=== PATIENT | male | born 1940 | race Caucasian/White ===

== ENCOUNTER 2016-02-27 07:35 | Day surgery (SDC) | payer MEDICARE, OTHER ==
[2016-02-26 11:01] LABS: BASOPHILS 0.3 % (0.0-2.0); EOSINOPHILS 2.4 % (0-7); HEMATOCRIT 34.1 % (42.0-54.0); HEMOGLOBIN 10.8 g/dL (13.5-17.5); IMMATURE GRANULOCYTES 0.1 % (0-5); LYMPHOCYTES 37.6 % (15-50); MCH 27.2 pg (26.0-34.0); MCHC 31.7 g/dL (31.0-37.0); MCV 85.9 fL (80.0-100.0); MEAN PLATELET VOLUME 9.4 fL (7.4-10.4); MONOCYTES 8.7 % (2-11); NEUTROPHILS 50.9 % (40-80); RBC 3.97 10x6/uL (4.20-6.10); RDW 14.9 % (11.5-14.5); WBC 6.8 10x3/uL (4.8-10.8)
[2016-02-26 11:13] LABS: APTT 27.3 SECONDS (22.8-39.4); INR 1.2 (0.85-1.17); PROTIME 15.1 SECONDS (11.6-15.0)
[2016-02-26 11:16] LABS: ANION GAP 13.9 mmol/L (8-16); CALCIUM 8.4 mg/dL (8.5-10.1); CREATININE - SERUM 1.5 mg/dL (0.6-1.3); POTASSIUM - SERUM 4.9 mmol/L (3.5-5.1)
[2016-02-26 11:31] LABS: PLATELET COUNT 216 10x3/uL (130-400)
[~2016-02-27] VITALS: Ht 182.9 cm; Wt 102.5 kg
[~2016-02-27 07:35] MED LIST: BAYER CHEWABLE81 MG PO; BILBERRY100 MG PO; COREG25 MG PO; COZAAR50 MG PO; ECHINACEA PO; ELIQUIS2.5 MG PO; FISH OIL 1,0001 CA1 PO; GLIPIZIDE10 MG PO; GLUCOPHAGE1000 MG PO; IMDUR30 MG PO; LIPITOR80 MG PO; MS CONTIN15 MG PO; MULTIPLE VITAMI1 TA1 PO; NAPROSYN500 MG PO; NEURONTIN 300300 MG PO; OXYCODONE HCL5 MG PO; PROTONIX40 MG PO; SAW PALMETTO450 MG PO; SELENIUM PO; VITAMIN B COMPL1 TAB PO; VITAMIN D3 PO; VITAMIN D31000 UNIT PO; ZINC PO; ZINC50 MG PO; garlic PO
[2016-02-27 08:47] VITALS: BP 176/71; Ht 182.9 cm; Wt 102.5 kg
--- NOTE | 2016-03-11 08:25 | OP ---
PATIENT NAME: KAMRAN XAVIER MEDICAL RECORD: [id number] :38 LOCATION:[facility] ADMISSION DATE: SURGEON: TIAGO NOBLE MD DATE OF OPERATION: 02/27/2016 PREOPERATIVE DIAGNOSIS: Bilateral hip degenerative joint disease. POSTOPERATIVE DIAGNOSIS: Bilateral hip degenerative joint disease. PROCEDURE PERFORMED: Bilateral hip injection under fluoroscopy. SURGEON: Jos Noble MD ANESTHESIA: TIVA. CONDITION: He tolerated procedure well, was transferred to the recovery room in stable condition. INDICATIONS: This is a 75-year-old gentleman with degenerative changes of his hip. He has not been ready to undergo a hip replacement. He presents for hip injections. We discussed risks, benefits, and alternatives. He understood and wished to proceed. OPERATIVE REPORT: The patient was taken to the operating room and placed in supine position. IV sedation was obtained. He then had bilateral hips prepped. C-arm was brought in. Each hip was injected with an IVP dye. Once this was in place, a 4 cc of Marcaine, 1 cc Kenalog was injected in each hip. He tolerated this well, was awakened and transferred to recovery room in stable condition. TRANSINT:[id number] Voice Confirmation ID: [id number] DOCUMENT ID: [id number] TIAGO NOBLE MD at 0825 CC: [id number] DICTATION DATE: 02/27/16 1024 CAN MARKER: 02/27/16 1036 [facility] 02/27/16 [place] [id number] [place] [id number]
== END 2016-02-27 11:40 | disposition home or self-care (01) ==
LOC: D.OPS 07:35 → D.PAN 09:55 → D.OPS 10:00
PROVIDERS: Anesthesiology
DX: M16.0 Bilateral primary osteoarthritis of hip (principal)

== ENCOUNTER → 2016-06-09 06:58 | Outpatient (CLI) | payer MEDICARE, OTHER ==
[2016-02-27 08:47] VITALS: BMI 30.7
== END | disposition home or self-care (01) ==
LOC: D.RT 06:58
DX: J45.909 Unspecified asthma, uncomplicated (principal)

== ENCOUNTER 2016-07-05 09:51 | Inpatient (IN) | payer MEDICARE, OTHER ==
[~2016-07-05] VITALS: Ht 182.9 cm; Wt 100.9 kg
[2016-07-05] VITALS (9 sets, daily range): BP systolic 151–198; BP diastolic 65–113; Ht 182.9 cm; Wt 100.9 kg
[2016-07-05 13:08] LABS: BASOPHILS 0.7 % (0-2); EOSINOPHILS 3.3 % (0-7); HEMATOCRIT 34.8 % (42.0-54.0); HEMOGLOBIN 10.9 g/dL (13.5-17.5); LYMPHOCYTES 40.7 % (15-50); MCH 26.9 pg (26.0-34.0); MCHC 31.3 g/dL (31.0-37.0); MCV 85.9 fL (80.0-100.0); MEAN PLATELET VOLUME 9.5 fL (7.4-10.4); MONOCYTES 11.4 % (2-11); NEUTROPHILS 43.9 % (40-80); PLATELET COUNT 253 10x3/uL (130-400); RBC 4.05 10x6/uL (4.20-6.10); RDW 15.3 % (11.5-14.5); WBC 5.8 10x3/uL (4.8-10.8)
[2016-07-05 13:15] LABS: APTT 27.8 SECONDS (22.8-39.4); INR 1.16 (0.85-1.17); PROTIME 14.7 SECONDS (11.6-15.0)
[2016-07-05 13:17] LABS: ANION GAP 15.5 mmol/L (8-16); CALCIUM 9.2 mg/dL (8.5-10.1); CARBON DIOXIDE 24.8 mmol/L (21.0-32.0); CREATININE - SERUM 1.4 mg/dL (0.6-1.3); POTASSIUM - SERUM 5.3 mmol/L (3.5-5.1)
--- NOTE | 2016-07-05 17:15 | NUR ---
RECEIVED TO ROOM 2210 VIA BED FROM PACU. A/O X3. NO C/O AT THIS TIME. DRESSING TO RIGHT HIP DRY AND INTACT. ICE TO SAME. FAMILY AT BEDSIDE. SKIN INTACT WITHOUT REDNESS. DENIES NEEDS.
--- NOTE | 2016-07-05 18:00 | NUR ---
ATE MOST OF SUPPER. DENIES NEEDS. REPOSITIONED IN BED FOR COMFORT. NO CHANGES NOTED.
--- NOTE | 2016-07-05 20:51 | NUR ---
PATIENT SITTING UP IN BED. NO SIGNS OF DISTRESS NOTED. SCHEDULED MEDS GIVEN. SHIFT ASSESSMENT COMPLETED. ASSISTED TO CHANGE POSITIONS. NO NEEDS VOICED AT THIS TIME. BED LOW. CALL LIGHT IN REACH
[2016-07-06] VITALS: BP 166/89
--- NOTE | 2016-07-06 03:04 | NUR ---
PATIENT RESTING WITH EYES CLOSED AND NO VISIBLE SIGNS OF DISTRESS. BED IN LOWEST POSITION AND CALL LIGHT WITHIN REACH.
[2016-07-06 04:00] VITALS: BP 158/61
[2016-07-06 06:59] LABS: HEMATOCRIT 29.8 % (42.0-54.0); HEMOGLOBIN 9.4 g/dL (13.5-17.5); MCH 26.9 pg (26.0-34.0); MCHC 31.5 g/dL (31.0-37.0); MCV 85.4 fL (80.0-100.0); MEAN PLATELET VOLUME 9.3 fL (7.4-10.4); RBC 3.49 10x6/uL (4.20-6.10); RDW 15.3 % (11.5-14.5)
[2016-07-06 07:00] LABS: WBC 8.4 10x3/uL (4.8-10.8)
--- NOTE | 2016-07-06 07:32 | NUR ---
AWAKE AND ALERT.ORIENTED X3. LUNGS ARE CLEAR BILATERALLY, NO COUGH NOTED. REPORTS USING IS INSTRUCTED. SKIN IS INTACT WITHOUT REDNESS EXCEPT INCISION TO RIGHT HIP WHICH IS CLEAN AND DRY. IV TO RIGHT FOREARM IS PATENT WITHOUT REDNESS AT INSERTION SITE. DENIES NEEDS. REPOSITIONED IN BED PER SELF.
[2016-07-06 08:18] VITALS: BP 150/58
--- NOTE | 2016-07-06 10:30 | NUR ---
URINE SPECIMEN SENT TO LAB
[2016-07-06 10:32] LABS: APPEARANCE CLEAR (CLEAR); BILIRUBIN NEGATIVE (NEGATIVE); COLOR YELLOW (YELLOW); GLUCOSE 100 mg/dL (NEGATIVE); KETONE SMALL mg/dL (NEGATIVE); LEUKOCYTE ESTERASE NEGATIVE (NEGATIVE); NITRITE NEGATIVE (NEGATIVE); PROTEIN NEGATIVE (NEGATIVE); SPECIFIC GRAVITY 1.015 (1.005-1.020); UROBILINOGEN NORMAL (NORMAL)
--- NOTE | 2016-07-06 11:00 | NUR ---
UP IN CHAIR AT BEDSIDE. IN ROOM. DENIES NEEDS.
[2016-07-06 11:52] VITALS: BP 128/54
--- NOTE | 2016-07-06 13:59 | NUR ---
ATE MOST OF LUNCH SITTING UP IN CHAIR AT BEDSIDE. ASSISTED TO BSC PER STAFF. VOIDED CLEAR YELLOW URINE WITHOUT DIFFICULTY. DENIES NEEDS. POSITIONED IN BED FOR COMFORT PER PT AFTER AMBULATION.
--- NOTE | 2016-07-06 15:00 | NUR ---
REQUESTED AND GIVEN 1/2 OF HYDORCODONE PO FOR C/O RIGHT HIP/LEG PAIN LEVEL 5. WILL MONITOR.
--- NOTE | 2016-07-06 15:56 | NUR ---
Patient Name: KAMRAN XAVIER Admission Status: Elective Accout number: [id number] Admission Date: 07-05-2016 : 1938 Admission Diagnosis: Attending: ALYSON Current LOS: 1 Anticipated DC Date: 07-08-2016 Planned Disposition: Outpatient PT\OT Primary Insurance: MEDICARE A & B Discharge Planning Comments: CM MET WITH PATIENT REGARDING DISCHARGE NEEDS AND PLANS. PATIENT STATED HE LIVES WITH HIS (SEGUNDO) AND SHE WILL DRIVE HIM HOME. PATIENT STATED HIS HOME IS SAFE AND THEY HAVE NO STEPS TO ENTER HOME BUT HAS 1 FLIGHT OF STAIRS AT HOME WHICH HE DOES NOT USE. PATIENT IS INDEPENDENT WITH HIS CARE AND HAS A WALKER, CANE, BS COMMODE, GLUCOMETER (CHECKS ONLY WHEN HE FEELS LIKE IT), AND A SAFTY TUB. PATIENTS PCP IS DR. KUMAR AND USES [facility]. PATIENT NEEDS OP PHYSICAL THERAPY AND HE CHOSE [facility] BECAUSE HE GOES THERE 3 X A WEEK ALREADY WORKING OUT. CM MADE APPOINTMENT FOR PATIENT AND IT IS TuesdayJune AT 5:00 PM. CM WILL CONTINUE TO FOLLOW PATIENT WITH D/C NEEDS AND PLANS. PCP DR. KUMAR [facility]- [phone] SE[place]UNDO () [phone] Lithoplate Maker: Kasandra Guerrero Is the patient Alert and Oriented? Yes 0 * How many steps to enter\exit or inside your home? 0 0 * PCP DR. KUMAR 0 * Pharmacy [facility] 0 * Preadmission Environment Home with Family 0 * ADLs Independent 0 * Equipment Bedside Commode Cane Glucometer Walker 0 * Other Equipment SAFETY TUB INSTALLED 0 * List name and contact numbers for known caregivers / representatives who currently or will assist patient after discharge: SEGUNDO [phone] * Community resources currently utilized None 0 * Additional services required to return to the preadmission environment? Yes 0 * Can the patient safely return to the preadmission environment? Yes 0 * Has this patient been hospitalized within the prior 30 days at any hospital? No 0 Grand Total: 0
[2016-07-06 16:28] VITALS: BP 185/68
--- NOTE | 2016-07-06 18:46 | NUR ---
ATE ALL OF SUPPER HE WANTED. STATED THEY PUT TO MUCH FOOD ON THE PLATE. DENIES NEEDS. NO C/O VOICED. NO CHANGES NOTED.
[2016-07-06 20:00] VITALS: BP 160/65
[2016-07-07] VITALS: BP 149/65
--- NOTE | 2016-07-07 01:35 | NUR ---
REC'D PATIENT LYING IN BED. IS ALERT AND ORIENTED X4. NO DISTRESS NOTED. DENIED PAIN AT THIS TIME. DENIED FURTHER NEEDS. INSTRUCTED TO CALL IF NEEDED ANYTHING. VERBALIZED UNDERSTANDING. BED LOW, LOCKED, CALL LIGHT IN REACH, ALARM ON.
[2016-07-07 04:00] VITALS: BP 156/62
[2016-07-07 06:54] LABS: HEMATOCRIT 28.8 % (42.0-54.0); HEMOGLOBIN 9.1 g/dL (13.5-17.5); MCH 26.9 pg (26.0-34.0); MCHC 31.6 g/dL (31.0-37.0); MCV 85.2 fL (80.0-100.0); MEAN PLATELET VOLUME 9.6 fL (7.4-10.4); RBC 3.38 10x6/uL (4.20-6.10); RDW 15.5 % (11.5-14.5); WBC 9.2 10x3/uL (4.8-10.8)
--- NOTE | 2016-07-07 07:15 | NUR ---
REPORT RECEIVED FROM DIRECTOR OUTPATIENT SERVICES NURSE. CALL LIGHT IN REACH.
[2016-07-07 07:56] VITALS: BP 167/66
--- NOTE | 2016-07-07 08:40 | NUR ---
PERCOCET PO WITH AM MEDS ADMINISTERED. REFUSED SCDs. IS IN USE. CALL LIGHT IN REACH. WILL CONTINUE WITH PLAN OF CARE.
--- NOTE | 2016-07-07 10:25 | NUR ---
DENIES NEEDS AT THIS TIME. CALL LIGHT IN REACH.
[2016-07-07 12:34] VITALS: BP 147/57
--- NOTE | 2016-07-07 12:59 | NUR ---
EATING LUNCH AT THIS TIME. CALLLIGHT IN REACH
--- NOTE | 2016-07-07 14:20 | NUR ---
NO NEEDS VOICED AT THIS TIME. CALL LIGHT IN REACH.
[2016-07-07 15:50] VITALS: BP 151/56
--- NOTE | 2016-07-07 16:25 | NUR ---
C/O PAIN. NORCO PO.
--- NOTE | 2016-07-07 18:17 | NUR ---
NO CHANGES IN INITIAL ASSESSMENT. CALL LIGHT IN REACH. REFUSES SCDs. WILL CONTINUE WITH PLAN OF CARE.
--- NOTE | 2016-07-07 19:45 | NUR ---
REC'D PATIENT LYING IN BED. ALERT AND ORIENTED X4. NO DISTRESS NOTED. DENIED PAIN AT THIS TIME. INSTRUCTED TO CALL IF NEEDED ANYTHING. VERBALIZED UNDERSTANDING. BED LOW, LOCKED, CALL LIGHT IN REACH.
[2016-07-07 20:00] VITALS: BP 141/56
[2016-07-08] VITALS: BP 165/56
--- NOTE | 2016-07-08 01:45 | NUR ---
PATIENT IS RESTING COMFORTABLE IN BED. NO DISTRESS NOTED. WILL CONT TO MONITOR. BED LOW, LOCKED, CALL LIGHT IN REACH.
[2016-07-08 04:00] VITALS: BP 150/60
--- NOTE | 2016-07-08 07:00 | NUR ---
REPORT RECEIVED FROM CELL GENETICIST NURSE. CALL LIGHT IN REACH.
[2016-07-08 08:09] VITALS: BP 148/70
[2016-07-08] MEDS ORDERED: ELIQUIS2.5 MG PO (08:32)
[2016-07-08] MEDS ORDERED: PERCOCET 10/3251 TA1 PO (08:33)
--- NOTE | 2016-07-08 09:28 | NUR ---
AM MEDS ADMINISTERED. CALL LIGHT IN REACH. JULITO PO. REFUSES SCDs.
--- NOTE | 2016-07-08 09:57 | NUR ---
CM note: Met with patient and , patient asking when they are going to be discharged. Pt is set up with [facility] at 5:00pm to day for evaluation. Pt and states they have everything they need for home and the walker is in the car. will drive patient home. No other needs verbalized. Mariana London RN
--- NOTE | 2016-07-08 11:19 | NUR ---
DRSG TO RIGHT HIP CHANGED. DC INSTRUCTIONS EXPLAINED TO PATIENT AND . VERBALIZED UNDERSTANDING. RX FOR ELIQUIS AND PERCOCET HANDED TO . DC'D TO VEHICLE VIA WC WITH .
--- NOTE | 2016-07-13 13:11 | OP ---
PATIENT NAME: KAMRAN XAVIER MEDICAL RECORD: [id number] :38 LOCATION:[facility] ADMISSION DATE:07/05/16 SURGEON: ARMANDO HOUSTON MD DATE OF OPERATION: 07/05/2016 PREOPERATIVE DIAGNOSIS: Degenerative arthritis of the right hip. POSTOPERATIVE DIAGNOSIS: Degenerative arthritis of the right hip. PROCEDURE: Right total hip arthroplasty. SURGEON: Armando Houston MD. ANESTHESIA: General. INTRAOPERATIVE COMPLICATIONS: None. SUMMARY OF PATHOLOGIC FINDINGS: The patient has severe degenerative arthritis, right hip consistent with preoperative radiographs. IMPLANTS USED: [place] Accolade II size 6 stem, size 56 alpha code E Tritanium hemispherical cluster hole shell, size 36 E0 polyethylene insert and Biolox delta ceramic V40 femoral head -2.5 36. ESTIMATED BLOOD LOSS: 100 cc. OPERATIVE SUMMARY IN DETAIL: After obtaining the appropriate preoperative orthopedic surgery consents as well as anesthetic consultation, evaluation and clearance, the patient was brought to the operating room and placed on the operating table in supine position. After general laryngeal mask was administered, the patient was placed in left lateral decubitus position. All pressure points were well padded. The patient was held firmly to the operating table using the vacuum pack suction system. Right lower extremity and hip were then prepped and draped in a routine sterile fashion. Curvilinear incision made over the greater trochanter, taken of IT band, which was split in line with fibers. The IT band reveal the gluteus medius minimus attachment to the greater trochanter. These were reflected anteriorly. The hip capsule was split in a T-type action fashion and saved for later reapproximation. Hip was dislocated and femoral neck cut was made using the femoral neck cutting guide for the Accolade II system. The acetabulum was completely exposed. Serial and sequential labrectomy was followed by reaming to a size 55, thus the size 56 Tritanium cup was put into place with good capture. Polyethylene shell was put into place, tamped and checked with good capture as well. The distal femur was exposed. Serial and sequential reaming and broaching were done for a size 6 TMZF coated Accolade II stem which was tamped into place. Trials were undertaken and it was thought that the -25 was the most appropriate for leg length quaker. The hip was reduced, taken through range of motion. Intraoperative radiographs were taken and showed good position and placement of all components. The wound was copiously irrigated. The hip capsule was closed using #2 Ethibond followed by reapproximation of the gluteus medius and minimus back to the greater trochanter transosseously using #5 Ethibond. Having completed this, IT band was closed with #2 Ethibond followed by #1 Vicryl, 2-0 Vicryl and skin alivia. Sterile dressings were applied. The patient was awakened, taken to recovery room in stable condition. All final needle and sponge counts were correct. OPERATIVE REPORT [id number] DUCKAMRAN JUAN TRANSINT:[id number] Voice Confirmation ID: [id number] DOCUMENT ID: [id number] ROSEMARIE RANGEL, ARMANDO MANCERA at 1311 CC: [id number] DICTATION DATE: 07/05/16 1629 TARIFF PUBLISHING AGENT: 07/06/16 0121 [facility] IN 07/08/16 [place] [id number] [place] [address]
== END 2016-07-08 11:19 | disposition home or self-care (01) | DRG 470 ==
LOC: D.SDCHOLD 09:51 → D.MS 09:51 → D.SDCHOLD 12:30 → D.MS 16:23
PROVIDERS: ADMIT Orthopaedic Surgery
PROC: 0SR902Z Replacement of Right Hip Joint with Metal on Polyethylene Synthetic Substitute, Open Approach (ICD-10-PCS; principal; 2016-07-05 12:30)
DX: M16.11 Unilateral primary osteoarthritis, right hip (principal); D62 Acute posthemorrhagic anemia; N17.9 Acute kidney failure, unspecified; E11.65 Type 2 diabetes mellitus with hyperglycemia; I10 Essential (primary) hypertension; E87.5 Hyperkalemia; R00.1 Bradycardia, unspecified

== ENCOUNTER 2016-09-03 12:05 | Inpatient (IN) | payer MEDICARE, OTHER ==
[~2016-09-03] VITALS: Ht 182.9 cm; Wt 99.2 kg
--- NOTE | ~2016-09-03 | HEMODYNAMI ---
PATIENT:KAMRAN XAVIER MEDICAL RECORD: [id number] : 36 [facility] AD[facility] DATE: 09/03/16 Generatedon:09/03/201618:44 Patient name: KAMRAN XAVIER Patient #: [id number] SS N: : 1940 Date of study: 09/03/2016 Page: Of Hemodynamic Procedure Report Patient Data Patient Demographics Procedure consent was obtained First Name: KAMRAN Gender: Male Last Name: DUC : 1940 [facility] Initial: C Age: 75 year(s) Patient #: [id number] Race: Additional ID: [id number] Contact details Address: [place] [address] [place] [place] [facility] Zip code: [address] Past Medical History History of disease Date Diagnosis Comments CAD Hypertension Diabetes Allergies: No known allergies Admission Admission Data Admission Date: 09/03/2016 Admission Time: 12:05 [facility] Weight (lbs.): 229.28 Weight (kg.): 104 Procedure Procedure Types Cath Procedure Diagnostic Procedure LHC LHC w/Coronaries w/Grafts Temporary Pacemaker PCI Procedure Coronary Stent Initial x2 Miscellaneous Procedures Moderate Sedation up to 45 minutes Peripheral Cath Diagnostic Procedure Cath Peripheral Xebxb-Dwfajuk-Gbo-Off Peripheral vascular Intervention Stent Stent Iliac w/plasty Initial Procedure Description Procedure Date Procedure Date: 09/03/2016 Procedure Start Time: 17:48 Procedure End Time: 18:40 Procedure Staff Name Function Niels Franco MD Performing Physician Bertha Frausto RN Nurse Robert Forman RT Monitor Miranda Knapp RT Scrub Procedure Data Cath Procedure Fluoroscopy Diagnostic fluoroscopy Total fluoroscopy Time: time: 12.9 min 12.9 min Diagnostic fluoroscopy Total fluoroscopy dose: dose: 2259 mGy 2259 mGy Contrast Material Contrast Material Type Amount (ml) Isovue 300 142 Entry Location Entry Primary Successful Side Size Upsize 1 Upsize Entry Closure Ball ccessful Closure Location (Fr) (Fr) 2 (Fr) Remarks Device Remarks Femoral Right 6 Fr Exoseal artery Short Femoral Right 6 Fr Sheath vein Short sutured in place Femoral Left 6 Fr 6 Fr 6 Fr Exoseal artery Short Mid-Length Short Estimated blood loss: 10 ml Diagnostic catheters Device Type Used For End Catheter Placement Cordis 5Fr 3DRC Catheter Procedure (MP) Cordis 5Fr 3DRC Catheter Procedure (MP) Cordis 5Fr JL 4.0 Procedure Catheter (MP) Cordis 5Fr 3DRC Catheter Procedure (MP) Diagnostic Infinity 5Fr Procedure AR 2 MOD catheter Procedure Complications No complications Procedure Medications Medication Administration Route Dosage Oxygen NRB 12 l/min Lidocaine 2% added to field 20 Heparin Flush Bag added to field 2 bags (1000units/500ml NS) 0.9% NaCl I.V. 100 ml/hr Fentanyl I.V. 50 mcg Fentanyl I.V. 50 mcg Heparin Bolus I.V. 4000 units Integrilin (Bolus I.V. 9.5 ml 2mg/ml) Fentanyl I.V. 50 mcg Fentanyl I.V. 50 mcg Oxygen NC 4 l/min Plavix P.O. 600 mg Hemodynamics Rest Heart Rate: 50 (bpm) Snapshots Pre Cath Intra NCS Post Cath Vital Signs Time Heart Resp SPO2 etCO2 [id number] NIBP (mmHg) Rhythm Pain Sedati on Rate (ipm) (%) (mmHg) (mmHg) Status Level (bpm) 17:34:16 41 20 100 0 0 129/56(86) 3 3 (11) , 10(A) degree Tolerable Heart Block 17:44:24 43 23 100 0 0 126/50(85) 3 3 (11) , 10(A) degree Tolerable Heart Block 17:48:50 43 23 100 0 0 129/54(84) 3 3 (11) , 10(A) degree Tolerable Heart Block 17:53:13 59 17 100 0 0 121/46(89) 3 0 (11) , 10(A) degree No pain Heart Block 17:57:35 60 16 100 0 0 118/51(90) 3 0 (11) , 10(A) degree No pain Heart Block 18:01:51 60 17 100 0 0 122/52(92) 3 0 (11) , 10(A) degree No pain Heart Block 18:06:11 60 17 100 0 0 119/47(81) 3 0 (11) , 10(A) degree No pain Heart Block 18:10:33 60 16 100 0 0 127/48(101) 3 0 (11) , 10(A) degree No pain Heart Block 18:14:57 59 16 100 0 0 121/52(85) 3 0 (11) , 10(A) degree No pain Heart Block 18:19:21 59 14 100 0 0 131/48(97) 3 0 (11) , 10(A) degree No pain Heart Block 18:23:38 59 15 100 0 0 128/55(89) 3 0 (11) , 9(A) degree No pain Heart Block 18:28:02 62 16 94 0 0 123/52(96) 3 0 (11) , 10(A) degree No pain Heart Block 18:32:22 59 15 96 0 0 125/58(88) 3 0 (11) , 10(A) degree No pain Heart Block 18:36:44 59 18 93 0 0 135/55(107) 3 0 (11) , 10(A) degree No pain Heart Block Medications Time Medication Route Dose Verified Delivered Reason Notes Effectiveness by by 17:20:19 Oxygen NRB 12 Niels Buffie Per physician l/min Joan Frausto RN 17:44:30 Lidocaine 2% added 20ml Niels Niels for local to vial Joan Franco MD anesthetic field 17:44:35 Heparin Flush added 2 Niels Niels used for Bag to bags Joan Franco MD procedure (1000units/500ml field NS) 17:44:44 0.9% NaCl I.V. 100 Niels Buffie Per physician ml/hr Joan Frausto RN 17:49:28 Fentanyl I.V. 50 Niels Buffie for chest pain mcg Joan Frausto RN 17:57:15 Fentanyl I.V. 50 Niels Buffie for chest pain mcg Joan Frausto RN 18:05:14 Heparin Bolus I.V. 4000 Niels Buffie for verifi ed units Joan Frausto RN anticoagulation with dr franco 18:08:26 Integrilin I.V. 9.5 Niels Buffie for Wasted (Bolus 2mg/ml) ml Joan Frausto RN antiplatelet 0.5 ml therapy of vial 18:14:44 Fentanyl I.V. 50 Niels Buffie for chest pain mcg Joan Frausto RN 18:29:07 Fentanyl I.V. 50 Niels Buffie for chest pain mcg Joan Frausto RN 18:29:21 Oxygen NC 4 Niels Stnoe Per physician l/min Joan Frausto RN 18:32:01 Plavix P.O. 600 Niels Stone for mg Joan Frausto RN antiplatelet therapy Procedure Log Time Note 17:15:28 Robert Forman RT(R) sent for patient. Start room use. 17:20:19 Oxygen 12 l/min NRB was administered by Bertha Frausto RN; Per physician; 17:33:35 Time tracking: Call back 17:33:45 Plan of Care:Hemodynamics will remain stable., Cardiac rhythm will remain stable., Comfort level will be maintained., Respiratory function will remain adequate., Patient/ family verbilizes understanding of procedure., Procedure tolerated without complication., Recovers from procedure without complications.. 17:33:58 Patient received from PCU to CCL 1 Alert and oriented. Tansferred to table in Supine position. 17:33:59 Vital chart was started 17:33:59 Warm blankets applied, and sonia hugger turned on for patient comfort. 17:34:00 Correct patient and procedure confirmed by team. 17:34:01 Signed procedure consent form obtained from patient. 17:34:01 ECG and BP/O2 sat monitors applied to patient. 17:44:17 Baseline sample Acquired. 17:44:22 Rhythm: sinus bradycardia 17:44:24 Patient arrives emergently. 17:44:30 Lidocaine 2% 20ml vial added to field was administered by Niels Franco MD; for local anesthetic; 17:44:35 Heparin Flush Bag (1000units/500ml NS) 2 bags added to field was administered by Niels Franco MD; used for procedure; 17:44:44 0.9% NaCl 100 ml/hr I.V. was administered by Bertha Frausto RN; Per physician; 17:45:20 Full Disclosure recording started 17:45:24 Pre-procedure instructions explained to patient. 17:45:24 Pre-op teaching completed and patient verbalized understanding. 17:45:27 Family in patients room. 17:45:28 Patient NPO since Midnight. 17:45:31 Is the patient allergic to Iodine/contrast media? No. 17:45:38 Is patient on blood thinner?No 17:45:40 Patient diabetic? Yes. 17:45:41 If diabetic: On Metformin? Yes 17:45:43 If on Metformin: Last Dose? 09/02/2016 17:45:47 Previous problem with sedation/anesthesia? No ? 17:45:48 Snore? Yes 17:45:49 Sleep apnea? No 17:45:50 Deviated septum? No 17:45:53 Opens mouth fully? Yes 17:45:54 Sticks out tongue? Yes 17:46:06 Airway obstruction? No ? 17:46:07 Dentures? No ? 17:46:09 Pre procedure: right dorsailis pedis pulse 1+ Palpable, but thready & weak; easily obliterated 17:46:30 IV patent on arrival in left forearm with 0.9% NaCl at [facility]. 17:46:32 Lab results completed and on chart. 17:46:36 Right groin area was prepped with chlora-prep and draped in sterile fashion 17:46:36 Alarms reviewed by R. N. 17:46:37 Sharps counted by scrub and verified by R.N. 17:46:38 --------ALL STOP TIME OUT------ 17:46:39 Final Timeout: patient, procedure, and site verified with staff and physician. All members of the team are in agreement. 17:46:42 Right groin site verified by team. 17:46:48 Physical assessment completed. ASA score P 4 - A patient with severe systemic disease that is a constant threat to life as per Niels Franco MD. 17:46:51 Sedation plan: IV Moderate Sedation Versed, Fentanyl 17:48:52 Procedure started. 17:48:56 Local anesthetic to right femoral artery with Lidocaine 2% by Niels Franco MD.INITIAL ACCESS ONLY 17:49:06 A 6 Fr Short sheath was inserted into the Right Femoral artery 17:49:15 A 6 Fr Short sheath was inserted into the Right Femoral vein 17:49:21 Use device set Femoral Dx 17:49:23 Tegaderm 4 x 4 opened to sterile field. 17:49:24 Acist Hand Control opened to sterile field. 17:49:25 Acist Manifold opened to sterile field. 17:49:26 Acist Syringe opened to sterile field. 17:49:26 Bag Decanter opened to sterile field. 17:49:26 Medline Cath Pack opened to sterile field. 17:49:27 St Angelo 260cm J .035 wire opened to sterile field. 17:49:28 Fentanyl 50 mcg I.V. was administered by Bertha Frausto RN; for chest pain; 17:49:28 Diagnostic Infinity 5Fr Multipack catheter opened to sterile field. 17:49:42 Terumo 6Fr [place] Sheath opened to sterile field. 17:49:42 Terumo 6Fr [place] Sheath opened to sterile field. 17:50:04 5Fr J Tip Temporary Pacing Catheter opened to sterile field. 17:50:34 Temporary pacer inserted 17:51:46 Temporary pacer turned on with the following settings: Rate 60, MA 5, Mode: Demand. 17:52:44 A Cordis 5Fr 3DRC Catheter (MP) was advanced over the wire and used for Procedure. 17:54:31 Unable to advanced catheter. 17:54:49 Choice PT XS wire advanced. 17:55:04 Left groin prepped and draped. 17:56:17 Wire and catheter removed. Unable to cross lesion. 17:56:23 Terumo 6Fr [place] Sheath opened to sterile field. 17:56:43 Local anesthetic to left femerol artery with Lidocaine 2% by Niels Franco MD.ADDITIONAL ACCESS 17:56:55 A 6 Fr Short sheath was inserted into the Left Femoral artery 17:57:15 Fentanyl 50 mcg I.V. was administered by Bertha Frausto RN; for chest pain; 17:57:47 [place] Sci Choice PT Extra Support J 300cm .014 gu opened to sterile field. 17:57:48 Merit BasixCompak Inflation Kit opened to sterile field. 17:57:48 Terumo ADVANTAGE 260CM glide wire opened to sterile field. 17:57:48 Terumo TORQUE DEVICE PLASTIC .038 opened to sterile field. 17:58:40 A Cordis 5Fr 3DRC Catheter (MP) was advanced over the wire and used for Procedure. 17:59:10 Glidewire advanced. 17:59:14 Catheter exchanged over wire. 17:59:59 Cordis 6Fr Brite Tip 35cm Sheath opened to sterile field. 18:00:09 Sheath upsized to a 6 Fr Mid-Length. 18:00:31 A Cordis 5Fr JL 4.0 Catheter (MP) was advanced over the wire and used for Procedure. 18:01:16 Procedure type changed to Cath procedure, Diagnostic procedure, LHC, LHC w/Coronaries w/Grafts, Temporary Pacemaker, PCI procedure, Coronary Stent Initial x2, Miscellaneous Procedures, Moderate Sedation up to 45 minutes, Peripheral Cath Diagnostic Procedure, Cath Peripheral, Txnmi-Tdyjzcq-Cmj-Off, Peripheral vascular Intervention, Stent, Stent Iliac w/plasty Initial 18:01:42 LCA angiography performed. 18:01:57 Catheter removed. 18:03:12 A Cordis 5Fr 3DRC Catheter (MP) was advanced over the wire and used for Procedure. 18:03:19 SYKES to LAD angiography performed. 18:03:26 Patient Weight : 229.28 kg 18:03:38 RCA angiography performed. 18:04:07 SVG closed. 18:04:22 SVG closed. 18:04:36 Catheter removed. 18:04:57 Cordis 6FR XBLAD 4.0 guide catheter opened to sterile field. 18:04:58 Outdoor Creations Launcher 6Fr 3DRC guide catheter opened to sterile field. 18:05:04 A Diagnostic Infinity 5Fr AR 2 MOD catheter was advanced over the wire and used for Procedure. 18:05:14 Heparin Bolus 4000 units I.V. was administered by Bertha Frausto RN; for anticoagulation; verified with dr franco 18:05:54 SVG to Diag angiography performed. 18:05:55 Catheter removed. 18:06:58 6 Fr 3DRC guide catheter was inserted over the wire 18:07:03 AdventureDropisper wire advanced. 18:07:47 Dumont AdventureDropisper J 300cm 0.014 guide wire opened to sterile field. 18:08:26 Integrilin (Bolus 2mg/ml) 9.5 ml I.V. was administered by Bertha Frausto RN; for antiplatelet therapy; Wasted 0.5 ml of vial 18:09:14 Wire advanced across lesion. 18:09:35 Inflation Number: 1 A [place] OTW 2.25 x 15 stent was prepped and advanced across the Prox RCA. The stent was deployed at 13 WALLY for 0:10 (min:sec). 18:09:51 Stent catheter was removed intact over wire. 18:09:52 Wire removed. 18:09:53 Guide catheter removed. 18:09:59 6 Fr XBLAD 4 guide catheter was inserted over the wire 18:10:50 Whisper wire advanced. 18:13:13 Wire advanced across lesion. 18:13:59 Inflation Number: 1 A [place] OTW 3.5 x 26 stent was prepped and advanced across the Prox CX. The stent was deployed at 15 WALLY for 0:10 (min:sec). 18:14:17 Stent catheter was removed intact over wire. 18:14:18 Wire removed. 18:14:18 Guide catheter removed. 18:14:44 Fentanyl 50 mcg I.V. was administered by Bertha Frausto RN; for chest pain; 18:16:42 Glidewire advance across left iliac lesion. 18:19:35 Inflation Number: 1 A Cordis Renetta 7 x 29 x 135 stent was prepped and advanced across the Ostial Common Iliac, Left. The stent was deployed at 13 WALLY for 0:10 (min:sec). 18:20:28 Stent catheter was removed intact over wire. 18:20:52 Inflation number: 2 A Cordis Powerflex Pro 8.0 x 40 x 135cm balloon was prepped and advanced across the Ostial Common Iliac, Left, then inflated to 11 WALLY for 0:10 (min:sec). 18:21:04 2.0 Silk 685H opened to sterile field. 18:21:32 Balloon removed over the wire. 18:21:35 Wire removed. 18:22:28 Cordis 6Fr Exoseal opened to sterile field. 18:22:34 Cordis 6Fr Exoseal opened to sterile field. 18:23:00 Sheath upsized to a 6 Fr Short. 18:23:00 Sheath removed intact; hemostasis achieved with Exoseal to the Left Femoral artery. 18:27:58 Sheath removed intact; hemostasis achieved with Exoseal to the Right Femoral artery. 18:28:01 Procedure ended.(Physican Out) 18:29:07 Fentanyl 50 mcg I.V. was administered by Bertha Frausto RN; for chest pain; 18:29:21 Oxygen 4 l/min NC was administered by Bertha Frausto RN; Per physician; 18:31:11 Fluoroscopy time 12.90 minutes. 18:31:15 Fluoroscopy dose: 2259 mGy 18:31:15 Flurop Dose total: 2259 18:31:19 Contrast amount:Isovue 300 142ml. 18:31:21 Sharps counted by scrub and verified by R.N. 18:32:01 Plavix 600 mg P.O. was administered by Bertha Frausto RN; for antiplatelet therapy; 18:33:48 Sheath removed intact; hemostasis achieved with Sheath sutured in place to the Right Femoral vein. 18:34:13 6fr venous sheath was sutured in with 2-0 Silk.. 18:34:41 Insertion/operative site no bleeding no hematoma. 18:34:43 Post Procedure Pulses reassessed and unchanged 18:34:48 Post-procedure physical assessment completed. ASA score P 4 - A patient with severe systemic disease that is a constant threat to life as per Niels Franco MD. 18:34:57 Post procedure rhythm: paced 18:35:00 Estimated blood loss: 10 ml 18:35:02 Post procedure instruction explained to patient.Patient verbalizes understanding. 18:35:02 Patient needs reinforcement of post procedure teaching. 18:35:19 Procedure Complication : No complications 18:36:24 Procedure and supply charges have been captured, reviewed, submitted and are correct. 18:36:42 Tegaderm 4 x 4 opened to sterile field. 18:36:42 Tegaderm 4 x 4 opened to sterile field. 18:39:51 Vital chart was stopped 18:39:52 See physician's report for complete and final results. 18:39:55 Report given to CVICU. 18:39:59 Patient transfered to CVICU with Bed. 18:40:01 Procedure ended. 18:40:01 Full Disclosure recording stopped 18:40:06 End room use (Document Last) Intervention Summary Intervention Notes Time ActionType Lesion and Equipment Action# Pressure Duration Attributes Used 18:09:35 Place stent Prox RCA [place] OTW 1 13 00:10 2.25 x 15 stent 18:13:59 Place stent Prox CX [place] OTW 1 15 00:10 3.5 x 26 stent 18:19:35 Place stent Ostial Cordis 1 13 00:10 Common Renetta 7 Iliac, Left x 29 x 135 stent 18:20:52 Inflate Ostial Cordis 2 11 00:10 balloon Common Powerflex Iliac, Left Pro 8.0 x 40 x 135cm balloon Device Usage Item Name Manufacture Quantity Catalog Number Hospital Part Current Mini mal Lot# / Charge Number Stock Stock Serial# Code Tegaderm 4 3M 3 [id number] [id number] 576068 5 x 4 Acist Hand Acist 1 76600 601615 094885 701134 5 Control Medical Systems Inc Acist Acist 1 61089 565047 900799 881415 5 Manifold Medical Systems Inc Acist Acist 1 48579 698188 147175 326177 20 Syringe Medical Systems Inc Bag Microtek 1 2002S 083821 43604 973854 5 NerVve Technologies Inc. Medline Cardinal 1 [id number] 077663 44063 536912 [address] [facility] Angelo 1 633739 516583 267495 550976 30 260cm J .035 wire Diagnostic Cardinal 1 [id number] 940677 85437 203150 30 Infinity Health 5Fr Multipack catheter Terumo 6Fr Terumo 3 [id number] 835921 804139 859034 40 [place] Sheath 5Fr J Tip Gamboa 1 [id number] 723072 82871 698684 2 Temporary Lifesciences Pacing Catheter Cordis 5Fr Cardinal 1 258909 5 3DRC Health Catheter (MP) [place] Sci [place] 1 [id number] 868164 5 Choice PT Scientific Extra Support J 300cm .014 Merit Merit 1 QV2274 321232 656409 306605 15 BasixKunshan RiboQuark Pharmaceutical Technologypak Medical Inflation Kit Terumo Terumo 1 [id number] 578959 256016 5 ADVANTAGE 260CM glide wire Terumo [place] 1 TD01 071495 966654 117512 5 TORQUE Scientific DEVICE PLASTIC .038 Cordis 6Fr Cardinal 1 [id number] 849666 329305 308617 1 Brite Tip Health 35cm Sheath Cordis 5Fr Cardinal 1 905064 5 JL 4.0 Health Catheter (MP) Cordis 6FR Cardinal 1 [id number] 203255 403703 990887 3 XBLAD 4.0 Health guide catheter Medtronic Medtronic 1 [id number] 109544 069857 136287 1 Launcher 6Fr 3DRC guide catheter Diagnostic Cardinal 1 [id number] 379852 532364 005218 20 Infinity Health 5Fr AR 2 MOD catheter Dumont Dumont 1 [id number] 911189 893220 423136 5 Whisper J Vascular 300cm 0.014 guide wire Matthew OTW Medtronic 1 [id number] 795454 58509 269885 5 [id number] 2.25 x 15 stent Matthew OTW Medtronic 1 [id number] 646795 1932238 303491 5 [id number] 3.5 x 26 stent Cordis Cardinal 1 [id number] 784451 556433 5 [id number] Renetta 7 x Health 29 x 135 stent Cordis Cardinal 1 [id number] 333928 484027 931379 5 Powerflex Health Pro 8.0 x 40 x 135cm balloon 2.0 Silk Ethicon 1 685H 601028 54239 918546 5 685H Cordis 6Fr Cardinal 2 EX600 674883 932869 708382 10 Attentio Signature Audit [place] Stage Time Signature Unsigned Intra-Procedure 09/03/2016 Robert Forman 6:44:21 PM RT(R) Signatures Monitor : Robert Forman RT Signature : Date : Time : [address] [address]
--- NOTE | 2016-09-03 03:00 | NUR ---
NO CHANGES NOTED AT THIS TIME GROIN SITES SOFT WITH NO S/S OF HEMATOMA. PEDAL PULSES PRESENT VIA DOPPLER. HR 60 PACED ON MONITOR.
[~2016-09-03 12:05] MED LIST changes: +PERCOCET 10/3251 TA1 PO
[2016-09-03] MEDS ORDERED: FISH OIL 1,0001 CA1 PO (12:45)
[2016-09-03] MEDS ORDERED: NAPROSYN500 MG PO (12:47)
[2016-09-03] MEDS ORDERED: BAYER CHEWABLE81 MG PO (12:48)
[2016-09-03] MEDS ORDERED: OMEPRAZOLE40 MG PO (12:48)
[2016-09-03] MEDS ORDERED: NIACIN100 MG PO (12:49)
[2016-09-03] MEDS ORDERED: K-TAB10 MEQ PO (12:49)
[2016-09-03 12:52] VITALS: BP 153/51; BMI 31.0
--- NOTE | 2016-09-03 12:59 | NUR ---
PT TO ROOM ADMISSION COMPLETE. PT ALERT AND ORIENTED VS ARE WNL. AT BEDSIDE. WILL REPORT TO HUMBLE URIOSTEGUI WHO WILL BE TAKING OVER CARE OF PT. ATTEMPTED TO SITE PT PIV X2 STICKS UNSUCCESSFUL. LISBET URIOSTEGUI TO SITE PT
[2016-09-03 13:41] LABS: BASOPHILS 0.3 % (0-2); EOSINOPHILS 0.4 % (0-7); HEMATOCRIT 30.7 % (42.0-54.0); HEMOGLOBIN 9.7 g/dL (13.5-17.5); IMMATURE GRANULOCYTES 0.1 % (0-5); LYMPHOCYTES 39.2 % (15-50); MCH 26.4 pg (26.0-34.0); MCHC 31.6 g/dL (31.0-37.0); MCV 83.7 fL (80.0-100.0); MEAN PLATELET VOLUME 9.7 fL (7.4-10.4); MONOCYTES 13.6 % (2-11); NEUTROPHILS 46.4 % (40-80); RBC 3.67 10x6/uL (4.20-6.10); RDW 16.7 % (11.5-14.5); WBC 10.6 10x3/uL (4.8-10.8)
[2016-09-03 14:03] LABS: PLATELET COUNT 237 10x3/uL (130-400)
[2016-09-03 14:10] LABS: APTT 28.8 SECONDS (22.8-39.4); INR 1.28 (0.85-1.17); PROTIME 15.9 SECONDS (11.6-15.0)
[2016-09-03 14:13] LABS: ALBUMIN 3.6 g/dL (3.4-5.0); ANION GAP 21.8 mmol/L (8-16); BILIRUBIN - TOTAL 1.05 mg/dL (0.2-1.3); CALCIUM 8.6 mg/dL (8.5-10.1); CARBON DIOXIDE 19.2 mmol/L (21.0-32.0); CREATININE - SERUM 2.4 mg/dL (0.6-1.3); PROTEIN - SERUM 6.9 g/dL (6.4-8.2); THYROID STIMULATING HORMONE 3.53 uIU/mL (0.36-3.74)
[2016-09-03 14:18] LABS: CKMB 1.6 U/L (0.0-3.6); CREATINE KINASE 96 UL (21-232)
--- NOTE | 2016-09-03 17:28 | NUR ---
1700 - RAMU, MECHANICAL DESIGN ENGINEER FACILITIES, SAID THAT SOMEONE NEEDED TO GO CHECK ON PT. WENT TO CHECK ON PT AND HE WAS DIAPHORETTIC, SOB AND CHEST PAIN. RAPID RESPONSE CALLED. SEE RAPID RESPONSE SHEET. PT TO MANAGER QUANTITATIVE.
[2016-09-03 19:00] VITALS: BP 142/53
--- NOTE | 2016-09-03 19:00 | NUR ---
AOX4, FOLLOWS COMMANDS. VSS. RT AND LT GROIN WITH DSG CDI. GROIN SITES SOFT WITH NO EVIDENCE OF HEMATOMA. RT GROIN TPM SITE, DDD 60. LEGS STRAIGHT, PT LYING FLAT. NO C/O PAIN AT THIS TIME. PEDAL PULSES PRESENT VIA DOPPLER. HR 60, PACED ON MONITOR. DENIES NEEDS AT THIS TIME. CPOC.
--- NOTE | 2016-09-03 19:00 | NUR ---
RECIEVED PT TO ROOM FROM SMELTER CHARGER. ATTACHED TO ICU MONITORS. RIGHT GROIN AND LEFT GROIN ACCESSED. LEFT GROIN WITH CLEAR OPSITE DRESSING THATS CLEAN AND INTACT. RIGHT GROIN HAS TPM. DDD 60. AMA .3 AND VMA 5. GROIN SITES SOFT WITH NO EVIDENCE OF HEMATOMA. BILAT PEDAL PULSES FOUND USING DOPPLER. PT INSTRUCTED TO NOT BEND LEGS OR SIT UP. VERBALIZED UNDERSTANDING.
[2016-09-03 20:00] VITALS: BP 132/55
[2016-09-03 20:15] LABS: CKMB 1.3 U/L (0.0-3.6); CREATINE KINASE 90 UL (21-232)
[2016-09-03 20:18] LABS: TROPONIN-I 0.096 ng/mL (0.000-0.060)
[2016-09-03 21:00] VITALS: BP 149/75
--- NOTE | 2016-09-03 21:00 | NUR ---
FAMILY AT BEDSIDE. PT UPDATE GIVEN AND QUESTIONS ANSWERED. DENIES NEEDS.
[2016-09-03 22:00] VITALS: BP 160/62
[2016-09-03 23:00] VITALS: BP 155/62
[2016-09-04] VITALS (24 sets, daily range): BP systolic 131–163; BP diastolic 48–78; Ht 182.9 cm; Wt 99.2 kg
[2016-09-04 02:22] LABS: CKMB 1.7 U/L (0.0-3.6); CREATINE KINASE 89 UL (21-232)
[2016-09-04 02:31] LABS: TROPONIN-I 0.272 ng/mL (0.000-0.060)
[2016-09-04 05:02] LABS: BASOPHILS 0.3 % (0-2); EOSINOPHILS 0.7 % (0-7); HEMATOCRIT 27.2 % (42.0-54.0); HEMOGLOBIN 8.5 g/dL (13.5-17.5); IMMATURE GRANULOCYTES 0.1 % (0-5); LYMPHOCYTES 34.8 % (15-50); MCH 25.8 pg (26.0-34.0); MCHC 31.3 g/dL (31.0-37.0); MCV 82.7 fL (80.0-100.0); MEAN PLATELET VOLUME 9.4 fL (7.4-10.4); MONOCYTES 15.1 % (2-11); PLATELET COUNT 191 10x3/uL (130-400); RBC 3.29 10x6/uL (4.20-6.10); RDW 16.8 % (11.5-14.5)
[2016-09-04 05:16] LABS: WBC 7.1 10x3/uL (4.8-10.8)
[2016-09-04 05:30] LABS: ANION GAP 16.2 mmol/L (8-16); BILIRUBIN - TOTAL 0.88 mg/dL (0.2-1.3); CALCIUM 8.2 mg/dL (8.5-10.1); CARBON DIOXIDE 22.3 mmol/L (21.0-32.0); POTASSIUM - SERUM 4.5 mmol/L (3.5-5.1); PROTEIN - SERUM 6.4 g/dL (6.4-8.2)
[2016-09-04 07:59] LABS: CKMB 4.1 U/L (0.0-3.6); CREATINE KINASE 117 UL (21-232)
[2016-09-04 08:05] LABS: TROPONIN-I 0.755 ng/mL (0.000-0.060)
[2016-09-04 18:54] LABS: BASOPHILS 0.4 % (0-2); EOSINOPHILS 0.8 % (0-7); IMMATURE GRANULOCYTES 0.3 % (0-5); LYMPHOCYTES 27.3 % (15-50); MCV 83.8 fL (80.0-100.0); MEAN PLATELET VOLUME 10.1 fL (7.4-10.4); NEUTROPHILS 59.2 % (40-80); PLATELET COUNT 205 10x3/uL (130-400); RBC 3.46 10x6/uL (4.20-6.10); RDW 17.1 % (11.5-14.5); WBC 7.9 10x3/uL (4.8-10.8)
--- NOTE | 2016-09-04 19:00 | NUR ---
PT AOX4, DENIES PAIN AT THIS TIME. RESPIRATIONS NON LABORED AT THIS TIME. LUNG SOUNDS DIMINISHED WITH CRACKLES HEARD TO THE LEFT UPPER LOBE. SPO2 96. S1S2 AUSCULTATED, PERIPHERAL PULSES PRESENT. PEDAL PULSES HEARD VIA DOPPLER. RT GROIN WITH TPM WIRE SITE, SOFT NO S/S OF HEMATOMA. TPM SECURED, DDD 60. LT GROIN WITH DSG CDI, SOFT, NO S/S OF HEMATOMA. LEGS STRAIGHT. ABD DISTENED. BOWEL SOUNDS ACTIVE X4. FLUTTER/COUGH/DB PERFORMED WITH GOOD EFFORT. PARTIAL LINEN CHANGE COMPLETE AT THIS TIME. CALL LIGHT WITHIN PT REACH. DENIES FURTHER NEEDS AT THIS TIME. CPCOC.
[2016-09-04 19:01] LABS: ANION GAP 15.7 mmol/L (8-16); CALCIUM 8.4 mg/dL (8.5-10.1); CARBON DIOXIDE 22.7 mmol/L (21.0-32.0); POTASSIUM - SERUM 4.4 mmol/L (3.5-5.1)
--- NOTE | 2016-09-04 19:22 | NUR ---
0715-AWAKE AND ALERT-R GROIN PACER IN PLACE 100% PACED DDD-O2 4L PATENTED HOGSHEAD ASSEMBLER-SUPIN REQUESTED-LYNETTE GROIN SOFT 1030-DR COLUNGA AT [facility]-NOTED 3 DEGREE BLOCK -RETURNED TO 100%PACED-DDD 0.5/5-RATE OF 60 1130-DR WALKER AT [facility]-SPOKE WITH PT AND 1430-PT APPEARS ASLEEP-RESP REG AND EVEN- 1745-PT C/O DIFFICULTY [id number] UPPER AND LOWER-RT CALLED STAT FOR ABG AND MDI-DR KUMAR NOTIFIED STAT- 1814-LASIX 40MG IVP GIVEN 1844-PORT CXR AND LAB FOR CBC AND SERUM LACTATE DRAWN
--- NOTE | 2016-09-04 23:00 | NUR ---
REASSESSMENT COMPLETE, SEE FLOWSHEET FOR ALL FINDINGS. NO C/O PAIN AT THIS TIME. PACEMAKER SECURED. BILATERAL GROINS SOFT WITH NO EVIDENCE OF HEMATOMA. PEDAL PULSES PRESENT VIA DOPPLER. DENIES NEEDS AT THIS TIME.
[2016-09-05] VITALS (24 sets, daily range): BP systolic 118–170; BP diastolic 42–92
--- NOTE | 2016-09-05 01:00 | NUR ---
PT SLEEPING QUIETLY WITH NON LABORED RESPIRATIONS. VSS, NO S/S OF DISTRESS OR PAIN NOTED AT THIS TIME.
--- NOTE | 2016-09-05 03:00 | NUR ---
REASSESSMENT COMPLETE, SEE FLOWSHEET FOR ALL FINDINGS. PT RESTING QUIETLY WITH NO S/S OF DISTRESS AT THIS TIME. BILATERAL GROINS REMAIN SOFT WITH NO EVIDENCE OF HEMATOMA. TPM SECURED, DDD 60. PERIPHERAL PULSES PRESENT. ORAL CARE ADM AT THIS TIME. PT DENIES FURTHER NEEDS. CPOC.
[2016-09-05 05:36] LABS: BASOPHILS 0.7 % (0-2); EOSINOPHILS 1.4 % (0-7); HEMATOCRIT 29.9 % (42.0-54.0); HEMOGLOBIN 9.4 g/dL (13.5-17.5); IMMATURE GRANULOCYTES 0.1 % (0-5); LYMPHOCYTES 33.4 % (15-50); MCHC 31.4 g/dL (31.0-37.0); MCV 82.6 fL (80.0-100.0); MEAN PLATELET VOLUME 9.8 fL (7.4-10.4); MONOCYTES 15.3 % (2-11); NEUTROPHILS 49.1 % (40-80); PLATELET COUNT 206 10x3/uL (130-400); RBC 3.62 10x6/uL (4.20-6.10)
[2016-09-05 05:55] LABS: ALBUMIN 2.9 g/dL (3.4-5.0); ANION GAP 14.3 mmol/L (8-16); BILIRUBIN - TOTAL 0.98 mg/dL (0.2-1.3); CALCIUM 8.5 mg/dL (8.5-10.1); CREATININE - SERUM 1.7 mg/dL (0.6-1.3); POTASSIUM - SERUM 4.3 mmol/L (3.5-5.1); PROTEIN - SERUM 6.5 g/dL (6.4-8.2)
[2016-09-05 13:18] LABS: APPEARANCE CLEAR (CLEAR); BILIRUBIN NEGATIVE (NEGATIVE); COLOR YELLOW (YELLOW); GLUCOSE 250 mg/dL (NEGATIVE); KETONE NEGATIVE (NEGATIVE); LEUKOCYTE ESTERASE NEGATIVE (NEGATIVE); NITRITE NEGATIVE (NEGATIVE); PH 5.5 (5.0-6.0); PROTEIN 2+ mg/dL (NEGATIVE); SPECIFIC GRAVITY 1.015 (1.005-1.020)
[2016-09-05 13:19] LABS: BACTERIA MODERATE /hpf (NONE SEEN); EPITHELIAL CELLS 0-5 /hpf (0-5); RED CELLS - URINE OCC /hpf (0-5); WHITE CELLS - URINE NSEEN /hpf (0-5)
--- NOTE | 2016-09-05 19:00 | NUR ---
REPORT RECEIVED AND ASSESSMENT COMPLETED SEE FLOWSHEET FOR FULL DETAILS. PT WAS A RAPID RESPONSE FROM THE FLOOR. WITH DIFFICULTY BREATHING. SENT TO [facility] RECEIVABLE SPECIALIST FOR RCA STENT PLACEMENT. ENTRANCE WAS THROUGH THE LEFT GROIN DRESSING IS CDI. NO SIGNS OF HEMATOMA. RIGHT GROIN HAS A TPM VVI AT A RATE OF 80 VMA OF 10. PT IS 100% PACED AT THIS TIME. PT HAD 3RD DEGREE BLOCK PRIOR TO CATH PROCEDURE. PT IS ON 4L NC AT THIS TIME WITH A SAT OF 99%. SCHEDULED FOR PERMANENT PACEMAKER PLACEMENT BY DR WALKER IN AM. CONSENTS HAVE BEEN SIGNED. WILL MONITOR FOR COMPLICATIONS THROUGHOUT SHIFT. VSS.
--- NOTE | 2016-09-05 21:00 | NUR ---
2100 MEDS GIVEN NO OTHER CHANGES IN STATUS AT THIS TIME. VSS. WILL CONTINUE TO MONITOR
--- NOTE | 2016-09-05 23:00 | NUR ---
REASSESSMENT COMPLETED SEE FLOWSHEET FOR FULL DETAILS. PT HAD ONE VOID IN URINAL. 550 OUT. NO OTHER CHANGES AT THIS TIME. WILL CONTINUE TO MONITOR
[2016-09-06] VITALS (20 sets, daily range): BP systolic 110–187; BP diastolic 60–81
--- NOTE | 2016-09-06 01:00 | NUR ---
no changes in status at this time. vss. will continue to monitor.
--- NOTE | 2016-09-06 03:00 | NUR ---
REASSESSMENT COMPLETED SEE FLOWSHEET FOR FULL DETAILS. LEFT FOREARM IV INFILTRATED. NEW IV PLACED. NO OTHER CHANGES AT THIS TIME
[2016-09-06 04:06] LABS: BASOPHILS 0.1 % (0-2); EOSINOPHILS 0 % (0-7); HEMATOCRIT 31.7 % (42.0-54.0); HEMOGLOBIN 9.9 g/dL (13.5-17.5); IMMATURE GRANULOCYTES 0.2 % (0-5); LYMPHOCYTES 12.5 % (15-50); MCHC 31.2 g/dL (31.0-37.0); MCV 83.2 fL (80.0-100.0); MEAN PLATELET VOLUME 9.9 fL (7.4-10.4); NEUTROPHILS 84.2 % (40-80); PLATELET COUNT 221 10x3/uL (130-400); RBC 3.81 10x6/uL (4.20-6.10); RDW 16.8 % (11.5-14.5)
[2016-09-06 04:08] LABS: WBC 11.2 10x3/uL (4.8-10.8)
[2016-09-06 04:14] LABS: APTT 29.5 SECONDS (22.8-39.4); INR 1.24 (0.85-1.17); PROTIME 15.5 SECONDS (11.6-15.0)
--- NOTE | 2016-09-06 05:31 | NUR ---
SURGICAL PREP BATH GIVEN AT THIS TIME. LAB REDRAWN AND SUBMITTED. NO OTHER CHANGES. WILL CONTINUE TO MONITOR.
--- NOTE | 2016-09-06 06:31 | NUR ---
LABS REDRAWN AGAIN DUE TO TUBE SYSTEM BEING DOWN. AWAITING RESULTS
[2016-09-06 06:49] LABS: ANION GAP 15.7 mmol/L (8-16); BILIRUBIN - TOTAL 0.7 mg/dL (0.2-1.3); CALCIUM 8.7 mg/dL (8.5-10.1); CARBON DIOXIDE 25.6 mmol/L (21.0-32.0); CREATININE - SERUM 1.6 mg/dL (0.6-1.3); POTASSIUM - SERUM 4.3 mmol/L (3.5-5.1)
--- NOTE | 2016-09-06 07:15 | NUR ---
REPORT RECIEVED FROM POCKET ASSEMBLER NURSE. CARE ASSUMED.
--- NOTE | 2016-09-06 08:30 | NUR ---
TAKEN TO OR FOR PACEMAKER PLACEMENT. ANETHESIA AT BEDSIDE ALONG WITH OR NURSE FOR TRANSFER.
--- NOTE | 2016-09-06 10:13 | NUR ---
NUTRITION MONITORING & EVAL CHART REVIEWED. PT CURRENTLY NPO FOR PROCEDURE. WILL PROVIDE DIET WHEN RESUMED, MONITOR PO INTAKE. RD FOLLOWING
--- NOTE | 2016-09-06 10:42 | NUR ---
RECIEVED PT BACK FROM OR. VSS AT THIS TIME. SLING NOTED TO LEFT ARM AND DRESSING C/D/I TO LEFT CHEST. CALL LIGHT IN REACH. WILL CONT TO ASSESS.
--- NOTE | 2016-09-06 10:57 | NUR ---
* Is the patient Alert and Oriented? Yes 0 * How many steps to enter\exit or inside your home? 0 0 * PCP Dr. Griffin 0 * Pharmacy [facility] 0 * Preadmission Environment Home with Family 0 * ADLs Partial Dependent 0 * Partial ADLs (Assistance needed) Ambulation 0 * Equipment Bedside Commode Cane Glucometer Rolling Walker 0 * List name and contact numbers for known caregivers / representatives who currently or will assist patient after discharge: Spouse - Arlyn [phone] 0 * Additional services required to return to the preadmission environment? Yes 0 * Can the patient safely return to the preadmission environment? Yes 0 * Has this patient been hospitalized within the prior 30 days at any hospital? No Patient Name: KAMRAN XAVIER Admission Status: Elective Accout number: [id number] Admission Date: 09-03-2016 : 1940 Admission Diagnosis: Attending: STACY Current LOS: 3 Anticipated DC Date: 09-07-2016 Planned Disposition: Home Primary Insurance: MEDICARE A & B Discharge Planning Comments: CM met with patient & spouse at bedside to assess dc plans/needs. Patient lives at home with his . He has been going to outpatient physical therapy at [facility] since his hip surgery in June. He has a walker, cane, & BSC at home. At dc, he plans to return home and resume his outpatient therapy when cleared by cardiology. Anticipate dc tomorrow. CM will follow. Research Program Internship: Chely Childress
--- NOTE | 2016-09-06 11:30 | NUR ---
PT ASSISTED UP TO CHAIR. TOLERATED WELL. CONTINUED TO REMIND PT TO KEEP LEFT ARM STILL POSSIBLE. FAMILY AT BEDSIDE. PT MORE COOPERATIVE AND FOLLOWING DIRECTION BETTER. WILL CONTINUE TO MONITOR.
--- NOTE | 2016-09-06 13:30 | NUR ---
PT SITTING IN CHAIR. NO NEEDS AT THIS TIME. VSS.
--- NOTE | 2016-09-06 15:45 | NUR ---
PT AMBULATED TO RESTROOM. STEADY GAIT NOTED.
--- NOTE | 2016-09-06 16:15 | NUR ---
REPORT CALLED TO GILA ELLER ON MED 2. WILL TRANSFER PT VIA W/C.
--- NOTE | 2016-09-06 17:35 | NUR ---
CALLED DR. WITT REGARDING PT BECOMING HYPERTENSIVE. BP 182/74. ORDERS RECEIVED FOR [facility].
--- NOTE | 2016-09-06 19:00 | NUR ---
REPORT RECIEVED AND ASSESSMENT COMPLETED. SEE FLOWSHEET FOR FULL DETAILS. PT HAD PACEMAKER PLACED THIS AM BY DR WALKER. CURRENTLY 100% PACED. B/P IS ELEVATED IN THE 190'S SYSTOLIC. PT HAS BEEN GIVEN A ONE TIME DOSE OF NORVASC PER DR WITT.
--- NOTE | 2016-09-06 21:00 | NUR ---
2100 MEDS GIVEN. CATAPRES 0.1MG GIVEN PER DR WITT. WILL CONTINUE TO MONITOR CLOSELY. VSS.
--- NOTE | 2016-09-07 01:17 | NUR ---
TRANSFER FROM CVICU TO ROOM 2124. PT ASSISTED UP AND INTO BED. ASSESSED AND PT NOW RESTING IN BED WITH CALL LIGHT IN REACH. BEDSIDE REPORT PER RIB CUTTER RECIEVED. ALL HS MEDS HAVE BEEN GIVEN. PT READY TO TURN IN FOR THE NIGHT. MONITOR AND CPOC.
--- NOTE | 2016-09-07 05:01 | NUR ---
PT RESTING WITH NO DISTRESS. ALERT/ORIENTED. NO NEEDS VOICED. MONITOR AND CPOC.
[2016-09-07 05:29] LABS: BASOPHILS 0.1 % (0-2); EOSINOPHILS 0.1 % (0-7); HEMATOCRIT 30.6 % (42.0-54.0); HEMOGLOBIN 9.5 g/dL (13.5-17.5); IMMATURE GRANULOCYTES 0.3 % (0-5); LYMPHOCYTES 19.8 % (15-50); MCV 83.6 fL (80.0-100.0); MEAN PLATELET VOLUME 9.5 fL (7.4-10.4); MONOCYTES 10.2 % (2-11); NEUTROPHILS 69.5 % (40-80); PLATELET COUNT 231 10x3/uL (130-400); RBC 3.66 10x6/uL (4.20-6.10); RDW 16.7 % (11.5-14.5); WBC 11.8 10x3/uL (4.8-10.8)
[2016-09-07 05:50] LABS: ALBUMIN 2.9 g/dL (3.4-5.0); ANION GAP 15.9 mmol/L (8-16); BILIRUBIN - TOTAL 0.5 mg/dL (0.2-1.3); CALCIUM 8.6 mg/dL (8.5-10.1); CREATININE - SERUM 1.4 mg/dL (0.6-1.3); POTASSIUM - SERUM 3.9 mmol/L (3.5-5.1); PROTEIN - SERUM 6.5 g/dL (6.4-8.2)
[2016-09-07 05:56] VITALS: BP 141/65
--- NOTE | 2016-09-07 07:58 | NUR ---
RESTING QUIETLY RESP UNLABORED NAD NOTED
[2016-09-07 08:00] VITALS: BP 202/79
--- NOTE | 2016-09-07 10:22 | NUR ---
ASSESSMENT COMPLETED. TELEMERTY SHOWS SR WITH PACED BEATS. PACER SITE TO LEFT UPPER CHEST WITH DRSG DRY AND INTACT. LEFT ARM IN SLING. DENIES ANY NEEDS. SR UP WITH CALL LIGHT IN REACH
[2016-09-07] MEDS ORDERED: METOPROLOL TART50 MG PO (11:25)
[2016-09-07] MEDS ORDERED: PROAIR HFA8.5 GM INH (11:27)
[2016-09-07 11:55] VITALS: BP 168/61
[2016-09-07] MEDS ORDERED: PLAVIX75 MG PO (12:13)
--- NOTE | 2016-09-07 13:59 | NUR ---
PT DISCHARGED. IV DCD WITH TIP INTACK. DISCARGE INSTRUCTIONS GIVEN TO PT AND . TO PRIVATE CAR PER WHEELCHAIR
--- NOTE | 2016-09-08 13:54 | CN ---
PATIENT NAME:KAMRAN XAVIER MEDICAL RECORD: [id number] : 38 LOCATION:D. D.2125 ADMIT DATE: 09/03/16 ACCOUNT: [id number] CONSULTING PHYSICIAN: BRANDIN COLUNGA MD REFERRING PHYSICIAN: YOLANDA KUMAR MD DATE OF CONSULTATION: 09/03/2016 DIAGNOSES: 1. Unstable angina. 2. Coronary artery disease. 3. Third-degree heart block. 4. Bradycardia. 5. Previous percutaneous transluminal coronary angioplasty stent. 6. Hyperlipidemia. 7. Gastroesophageal reflux disease. 8. Toj-fudweqg-jpukhqefz diabetes. HISTORY OF PRESENT ILLNESS: This is a gentleman, who presents with shortness of breath and chest pain. He has past history of coronary artery disease. He is well was found to have new ivvql-cs-oqxbxcc renal insufficiency as well. Initially, we placed him on dobutamine to treat the third-degree heart block. He was not hypotensive with this. His heart rate has not increased. His chest pain has worsened dramatically. He does have a past history of coronary artery disease, previous cardiac stenting multiple years ago. His creatinine is 2.4 with a BUN of 39. Chest x-ray is compatible with pulmonary edema, congestive heart failure; however, echocardiogram reveals an ejection fraction in the 55% range, only mild mitral regurgitation. He is anemic with a hemoglobin of 9.7. OVERALL IMPRESSION: Worsening angina, unstable fashion. We will proceed with coronary angiography with minimal contrast use, discontinuing inotropic support, we will also use temporary pacemaker. Most likely, he will need permanent pacemaker. TRANSINT:[id number] Voice Confirmation ID: [id number] DOCUMENT ID: [id number] BRANDIN COLUNGA MD at 1354 CC: [id number] DICTATION DATE: 09/03/16 174 COUNTRY PRINTER: 09/03/16 2154 DIS IN 09/07/16 [place] [id number] [place] [id number]
--- NOTE | 2016-09-08 13:54 | OP ---
PATIENT NAME: KAMRAN XAVIER MEDICAL RECORD: [id number] :38 LOCATION:D.M2 D.2125 ADMISSION DATE:09/03/16 SURGEON: BRANDIN COLUNGA MD OPERATION DATE: 09/03/16 DATE OF OPERATION: 09/03/2016 PROCEDURES: 1. PTCA stent RCA. 2. PTCA stent in left circumflex. 3. Left heart catheterization. 4. Selective coronary angiography. 5. Vein graft angiography. 6. SYKES angiography. 7. Stent placement, iliac, left. 8. BRUSH HAND iliac, left. 9. Bilateral iliac angiography. 10. Temporary pacemaker. PROCEDURE IN DETAIL: After informed consent was obtained and after detailed explanation of risks, benefits as well as alternative therapies, the patient elected to proceed with angiogram and angioplasty. The right femoral area was prepped and draped in normal sterile fashion. The right femoral artery was cannulated via modified Seldinger technique with placement of 6-Somali sheath. The right iliac was totally occluded, which turned our attention to the left iliac. This was prepped and draped in normal sterile fashion. The left femoral artery was cannulated via modified Seldinger technique with placement of 6-Somali iliac sheath. The right femoral vein was cannulated via modified Seldinger technique with placement of 6-Somali sheath. Temporary pacemaker was advanced into the RV apex. Temporary pacing was undertaken. FINDINGS: The right iliac was totally occluded as mentioned above. The left iliac had 95% stenosis. This was addressed with a 7 x 29 Cordis Renetta stent. Post-stent dilatation made with an 8.0 balloon. Result was 0% residual stenosis. SELECTIVE CORONARY ANGIOGRAPHY: 1. Left main showed no significant angiographic disease. 2. Left anterior descending is totally occluded. 3. SYKES to the LAD is widely patent. 4. Left circumflex has a closed graft. The circumflex has 90% stenosis times 2 in the proximal vessel. This is a large dominant vessel. 5. The right coronary is a moderate sized vessel; however feeds what appears to be the AV amanda branch and due to the third-degree heart block the 90% stenosis of the RCA is significant. PTCA STENT OF THE RCA: The stent used 2.25 x 14 mm [place]. Result was 0% residual stenosis throughout. PTCA STENT OF THE LEFT CIRCUMFLEX: The stent used covering both areas of stenosis was 3.5 x 26 mm Matthew. Result was 0% residual throughout. No angiographic evidence of dissection or thrombus. OVERALL IMPRESSION: Successful percutaneous transluminal coronary angioplasty stent right coronary artery and left circumflex, both going from 90% stenosis to OPERATIVE REPORT [id number] KAMRAN XAVIER 0% residual stenosis. TRANSINT:[id number] Voice Confirmation ID: [id number] DOCUMENT ID: [id number] BRANDIN COLUNGA MD at 1354 CC: [id number] DICTATION DATE: 09/03/161827 PNEUMATIC TOOL OPERATOR: 09/03/16 2344 DIS IN 09/07/16 [place] [id number] [place] [address]
--- NOTE | 2016-09-08 13:54 | EC ---
PATIENT:KAMRAN XAVIER DATE OF SERVICE: 09/03/16 SEX: M MEDICAL RECORD: [id number] DATE OF : 38 LOCATION:D.M2 D.212 AGE OF PATIENT: 75 ADMISSION DATE: 09/03/16 REFERRING PHYSICIAN: INTERPRETING PHYSICIAN: BRANDIN FRANCO MD ECHOCARDIOGRAM REPORT ECHO CHARGES 4 ECHO COMPLETE CLINICAL DIAGNOSIS: SOB/BRADYCARIDA/CARDIOMEGALY/N IDDM HX OF CAD/CABG ECHOCARDIOGRAPHIC MEASUREMENTS (adult normal given) AC root (d.<3.7cm) 3.9 cm LV Septum d (<1.2 cm> 1.5 cm Valve Excursion 1.1 cm LV Septum (systole) 1.9 cm Left Atria (s.<4.0cm> 3.9 cm LVPW d(<1.2cm) 1.4 cm RV (d.<2.3cm) 4.0 cm LVPW (sytole) 1.9 cm LV diastole(<5.6CM) 5.6 cm MV E-F(>70mm/sec) cm LV systole 3.3 cm LVOT Diameter 1.5 cm MV exc.(>10mm) 1.1 cm Est.ejection fraction (50-75%) % Pericardial Effusion N DOPPLER: LVIT cm/sec A 85.0 cm/sec E 153 cm/sec LA cm/sec RVSP 33 mmHg LVOT 161 cm/sec AOP1/2T m/s Asc. Ao 222 cm/sec RVOT 93 cm/sec RA cm/sec PA 168 cm/sec AV Gradient Peak 19.64mmHg AV Mean 11.92mmHg AV Area 1.2 cm MV Gradient Peak 10.54mmHg MV Mean 3.22 mmHg MV Area cm COMMENTS: Lockstitch Sleeve Maker: Margaret SOLIS Cleaner Wall: 1 Dr. Franco TAPE# PACS DATE OF SERVICE: 09/03/2016 Echocardiogram FINDINGS: 1. Left ventricle chamber size is within normal limits. Left ventricular systolic function is normal. Overall ejection fraction estimated at 55%. 2. Left atrium is within normal limits at 3.9 cm. Right atrium and right ventricle chamber size is moderately dilated. 3. Valvular structures: Aortic valve demonstrates mild calcific aortic ECHOCARDIOGRAM REPORT [id number] KAMRAN XAVIER stenosis. Valve area calculates to 1.2 cm-squared and there is gradient of 19 mm across the valve. The remaining valvular structures have normal structure and motion. 4. Doppler interrogation elsewise reveals mild mitral regurgitation, mild tricuspid regurgitation, no other valvular insufficiency or stenosis. Pulmonary systolic pressure is normal at 33 mmHg. 5. No evidence of pericardial effusion or left ventricular thrombus. TRANSINT:[id number] Voice Confirmation ID: [id number] DOCUMENT ID: [id number] BRANDIN FRANCO MD at 1354 CC: [id number] DICTATION DATE: 09/03/161743 BOILERMAKER'S ASSISTANT: 09/03/162240 DIS IN 09/07/16 [facility] [address] [place] [address]
--- NOTE | 2016-09-11 11:34 | OP ---
PATIENT NAME: KAMRAN XAVIER MEDICAL RECORD: [id number] :38 LOCATION:D. D.2125 ADMISSION DATE:09/03/16 SURGEON: ADEBAYO BETANCOURT MD DATE OF OPERATION: 09/06/2016 SURGEON: Adebayo Betancourt MD ANESTHESIA: General, Dr. Peña. OPERATION PERFORMED: Insertion of dual chamber pacing system. PREOPERATIVE DIAGNOSIS: Complete heart block. POSTOPERATIVE DIAGNOSIS: Complete heart block. INDICATION FOR OPERATION: Complete heart block, profound bradycardia. FINDINGS OF THE OPERATION: The pulse generator Medtronic Adapta ADDR01, serial number [id number]. Atrial lead medtronic model number 5568-53, serial number [id number]. Ventricular lead Medtronic model number 4074-58, serial number [id number]. Fluoroscopy time was 2 minutes 19 seconds. LEAD ANALYSIS: Atrial lead threshold 0.8 volts, current lead threshold 0.1 milliamps, resistance 602 ohms, P-wave 4.4, ventricular lead threshold 0.3 volts, current lead threshold 0.1 milliamps, resistance 1289 ohms. R-wave 12.3, slew rate 3.6. ESTIMATED BLOOD LOSS: Less than 5 cc. DESCRIPTION OF PROCEDURE: After informed consent, adequate preoperative medication evaluation, the patient was brought to the operating room, placed on the table in the supine position. After induction of general endotracheal anesthesia and application of appropriate monitoring devices, the left chest prepped and draped in a sterile field, utilizing Betadine scrub, alcohol, and Betadine solution. A Betadine-impregnated drape was also used, 1% lidocaine was infiltrated in the infraclavicular space. Incision made and dissection carried down the fascia. A pacemaker pocket was formed. Subclavian vein was cannulated with the introducers, leads placed in the heart. The above electrophysiologic study was done. Therefore, to be in good position, the leads were secured. The leads were then connected to the pulse generator and pacemaker placed in the pocket. Pacemaker fired, captured and sensed appropriately. Pocket was irrigated. Instrument count and sponge count were correct times 2. Pocket was closed in layers utilizing 3-0 Vicryl on deep subcutaneous tissue, 5-0 subcuticular Monocryl on the skin. Sterile dressings were applied. The patient tolerated the procedure well and was transferred to the CV ICU in satisfactory condition. TRANSINT:[id number] Voice Confirmation ID: [id number] DOCUMENT ID: [id number] OPERATIVE REPORT [id number] KAMRAN XAVIER EDWARD MD at 1134 CC: [id number] DICTATION DATE: 09/06/16 1021 CERTIFIER: 09/06/16 1154 DIS IN 09/07/16 [place] [id number] [place] [id number]
== END 2016-09-07 14:03 | disposition home or self-care (01) | DRG 242 ==
LOC: D.CVICU 12:05 → D.M2 12:05 → D.CVICU 17:25 → D.M2 09-07 00:50
PROVIDERS: Family Medicine; Internal Medicine Cardiovascular Disease; Internal Medicine Interventional Cardiology; ADMIT Family Medicine
PROC: 4A023N7 Measurement of Cardiac Sampling and Pressure, Left Heart, Percutaneous Approach (ICD-10-PCS; 2016-09-03)
PROC: 047C3ZZ Dilation of Right Common Iliac Artery, Percutaneous Approach (ICD-10-PCS; 2016-09-03)
PROC: B2181ZZ Fluoroscopy of Left Internal Mammary Bypass Graft using Low Osmolar Contrast (ICD-10-PCS; 2016-09-03)
PROC: B2111ZZ Fluoroscopy of Multiple Coronary Arteries using Low Osmolar Contrast (ICD-10-PCS; 2016-09-03)
PROC: B2151ZZ Fluoroscopy of Left Heart using Low Osmolar Contrast (ICD-10-PCS; 2016-09-03)
PROC: 5A1223Z Performance of Cardiac Pacing, Continuous (ICD-10-PCS; 2016-09-03)
PROC: 027135Z Dilation of Coronary Artery, Two Arteries with Two Drug-eluting Intraluminal Devices, Percutaneous Approach (ICD-10-PCS; 2016-09-03 17:15)
PROC: 02H63JZ Insertion of Pacemaker Lead into Right Atrium, Percutaneous Approach (ICD-10-PCS; 2016-09-06)
PROC: 02HK3JZ Insertion of Pacemaker Lead into Right Ventricle, Percutaneous Approach (ICD-10-PCS; 2016-09-06)
PROC: 047D3DZ Dilation of Left Common Iliac Artery with Intraluminal Device, Percutaneous Approach (ICD-10-PCS; 2016-09-06)
PROC: 0JH606Z Insertion of Pacemaker, Dual Chamber into Chest Subcutaneous Tissue and Fascia, Open Approach (ICD-10-PCS; principal; 2016-09-06 07:30)
DX: I44.2 Atrioventricular block, complete (principal); I50.21 Acute systolic (congestive) heart failure; I25.110 Atherosclerotic heart disease of native coronary artery with unstable angina pectoris; I13.0 Hypertensive heart and chronic kidney disease with heart failure and stage 1 through stage 4 chronic kidney disease, or unspecified chronic kidney disease; N17.9 Acute kidney failure, unspecified; D62 Acute posthemorrhagic anemia; J44.1 Chronic obstructive pulmonary disease with (acute) exacerbation; N18.3 Chronic kidney disease, stage 3 (moderate); E11.22 Type 2 diabetes mellitus with diabetic chronic kidney disease; E11.65 Type 2 diabetes mellitus with hyperglycemia; Z79.4 Long term (current) use of insulin; E11.40 Type 2 diabetes mellitus with diabetic neuropathy, unspecified; E78.5 Hyperlipidemia, unspecified; E87.5 Hyperkalemia; I70.202 Unspecified atherosclerosis of native arteries of extremities, left leg; K21.9 Gastro-esophageal reflux disease without esophagitis; Z95.1 Presence of aortocoronary bypass graft; Z95.5 Presence of coronary angioplasty implant and graft; Z87.891 Personal history of nicotine dependence

== ENCOUNTER → 2016-12-02 08:09 | Outpatient (CLI) | payer MEDICARE, OTHER ==
[2016-09-04 12:28] VITALS: BMI 30.9
[~2016-12-02 08:09] MED LIST changes: +HYDROCODONE-APA1 TAB PO; +K-TAB10 MEQ PO; +METOPROLOL TART50 MG PO; +NIACIN100 MG PO; +OMEPRAZOLE40 MG PO; +PLAVIX75 MG PO; +PROAIR HFA8.5 GM INH
== END | disposition home or self-care (01) ==
LOC: D.NM 08:09
DX: M25.561 Pain in right knee (principal)

== ENCOUNTER → 2016-12-09 09:41 | Outpatient (CLI) | payer MEDICARE, OTHER ==
[2016-09-04 12:28] VITALS: BMI 30.9
== END | disposition home or self-care (01) ==
LOC: D.LABREF 09:41
DX: M25.561 Pain in right knee (principal); Z11.8 Encounter for screening for other infectious and parasitic diseases

== ENCOUNTER 2016-12-22 10:00 | Inpatient (IN) | payer MEDICARE, OTHER ==
[~2016-12-22] VITALS: Ht 182.9 cm; Wt 95.7 kg
[2016-12-22 09:24] LABS: BASOPHILS 0.6 % (0-2); EOSINOPHILS 2.4 % (0-7); HEMATOCRIT 33.7 % (42.0-54.0); HEMOGLOBIN 10.2 g/dL (13.5-17.5); IMMATURE GRANULOCYTES 0.1 % (0-5); LYMPHOCYTES 34.6 % (15-50); MCH 24.5 pg (26.0-34.0); MCHC 30.3 g/dL (31.0-37.0); MEAN PLATELET VOLUME 9.2 fL (7.4-10.4); MONOCYTES 9.6 % (2-11); NEUTROPHILS 52.7 % (40-80); PLATELET COUNT 213 10x3/uL (130-400); RBC 4.16 10x6/uL (4.20-6.10); RDW 16.6 % (11.5-14.5); WBC 6.7 10x3/uL (4.8-10.8)
[2016-12-22 09:32] LABS: ANION GAP 13.5 mmol/L (8-16); CALCIUM 8.9 mg/dL (8.5-10.1); CARBON DIOXIDE 26.3 mmol/L (21.0-32.0); CREATININE - SERUM 1.3 mg/dL (0.6-1.3); POTASSIUM - SERUM 4.8 mmol/L (3.5-5.1)
[2016-12-22 09:35] LABS: APTT 27.7 SECONDS (22.8-39.4); INR 1.1 (0.85-1.17); PROTIME 14.1 SECONDS (11.6-15.0)
[~2016-12-22 10:00] MED LIST changes: -HYDROCODONE-APA1 TAB PO
[2016-12-24 14:38] LABS: APPEARANCE CLEAR (CLEAR); BILIRUBIN NEGATIVE (NEGATIVE); COLOR YELLOW (YELLOW); GLUCOSE 1000 mg/dL (NEGATIVE); KETONE NEGATIVE (NEGATIVE); NITRITE NEGATIVE (NEGATIVE); PROTEIN NEGATIVE (NEGATIVE); SPECIFIC GRAVITY 1.015 (1.005-1.020); UROBILINOGEN NORMAL (NORMAL)
[2016-12-27] MEDS ORDERED: COZAAR50 MG PO (11:46)
[2016-12-27 12:10] VITALS: BP 161/65; BMI 28.7
--- NOTE | 2016-12-27 14:50 | NUR ---
BLOOD SUGAR IS 138 AT THIS TIME.
--- NOTE | 2016-12-27 15:20 | NUR ---
RECEIVED TO ROOM 2212 FROM RECOVERY ROOM VIA BED. VSS. DRESSING TO RIGHT KNEE C/D/I. ICEPACK APPLIED TO R KNEE. AT BEDSIDE.
[2016-12-27 15:21] VITALS: BP 147/59
[2016-12-27 15:29] VITALS: BP 147/59; BMI 28.7
--- NOTE | 2016-12-27 17:00 | NUR ---
DENIES ANY NEEDS AT THIS TIME.
--- NOTE | 2016-12-27 18:31 | NUR ---
DENIES ANY COMPLAINT OF PAIN AT THIS TIME. CPM IN USE.
--- NOTE | 2016-12-27 19:20 | NUR ---
RECIEVED SHIFT REPORT. PT IS LYING IN BED. ALERT AND ORIENTED AND ABLE TO VERBALIZE NEEDS. IV IS PATENT AND FLUIDS ARE RUNNING PER ORDER. SCD'S ON. CPM ON. DRESSING TO RIGHT KNEE C/D/I. PT STATES PAIN IS 10/10. NO NEEDS ARE VERBALIZED AT THIS TIME. WILL CONTINUE TO MONITOR. SIDE RAILS ARE UP X 2. BED IS IN LOWEST POSITION. BED ALARM IS ON FOR SAFETY. CALL LIGHT IS WITHIN REACH.
[2016-12-27 20:00] VITALS: BP 169/59
--- NOTE | 2016-12-27 20:58 | NUR ---
SHIFT ASSESSMENT COMPLETED. NIGHT MEDS GIVEN WITH NO PROBLEMS. PT C/O PAIN 03/26. ADMINISTERED PRESCRIBED PRN NORCO PER ORDER. DENIES FURTHER NEEDS. WILL MONITOR. SIDE RAILS X 2. BED LOW. BED ALARM ON. CALL LIGHT IN REACH.
[2016-12-28 04:00] VITALS: BP 169/56
[2016-12-28 06:15] LABS: HEMATOCRIT 27.8 % (42.0-54.0); HEMOGLOBIN 8.6 g/dL (13.5-17.5); MCH 24.6 pg (26.0-34.0); MCHC 30.9 g/dL (31.0-37.0); MCV 79.7 fL (80.0-100.0); MEAN PLATELET VOLUME 9.1 fL (7.4-10.4); RBC 3.49 10x6/uL (4.20-6.10); WBC 8.8 10x3/uL (4.8-10.8)
--- NOTE | 2016-12-28 07:21 | NUR ---
ENTERED ROOM. IV DRIPPING BLOOD ALL OVER FLOOR. HAD BECOME DISCONNECTED-FLUSHED AND RECONNECTED. RIGHT LEG CURRENTLY IN CPM MACHINE AND MOVING. STATES NO PAIN AT PRESENT. ABLE TO WIGGLE TOES RIGHT FOOT-WARM AND PINK. ARTEM WRAP CLEAN AND DRY. CONFUSED TO PLACE AND TIME. CALL LIGHT IN REACH. BED ALARM ON FOR SAFETY.
[2016-12-28 08:20] VITALS: BP 146/69
[2016-12-28 11:37] VITALS: BP 163/65
[2016-12-28 12:46] VITALS: Ht 182.9 cm; Wt 95.7 kg
--- NOTE | 2016-12-28 13:46 | NUR ---
PT UP WITH THERAPY TO AMBULATE WITH ROLLING WALKEER AND PLACED BACK TO BED PAIN MANAGED AT THIS TIME.
--- NOTE | 2016-12-28 15:15 | NUR ---
PT RESTING IN BED WITH EYES CLOSED NO DISTRESS NOTED PAIN MANAGED
[2016-12-28 16:00] VITALS: BP 194/73
[2016-12-28 20:00] VITALS: BP 171/65
--- NOTE | 2016-12-28 20:50 | NUR ---
PATIENT RESTING IN BED AND DENIES NEEDS AT THIS TIME. ADMINISTERED MEDS PER ORDERS. BED IN LOWEST POSITION AND CALL LIGHT WITHIN REACH. ENCOURAGED THE PATIENT TO CALL IF HE HAS NEEDS.
[2016-12-29] VITALS: BP 183/71
[2016-12-29 04:00] VITALS: BP 190/72
[2016-12-29 06:00] LABS: HEMATOCRIT 27.7 % (42.0-54.0); HEMOGLOBIN 8.7 g/dL (13.5-17.5); MCH 24.6 pg (26.0-34.0); MCHC 31.4 g/dL (31.0-37.0); MCV 78.5 fL (80.0-100.0); RBC 3.53 10x6/uL (4.20-6.10)
--- NOTE | 2016-12-29 07:50 | NUR ---
ASSESSMENT COMPLETE. IV TO L HAND PATENT. DRESSING TO R KNEE C/D/I. SCD IN USE TO L LEG. BED ALARM IN USE. CPM IN USE TO R KNEE. DENIES ANY NEEDS AT THIS TIME.
[2016-12-29 08:09] VITALS: BP 166/64
--- NOTE | 2016-12-29 10:00 | NUR ---
SITTING UP IN CHAIR. AT BEDSIDE. DENIES ANY NEEDS AT THIS TIME.
--- NOTE | 2016-12-29 12:45 | NUR ---
VOMITED AFTER STARTING TO EAT LUNCH. REFUSING TO TAKE ANY ZOFRAN. STATES "IT'S GONE AWAY. WHAT I NEED IS A BM." REPORTS NOT HAVING BM FOR 4 DAYS. ASSISTED UP TO BATHROOM WITH WALKER. AT BEDSIDE.
[2016-12-29 12:51] VITALS: BP 174/73
--- NOTE | 2016-12-29 13:30 | NUR ---
Patient Name: KAMRAN XAVIER Admission Status: Elective Accout number: [id number] Admission Date: 12-27-2016 : 1938 Admission Diagnosis:PAIN DUE TO INTERNAL ORTHOPEDIC PROSTH DEV/ARMANDO, INWILLA Attending: ARMANDO HOUSTON Current LOS: 2 Anticipated DC Date: Planned Disposition: Home Primary Insurance: MEDICARE A & B Discharge Planning Comments: CM met with patient with to assess discharge planning needs. Patient lives independently with his where he plans to return. His Arlyn will be the one to drive him home at discharge. Patient would like to use [facility] for op pt. Patient has a walker, bed side commode and shower chair at home. There is one step to enter in his home. CM will continue to follow and assist with discharge planning needs. PCP: Stacy Bell on [address] () [phone] Cardiopulmonary Specialist: Jennifer London * Is the patient Alert and Oriented? Yes 0 * How many steps to enter\exit or inside your home? 1 0 * PCP STACY 0 * Pharmacy [facility] [address] * Preadmission Environment Home with Family 0 * ADLs Independent 0 * Equipment Bedside Commode Shower Chair Walker 0 * List name and contact numbers for known caregivers / representatives who currently or will assist patient after discharge: ARLYN () [phone] 0 * Additional services required to return to the preadmission environment? Yes 0 * Can the patient safely return to the preadmission environment? Yes 0 * Has this patient been hospitalized within the prior 30 days at any hospital? No 0 Grand Total: 0
--- NOTE | 2016-12-29 13:49 | NUR ---
Cm set patient up with OP PT for Tuesday at 4:00pm for initial assessment with Jerrod at [facility]
[2016-12-29 15:36] VITALS: BP 113/71
--- NOTE | 2016-12-29 16:00 | NUR ---
NO CHANGES NOTED AT PRESENT. DOESN'T WANT TO EAT DINNER. STATES HE FEELS TO FULL TO EAT BUT REFUSING TO TAKE LAXATIVES.
[2016-12-29 20:00] VITALS: BP 177/68
--- NOTE | 2016-12-29 21:57 | NUR ---
REC'D LYING IN BED. ALERT AND ORIENTED X4. REPORTED PAIN 4/10. CPM MACHINE IS ON RIGHT LEG, IS TO COME OFF AT 2049. NO DISTRESS NOTED. INSTRUCTED TO CALL IF NEEDED ANYTHING, VERBALIZED UNDERSTANDING. BED LOW, LOCKED, CALL LIGHT IN REACH, ALARM ON. WILL CONT TO MONITOR.
--- NOTE | 2016-12-30 02:00 | NUR ---
PT IN BED WITH NO DISTRESS. RESPIRATIONS EVEN AND UNLABORED. SIDE RAILS X 2. BED LOW. CALL LIGHT IN REACH.
[2016-12-30 04:00] VITALS: BP 168/70
--- NOTE | 2016-12-30 07:45 | NUR ---
PT IS LYING IN BED ON BACK, STATED FEELS FULL BUT UNABLE TO USE RESTROOM UP HERE. BED IN LOW POSITION, CALL LIGHT IN REACHMNO OTHER NEEDS RIGHT NOW, CONTINUE WITH PLAN OF CARE
[2016-12-30 08:11] VITALS: BP 184/69
[2016-12-30] MEDS ORDERED: ELIQUIS2.5 MG PO (08:18)
[2016-12-30] MEDS ORDERED: HYDROCODONE-APA1 TAB PO (08:20)
--- NOTE | 2016-12-30 09:52 | NUR ---
Patient set up with a CPM and will be delivered to the house by [facility]. Patient discharging home with to drive home. Denies any other CM needs at this time. CM will continue to follow and assist with discharge planning as needed
--- NOTE | 2017-01-31 14:52 | OP ---
PATIENT NAME: KAMRAN XAVIER MEDICAL RECORD: [id number] :38 LOCATION:D.MS [place]2212 ADMISSION DATE:12/27/16 SURGEON: ARMANDO HOUSTON MD DATE OF OPERATION: 12/27/2016 PREOPERATIVE DIAGNOSIS: Painful total knee arthroplasty. POSTOPERATIVE DIAGNOSIS: Painful total knee arthroplasty. PROCEDURE: Revision right total knee arthroplasty. SURGEON: Armando Houston MD ANESTHESIA: General. INTRAOPERATIVE COMPLICATIONS: None. SUMMARY OF PATHOLOGIC FINDINGS: The patient's tibial baseplate was either nonadherent at the time of surgery or it had become loose from the cement mantle of the tibia as it came out very easily. OPERATIVE SUMMARY IN DETAIL: After obtaining the appropriate preoperative orthopedic surgery consent as well as anesthetic consultation, evaluation and clearance, the patient was brought to the operating room and placed on the operating table in supine position. After general laryngeal mask airway was administered, tourniquet was placed about the proximal aspect of the right lower extremity. Right lower extremity was then prepped and draped in routine sterile fashion. The leg was elevated and exsanguinated, tourniquet inflated to 350 mmHg. Midline incision was taken down for a paramedian arthrotomy. The patella was everted and the entire previously placed total knee was exposed. The femur was taken down with very minimal bone loss, it was adherent; however, when approaching the tibial baseplate, a very small tap rendered it completely free of the knee and all the cement was left behind. At this point, the femur was approached. Serial and sequential reaming and broaching were done followed by distal femoral cuts. The chamfer cuts were made along with the box cut made for the [place] total stabilization system. A trial was then put on to the distal femur and put into place with good fit and the proximal tibia was approached. Serial and sequential reaming and broaching likewise for the tibia cleanup cut was made for the tibia. Trials were undertaken with a 100-mm stem using various polyethylene inserts. When it was felt that the most appropriate combination had been achieved, the trial was removed and final components were assembled on the back table. Final components were then cemented into place. After all cement was allowed to harden, the knee was taken through range of motion and found to be stable in all planes. Paramedian arthrotomy was then closed with #2 Ethibond followed by #1 Vicryl, 2-0 Vicryl and skin alivia. Sterile dressings were applied. The patient was awakened and taken to the recovery room in stable condition. All final needle and sponge counts were correct. TRANSINT:[id number] Voice Confirmation ID: [id number] DOCUMENT ID: [id number] OPERATIVE REPORT [id number] KAMRAN XAVIER MD, ARMANDO MANCERA at 1452 CC: [id number] DICTATION DATE: 01/31/17 1321 DISABILITY LIAISON OFFICER: 01/31/17 1336 DIS IN 12/30/16 [place] [id number] [place] [address]
== END 2016-12-30 11:11 | disposition home or self-care (01) | DRG 470 ==
LOC: D.SDCHOLD 10:00 → D.MS 12-27 06:15 → D.SDCHOLD 12-27 06:15 → D.MS 12-27 15:16 → D.SDCHOLD 12-27 15:20 → D.MS 12-30 11:11
PROVIDERS: ADMIT Orthopaedic Surgery
PROC: 0SRC0J9 Replacement of Right Knee Joint with Synthetic Substitute, Cemented, Open Approach (ICD-10-PCS; principal; 2016-12-27 11:45)
DX: T84.84XA Pain due to internal orthopedic prosthetic devices, implants and grafts, initial encounter (principal); D62 Acute posthemorrhagic anemia; E11.22 Type 2 diabetes mellitus with diabetic chronic kidney disease; I12.9 Hypertensive chronic kidney disease with stage 1 through stage 4 chronic kidney disease, or unspecified chronic kidney disease; N18.3 Chronic kidney disease, stage 3 (moderate); Z87.891 Personal history of nicotine dependence; E11.40 Type 2 diabetes mellitus with diabetic neuropathy, unspecified; Z95.1 Presence of aortocoronary bypass graft; I25.10 Atherosclerotic heart disease of native coronary artery without angina pectoris

== ENCOUNTER → 2017-03-28 08:50 | Outpatient (CLI) | payer MEDICARE, OTHER ==
[2016-12-28 12:46] VITALS: BMI 28.6
[~2017-03-28 08:50] MED LIST changes: +HYDROCODONE-APA1 TAB PO
== END | disposition home or self-care (01) ==
LOC: D.CT 08:50
DX: R06.00 Dyspnea, unspecified (principal); R06.02 Shortness of breath

== ENCOUNTER → 2017-07-04 06:58 | Outpatient (CLI) | payer MEDICARE, OTHER ==
[2016-12-28 12:46] VITALS: BMI 28.6
== END | disposition home or self-care (01) ==
LOC: D.RAD 06-29 09:30 → D.CT 06-29 10:30 → D.RAD 06:58
DX: M54.16 Radiculopathy, lumbar region (principal)

== ENCOUNTER 2017-08-29 13:30 | Inpatient (IN) | payer MEDICARE, OTHER ==
[~2017-08-29] VITALS: Ht 182.9 cm; Wt 93.2 kg
--- NOTE | ~2017-08-29 | EC ---
PATIENT:KAMRAN XAVIER DATE OF SERVICE: 08/29/17 SEX: M MEDICAL RECORD: [id number] DATE OF : 38 LOCATION:D.M2 D.212 AGE OF PATIENT: 76 ADMISSION DATE: 08/29/17 REFERRING PHYSICIAN: INTERPRETING PHYSICIAN: BRANDIN FRANCO MD ECHOCARDIOGRAM REPORT ECHO CHARGES 4 ECHO COMPLETE Date: 08/30 CLINICAL DIAGNOSIS: CHF HX CAD/CABG/PACER ECHOCARDIOGRAPHIC MEASUREMENTS (adult normal given) AC root (d.<3.7cm) 3.7 cm LV Septum d (<1.2 cm> 1.4 cm Valve Excursion 1.9 cm LV Septum (systole) 1.8 cm Left Atria (s.<4.0cm> 3.6 cm LVPW d(<1.2cm) 1.7 cm RV (d.<2.3cm) 4.5 cm LVPW (sytole) 2.1 cm LV diastole(<5.6CM) 4.8 cm MV E-F(>70mm/sec) cm LV systole 3.2 cm LVOT Diameter 1.6 cm MV exc.(>10mm) 1.8 cm Est.ejection fraction (50-75%) % DOPPLER: LVIT cm/sec A 119 cm/sec E 102 cm/sec LA cm/sec RVSP 20 mmHg LVOT 102 cm/sec AOP1/2T m/s Asc. Ao 156 cm/sec RVOT 75 cm/sec RA cm/sec PA 107 cm/sec AV Gradient Peak mmHg AV Mean mmHg AV Area 1.3 cm MV Gradient Peak 5.52 mmHg MV Mean 2.26 mmHg MV Area cm COMMENTS: Car Mechanic: Margaret SOLIS Senior Commercial Loan Officer: 1 Dr. Franco TAPE# PACS Pericardial Effusion N DATE OF SERVICE: 08/30/2017 PROCEDURE: Echocardiogram. FINDINGS: 1. Left ventricle chamber size is within normal limits. Left ventricular systolic function is normal. Overall ejection fraction estimated at 60%. 2. Left atrium is within normal limits at 3.6 cm. Right atrium and right ventricle chamber sizes are mildly dilated. 3. Valvular structures have normal structure and motion. ECHOCARDIOGRAM REPORT [id number] KAMRAN XAVIER 4. Doppler interrogation reveals mild to moderate mitral regurgitation, trace tricuspid regurgitation, no other valvular insufficiency or stenosis. Pulmonary systolic pressure is estimated at 20 mmHg. 5. No evidence of pericardial effusion or left ventricular thrombus. TRANSINT:[id number] Voice Confirmation ID: [id number] DOCUMENT ID: [id number] BRANDIN FRANCO MD at 1230 CC: [id number] DICTATION DATE: 08/30/171551 MEMBERSHIP ADVISOR: 08/30/17 1558 ADM IN [facility] [address] [place] [id number]
[2017-08-29] MEDS ORDERED: BAYER CHEWABLE81 MG PO (13:42)
[2017-08-29 14:15] LABS: BASOPHILS 0.2 % (0-2); EOSINOPHILS 1.6 % (0-7); HEMOGLOBIN 8.7 g/dL (13.5-17.5); IMMATURE GRANULOCYTES 0.1 % (0-5); LYMPHOCYTES 21.4 % (15-50); MCH 25.2 pg (26.0-34.0); MCHC 31.1 g/dL (31.0-37.0); MCV 81.2 fL (80.0-100.0); MEAN PLATELET VOLUME 8.5 fL (7.4-10.4); MONOCYTES 10.2 % (2-11); NEUTROPHILS 66.5 % (40-80); PLATELET COUNT 191 10x3/uL (130-400); RBC 3.45 10x6/uL (4.20-6.10); RDW 18.8 % (11.5-14.5); WBC 9.3 10x3/uL (4.8-10.8)
[2017-08-29 14:54] LABS: ALBUMIN 3.4 g/dL (3.4-5.0); ALKALINE PHOSPHATASE 47 U/L (46-116); ALT (SGPT) 31 U/L (10-68); BILIRUBIN - TOTAL 0.56 mg/dL (0.2-1.3); CALC OSMOLALITY 275 mosm/kg (275-300); CALCIUM 8.7 mg/dL (8.5-10.1); CARBON DIOXIDE 26.6 mmol/L (21.0-32.0); CHLORIDE - SERUM 103 mmol/L (98-107); CREATININE - SERUM 1.1 mg/dL (0.6-1.3); POTASSIUM - SERUM 4.2 mmol/L (3.5-5.1); PROTEIN - SERUM 6.6 g/dL (6.4-8.2); SODIUM 138 mmol/L (136-145); UREA NITROGEN 16 mg/dL (7-18); eGFR NON AFRICAN AMERICAN 69 mL/min (90-120)
[2017-08-29 14:56] LABS: GLUCOSE 79 mg/dL (74-106)
[2017-08-29 14:58] LABS: CKMB 1.4 U/L (0.0-3.6); CREATINE KINASE 93 UL (21-232); PRO BNP 1083 pg/mL (0-450)
[2017-08-29 14:59] LABS: TROPONIN-I < 0.017 ng/mL (0.000-0.060)
[2017-08-29 19:14] VITALS: BP 189/74
[2017-08-30 01:05] VITALS: BP 160/63
[2017-08-30 02:01] VITALS: Ht 182.9 cm; Wt 93.2 kg
[2017-08-30 05:10] VITALS: BP 174/61
[2017-08-30 05:44] LABS: BASOPHILS 0.4 % (0-2); EOSINOPHILS 2.3 % (0-7); HEMATOCRIT 29.5 % (42.0-54.0); HEMOGLOBIN 9.1 g/dL (13.5-17.5); IMMATURE GRANULOCYTES 0.1 % (0-5); LYMPHOCYTES 32.9 % (15-50); MCH 24.9 pg (26.0-34.0); MCHC 30.8 g/dL (31.0-37.0); MCV 80.8 fL (80.0-100.0); MEAN PLATELET VOLUME 8.8 fL (7.4-10.4); MONOCYTES 8.4 % (2-11); NEUTROPHILS 55.9 % (40-80); PLATELET COUNT 208 10x3/uL (130-400); RBC 3.65 10x6/uL (4.20-6.10); RDW 18.7 % (11.5-14.5); WBC 7.5 10x3/uL (4.8-10.8)
[2017-08-30 06:07] LABS: ANION GAP 12.5 mmol/L (8-16); CALCIUM 9.1 mg/dL (8.5-10.1); CARBON DIOXIDE 27.6 mmol/L (21.0-32.0); CREATININE - SERUM 1.1 mg/dL (0.6-1.3)
[2017-08-30 06:13] LABS: POTASSIUM - SERUM 5.1 mmol/L (3.5-5.1)
[2017-08-30 08:36] VITALS: BP 197/73
[2017-08-30 12:43] VITALS: BP 163/50
[2017-08-30 13:06] LABS: % SATURATION 7 % (15-55); IRON 27 ug/dl (35-150); TOTAL IRON BIND CAPACITY 381 ug/dl (260-445); UNSAT IRON BIND CAPACITY 354 ug/dl (150-375)
[2017-08-30 15:20] VITALS: BP 174/65
[2017-08-30 19:52] VITALS: BP 176/66
[2017-08-31 00:32] VITALS: BP 159/76
[2017-08-31 05:07] VITALS: BP 164/65
[2017-08-31 06:31] LABS: BASOPHILS 0.6 % (0-2); EOSINOPHILS 3.4 % (0-7); HEMOGLOBIN 9.5 g/dL (13.5-17.5); IMMATURE GRANULOCYTES 0.1 % (0-5); LYMPHOCYTES 31.3 % (15-50); MCH 25.3 pg (26.0-34.0); MCHC 31.7 g/dL (31.0-37.0); MEAN PLATELET VOLUME 8.4 fL (7.4-10.4); MONOCYTES 10.2 % (2-11); NEUTROPHILS 54.4 % (40-80); PLATELET COUNT 206 10x3/uL (130-400); RBC 3.75 10x6/uL (4.20-6.10); RDW 18.7 % (11.5-14.5); WBC 7.7 10x3/uL (4.8-10.8)
[2017-08-31 07:01] LABS: CALC OSMOLALITY 279 mosm/kg (275-300); CARBON DIOXIDE 28.6 mmol/L (21.0-32.0); CHLORIDE - SERUM 105 mmol/L (98-107); GLUCOSE 101 mg/dL (74-106); POTASSIUM - SERUM 4.8 mmol/L (3.5-5.1); SODIUM 140 mmol/L (136-145); UREA NITROGEN 15 mg/dL (7-18); eGFR NON AFRICAN AMERICAN 77 mL/min (90-120)
[2017-08-31 08:10] VITALS: BP 185/65
[2017-08-31] MEDS ORDERED: ELIQUIS5 MG PO ×3 (08:39→08:49)
[2017-08-31 11:02] VITALS: BP 130/64
[2017-10-25] MEDS ORDERED: GARLIC PO (08:41)
[2017-10-25] MEDS ORDERED: VITAMIN D31000 UNIT PO (08:41)
[2017-10-25] MEDS ORDERED: ECHINACEA PO (08:41)
[2017-10-25] MEDS ORDERED: BILBERRY100 MG PO (08:42)
[2017-10-25] MEDS ORDERED: ZINC30 MG PO (08:42)
[2017-10-25] MEDS ORDERED: SELENIUM PO (08:42)
== END 2017-08-31 14:52 | disposition home or self-care (01) | DRG 175 ==
LOC: D.ER 13:30 → D.EDHOLD 17:57 → D.M2 17:57
PROVIDERS: Family Medicine; Internal Medicine Nephrology
DX: I26.99 Other pulmonary embolism without acute cor pulmonale (principal); I50.23 Acute on chronic systolic (congestive) heart failure; I10 Essential (primary) hypertension; E11.9 Type 2 diabetes mellitus without complications; I25.10 Atherosclerotic heart disease of native coronary artery without angina pectoris; Z95.1 Presence of aortocoronary bypass graft; D50.9 Iron deficiency anemia, unspecified; E78.5 Hyperlipidemia, unspecified

== ENCOUNTER 2017-10-27 06:30 | Day surgery (SDC) | payer MEDICARE, OTHER ==
[2017-10-25 09:16] LABS: HEMATOCRIT 30.2 % (42.0-54.0); HEMOGLOBIN 9.7 g/dL (13.5-17.5); MCH 25.9 pg (26.0-34.0); MCHC 32.1 g/dL (31.0-37.0); MCV 80.7 fL (80.0-100.0); MEAN PLATELET VOLUME 8.3 fL (7.4-10.4); RBC 3.74 10x6/uL (4.20-6.10); RDW 16.4 % (11.5-14.5); WBC 6.5 10x3/uL (4.8-10.8)
[2017-10-25 09:30] LABS: ANION GAP 14.8 mmol/L (8-16); CALCIUM 8.6 mg/dL (8.5-10.1); CARBON DIOXIDE 23.8 mmol/L (21.0-32.0); CREATININE - SERUM 1.3 mg/dL (0.6-1.3); POTASSIUM - SERUM 4.6 mmol/L (3.5-5.1)
[~2017-10-27] VITALS: Ht 182.9 cm; Wt 94.3 kg
--- NOTE | ~2017-10-27 | OP ---
PATIENT NAME: KAMRAN XAVIER MEDICAL RECORD: [id number] :36 LOCATION:D.OPS ADMISSION DATE: SURGEON: PATRICIA MARTIN MD DATE OF OPERATION: 10/27/2017 PREOPERATIVE DIAGNOSES: Lumbar spinal stenosis and foraminal stenosis L4-L5, right. POSTOPERATIVE DIAGNOSES: Lumbar spinal stenosis and foraminal stenosis L4-L5, right. PROCEDURES: Lumbar laminotomy, medial facetectomy, and foraminotomy L4-L5 on the right with METRx retractor. SURGEON: Patricia Martin MD DESCRIPTION OF TECHNIQUE: After induction of general endotracheal anesthesia, the patient was rolled prone on a Omar frame. Lumbar spine was prepped and draped in usual sterile fashion. Fluoroscopic x-ray and spinal needle localized the L4-L5 interspace on the right side. Level was confirmed with fluoroscopic x-ray. A stab incision was made with a #11 blade and series of dilators were used to advance a METRx retractor to the L4-L5 interspace on the right side. The level was confirmed with fluoroscopic x-ray. A Midas Kal drill and microscope were used to perform laminotomy, medial facetectomy, and foraminotomy at L4-L5 on the right. Hypertrophied ligamentum flavum was removed with Cloward rongeurs. Following this, the L4 and L5 nerve roots were decompressed well. Meticulous hemostasis was maintained throughout the wound. The wound was irrigated with copious amounts of Ancef irrigant solution. The retractor was removed. The fascia was closed with 2-0 Vicryl suture. The subdermal layer was closed with 3-0 Vicryl suture. The skin was closed with alivia. A sterile dressing was applied to the wound. The patient was awakened in good condition and taken to recovery. All counts were reported as correct. Estimated blood loss was minimal. TRANSINT:[id number] Voice Confirmation ID: [id number] DOCUMENT ID: [id number] PATRICIA MARTIN MD at 1338 CC: [id number] DICTATION DATE: 10/27/17 1409 HUMAN RESOURCES ADVISOR: 10/27/17 1507 [facility] 10/27/17 [place] [address]
[~2017-10-27 06:30] MED LIST changes: +ELIQUIS5 MG PO; +GARLIC PO; +ZINC30 MG PO
[2017-10-27 07:56] VITALS: BP 152/65; BMI 28.2
[2017-10-27 08:15] VITALS: BP 152/65; Ht 182.9 cm; Wt 94.3 kg
[2017-10-27] MEDS ORDERED: NORCO 10-325 TA1 TAB PO (14:03)
== END 2017-10-27 15:00 | disposition home or self-care (01) ==
LOC: D.OPS 06:30 → D.PAN 08:30 → D.OPS 08:30
PROVIDERS: Anesthesiology
DX: M48.061 Spinal stenosis, lumbar region without neurogenic claudication (principal); I10 Essential (primary) hypertension; I25.10 Atherosclerotic heart disease of native coronary artery without angina pectoris; Z95.5 Presence of coronary angioplasty implant and graft; Z95.1 Presence of aortocoronary bypass graft; E11.40 Type 2 diabetes mellitus with diabetic neuropathy, unspecified

== ENCOUNTER 2017-12-06 10:15 | Outpatient (CLI) | payer MEDICARE, OTHER ==
[~2017-12-06] VITALS: Ht 182.9 cm; Wt 94.1 kg
--- NOTE | ~2017-12-06 | HEMODYNAMI ---
PATIENT:KAMRAN XAVIER MEDICAL RECORD: [id number] : 36 LOCATION:D.CAT ADMISSION DATE: 12/06/17 Generatedon:12/06/201713:50 Patient name: KAMRAN XAVIER Patient #: [id number] SS N: : 1940 Date of study: 12/06/2017 Page: Of Hemodynamic Procedure Report Patient Data Patient Demographics Procedure consent was obtained First Name: KAMRAN Gender: Male Last Name: DUC : 1940 [facility] Initial: C Age: 77 year(s) Patient #: [id number] Race: Additional ID: [id number] Contact details Address: [place] [address] State: [facility] Zip code: [address] Past Medical History History of disease Date Diagnosis Comments CAD Hypertension Diabetes Allergies: No known allergies Admission Admission Data Admission Date: 12/06/2017 Admission Time: 10:15 Lab Results Lab Result Date: 12/06/2017 Lab Result Time: 0:00 Biochemistry Name Units Result Min Max BUN mg/dl 9 --(*---)-- 7 18 Creatinine mg/dl 1.1 --(--*-)-- 0.6 1.3 CBC Name Units Result Min Max Hemoglobin g/dl 9.5 *-(----)-- 13.5 17.5 Procedure Procedure Types Cath Procedure Diagnostic Procedure LHC LHC w/Coronaries w/Grafts Peripheral Cath Diagnostic Procedure Investor Relations Specialist Peripheral Procedures Fawhh-Pdbdcev-Qoo-Off Procedure Description Procedure Date Procedure Date: 12/06/2017 Procedure Start Time: 13:33 Procedure End Time: 13:48 Procedure Staff Name Function Tee Arias MD Performing Physician Vanna Hancock RT Monitor Miranda Knapp RT Scrub Claudette Barroso RN Nurse Procedure Data Cath Procedure Fluoroscopy Diagnostic fluoroscopy Total fluoroscopy Time: 3.9 time: 3.9 min min Diagnostic fluoroscopy Total fluoroscopy dose: 908 dose: 908 mGy mGy Contrast Material Contrast Material Type Amount (ml) Isovue 300 85 Entry Location Entry Primary Successful Side Size Upsize Upsize Entry Closure Succes sful Closure Location (Fr) 1 (Fr) 2 (Fr) Remarks Device Remarks Femoral Left 5 Fr Exoseal artery Estimated blood loss: 5 ml Diagnostic catheters Device Type Used For End Catheter Placement Medtronic Dexterity 5Fr Procedure JL 4.0 catheter (NO COST SUPPLY) Medtronic Dexterity 5Fr Procedure 3DRC catheter (NO COST SUPPLY) Medtronic Dexterity 5Fr Procedure Pigtail catheter(NO COST SUPPLY) Procedure Medications Medication Administration Route Dosage 0.9% NaCl I.V. 100 ml/hr Oxygen etCO2 Nasal cannula 2 l/min Lidocaine 2% added to field 20 Heparin Flush Bag added to field 2 bags (1000units/500ml NS) Versed I.V. 2 mg Fentanyl I.V. 50 mcg Hemodynamics Rest HGB: 9.5 (g/dl) Heart Rate: 52 (bpm) Snapshots Pre Cath Intra NCS Post Cath Vital Signs Time Heart Resp SPO2 etCO2 NIBP (mmHg) Rhythm Pain Sedation Rate (ipm) (%) (mmHg) Status Level (bpm) 13:25:12 62 18 97 27.6 161/76(118) NSR 0 (11) 10(A) , No pain 13:29:47 65 15 100 30 157/72(119) NSR 0 (11) 10(A) , No pain 13:34:17 63 19 100 35 155/70(129) NSR 0 (11) 9(A) , No pain 13:38:52 60 15 100 32.3 153/70(115) NSR 0 (11) 9(A) , No pain 13:43:22 64 19 100 33 153/66(117) NSR 0 (11) 10(A) , No pain 13:47:53 63 13 100 34.3 155/66(105) NSR 0 (11) 10(A) , No pain Medications Time Medication Route Dose Verified Delivered Reason Notes Eff ectiveness by by 13:29:49 0.9% NaCl I.V. 100 Tee Claudette used for ml/hr St Farhat Barroso procedure MD URIOSTEGUI 13:29:57 Oxygen etCO2 2 Tee Wilkins used for Nasal l/min HugoFarhat Barroso procedure cannula MD URIOSTEGUI 13:30:02 Lidocaine 2% added 20ml Tee Oliveira for local to vial [facility] anesthetic field MD RANGEL 13:30:08 Heparin Flush added 2 Tee Wilkins used for Bag to bags [facility] procedure (1000units/500ml field RANGEL RN NS) 13:31:21 Versed I.V. 2 mg Tee Wilkins for HugoFarhat Barroso sedation RN 13:31:27 Fentanyl I.V. 50 Tee Wilkins for [facility] [place] St Farhat Barroso sedation MD URIOSTEGUIbaker second Log Time Note 13:02:13 Signed procedure consent form obtained from patient. 13:02:15 Time tracking: Regular hours (M-F 7:00 - 5:00) 13:02:20 Plan of Care:Hemodynamics will remain stable., Cardiac rhythm will remain stable., Comfort level will be maintained., Respiratory function will remain adequate., Patient/ family verbilizes understanding of procedure., Procedure tolerated without complication., Recovers from procedure without complications.. 13:02:22 Diagnostic Cath status Elective 13:02:29 H&P Date Dictated: 11/28/2017 Within 30 days and on chart., H&P Addendum completed by physician on day of procedure. (MUST COMPLETE FOR ALL OUTPATIENTS). 13:02:37 Patient allergic to No known allergies 13:03:57 Claudette Barroso RN sent for patient. Start room use. 13:07:38 Lab Result : BUN 9 mg/dl 13:07:38 Lab Result : Hemoglobin 9.5 g/dl 13:07:38 Lab Result : Creatinine 1.1 mg/dl 13:14:44 Patient received from Pre/Post Procedure Room to CCL 1 Alert and oriented. Tansferred to table in Supine position. 13:14:46 Warm blankets applied, and sonia hugger turned on for patient comfort. 13:14:46 Correct patient and procedure confirmed by team. 13:14:48 ECG and BP/O2 sat monitors applied to patient. 13:23:37 Vital chart was started 13:25:19 Baseline sample Acquired. 13:25:25 Rhythm: sinus rhythm 13:25:26 Full Disclosure recording started 13:25:27 Pre-op teaching completed and patient verbalized understanding. 13:25:27 Pre-procedure instructions explained to patient. 13:25:29 Family in patients room. 13:25:31 Patient NPO since Midnight. 13:25:35 Is the patient allergic to Iodine/contrast media? No. 13:25:36 Is patient on blood thinner?Yes 13:25:39 ACC The patient was administered the following blood thiners within the last 24 hours: Eliquis 13:25:40 Patient diabetic? Yes. 13:25:41 If diabetic: On Metformin? Yes 13:25:43 If on Metformin: Last Dose? 12/05/2017 13:25:46 Previous problem with sedation/anesthesia? No ? 13:25:47 Snore? Yes 13:25:50 Sleep apnea? No 13:25:50 Deviated septum? No 13:25:51 Opens mouth fully? Yes 13:25:52 Sticks out tongue? Yes 13:25:54 Airway obstruction? No ? 13:25:55 Dentures? No ? 13:25:59 Pre procedure: left dorsailis pedis pulse 1+ Palpable, but thready & weak; easily obliterated 13:26:04 Pre procedure: right dorsailis pedis pulse 1+ Palpable, but thready & weak; easily obliterated 13:26:19 Patient pain scale 0/10 ?. 13:26:23 IV patent on arrival in left hand with 0.9% NaCl at [facility]. 13:26:25 Lab results completed and on chart. 13:26:27 Left groin area was prepped with chlora-prep and draped in sterile fashion 13:26:30 Alarms reviewed by R. N. 13:26:30 Sharps counted by scrub and verified by R.N. 13:26:35 ACIST Syringe (77818) opened to sterile field. 13:26:35 Bag Decanter (2002) opened to sterile field. 13:26:43 ACIST Hand Control (77010) opened to sterile field. 13:26:45 ACIST Manifold (18891) opened to sterile field. 13:28:54 DIAGNOSTIC WIRE .035 260cm J wire (300965) opened to sterile field. 13:29:20 --------ALL STOP TIME OUT------ 13:29:21 Final Timeout: patient, procedure, and site verified with staff and physician. All members of the team are in agreement. 13:29:22 Left groin site verified by team. 13:29:24 Physical assessment completed. ASA score P 2 - A patient with mild systemic disease as per Tee Arias MD. 13:29:27 Sedation plan: IV Moderate Sedation Medication:Versed, Fentanyl 13:29:49 0.9% NaCl 100 ml/hr I.V. was administered by Claudette Barroso RN; used for procedure; 13:29:57 Oxygen 2 l/min etCO2 Nasal cannula was administered by Claudette Barroso RN; used for procedure; 13:30:02 Lidocaine 2% 20ml vial added to field was administered by Tee Arias MD; for local anesthetic; 13:30:08 Heparin Flush Bag (1000units/500ml NS) 2 bags added to field was administered by Claudette Barroso RN; used for procedure; 13:31:21 Versed 2 mg I.V. was administered by Claudette Barroso RN; for sedation; 13:31:27 Fentanyl 50 mcg I.V. was administered by Claudette Barroso RN; for sedation; 13:32:58 Zero performed for pressure channel P1 13:33:02 Procedure started. 13:33:05 Local anesthetic to left femerol artery with Lidocaine 2% by Tee Arias MD.INITIAL ACCESS ONLY 13:33:48 SHEATH 5FR [place] (JGR539) opened to sterile field. 13:34:43 A 5 Fr sheath was inserted into the Left Femoral artery 13:35:09 A Medtronic Dexterity 5Fr JL 4.0 catheter (NO COST SUPPLY) was advanced over the wire and used for Procedure. 13:36:35 LCA angiography performed. 13:36:50 Catheter exchanged over wire. 13:38:04 A Medtronic Dexterity 5Fr 3DRC catheter (NO COST SUPPLY) was advanced over the wire and used for Procedure. 13:38:23 RCA angiography performed. 13:38:52 SVG to OM angiography performed. 13:39:56 SYKES to LAD angiography performed. 13:40:07 Catheter removed. 13:40:43 A Medtronic Dexterity 5Fr Pigtail catheter(NO COST SUPPLY) was advanced over the wire and used for Procedure. 13:42:28 UNABLE TO CROSS VALVE. 13:42:36 PIGTAIL PULLED DOWN FOR AFRO 13:42:45 Abdominal angiogram w/ runoff was performed. 13:43:29 Left leg runoff performed. 13:43:54 Right leg runoff performed. 13:44:51 Catheter removed. 13:44:59 EXOSEAL 5Fr (EX500) opened to sterile field. 13:45:20 Sheath removed intact; hemostasis achieved with Exoseal to the Left Femoral artery. 13:45:46 Procedure ended.(Physican Out) 13:46:30 Fluoroscopy time 03.90 minutes. 13:46:33 Flurop Dose total: 908 13:46:33 Fluoroscopy dose: 908 mGy 13:46:37 Contrast amount:Isovue 300 85ml. 13:46:38 Sharps counted by scrub and verified by R.N. 13:46:41 Post-op/insertion site Left Femoral artery dressed using a 4 x 4 and Tegaderm. 13:46:48 Post left femerol artery:stable, soft, clean and dry 13:46:54 Post-procedure physical assessment completed. ASA score P 2 - A patient with mild systemic disease as per Tee Arias MD. 13:47:47 Post procedure rhythm: unchanged. 13:47:50 Estimated blood loss: 5 ml 13:47:51 Post procedure instruction explained to patient.Patient verbalizes understanding. 13:47:52 Patient needs reinforcement of post procedure teaching. 13:48:14 Procedure type changed to Cath procedure, Diagnostic procedure, LHC, LHC w/Coronaries w/Grafts, Peripheral Cath Diagnostic Procedure, Investor Relations Specialist Peripheral Procedures, Vhtjs-Hurjgyo-Gez-Off 13:48:32 Procedure and supply charges have been captured, reviewed, submitted and are correct. 13:48:37 Vital chart was stopped 13:48:37 See physician's report for complete and final results. 13:48:40 Report given to Pre/Post Procedure Room. 13:48:42 Patient transfered to Pre/Post Procedure Room with Bed. 13:48:45 Procedure ended. 13:48:45 Full Disclosure recording stopped 13:48:47 End room use (Document Last) Device Usage Item Name Manufacture Quantity Catalog Hospital Part Current Minimal Lot# / Number Charge Number Stock Stock Serial# Code ACIST Acist 1 41352 166920 997757 [id number] 20 Syringe Medical (81602) Systems Inc Bag Microtek 1 496760 64487 716171 5 Decanter Medical Inc. () ACIST Hand Acist 1 93981 441637 023359 308651 5 Control Medical (93716) Systems Inc ACIST Acist 1 92248 522213 118599 155741 5 [facility] Medical (08020) Systems Inc DIAGNOSTIC [place] 1 715900 408800 314380 756016 30 WIRE .035 260cm J wire (604385) SHEATH 5FR Terumo 1 [id number] 739892 867432 107923 40 [place] (NTD803) Medtronic Medtronic 1 [id number] 012948 154856 5 Dexterity 5Fr JL 4.0 catheter (NO COST SUPPLY) Medtronic Medtronic 1 [id number] 553179 256684 5 Dexterity 5Fr 3DRC catheter (NO COST SUPPLY) Medtronic Medtronic 1 [id number] 807061 289178 5 Dexterity 5Fr Pigtail catheter(NO COST SUPPLY) EXOSEAL 5Fr Cardinal 1 EX500 827813 212631 584780 10 (EX500) Health Signature Audit [place] Stage Time Signature Unsigned Intra-Procedure 12/06/2017 Vanna Hancock 1:50:06 PM RT(R) Signatures Monitor : Vanna Hancock Signature : RT Date : Time : [address] [address]
--- NOTE | ~2017-12-06 | OP ---
PATIENT NAME: KAMRAN XAVIER MEDICAL RECORD: [id number] :38 LOCATION:D.CAT ADMISSION DATE: SURGEON: GASTON HOWE MD DATE OF OPERATION: 12/06/2017 PROCEDURE: Left heart catheterization plus selective coronary angiography plus AFRO with left femoral artery approach. CATHETERS: A 5-Syriac sheath, 5/4 left and right Erika, 5/4 pig. The procedure was well tolerated. The patient returned to the castañeda, sheath removed. ExoSeal device placed. FINDINGS: Left ventriculography in 30-degree DUNLAP view not performed. CORONARY ANATOMY: LEFT MAIN: Left main is free of disease. LAD: fills for a short period of time is seen filling via competitive flow. CIRCUMFLEX: Left dominant system. Circumflex is free of disease. Stent is widely patent without evidence of restenosis. No progression of [place] disease. RIGHT CORONARY ARTERY: The right coronary artery is a small vessel. Previously placed stent is widely patent. SYKES to LAD: SYKES to LAD is widely patent throughout its course without evidence of post-anastomotic stenosis. SAPHENOUS VEIN GRAFT: Saphenous vein graft to diagonal versus high OM, widely patent throughout its course without evidence of post-anastomotic stenosis. Next, the catheter was withdrawn to the level of the renal arteries and aortography with runoff was performed. Nonselective angiography of the renal arteries show no evidence of significant atherosclerotic disease. The descending aorta shows no evidence of dissection, no evidence of aneurysm. LEFT SYSTEM: Left iliac stent is widely patent without evidence of restenosis. The femoral system including deep superficial and common are widely patent with some calcifications, but no significant stenosis, good 2-vessel runoff. 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 This reconstitutes still in the iliac system with the femoral system showing good runoff both superficial, deep, and common. IMPRESSION: 1. Widely patent stents. 2. Patent saphenous vein graft to the diagonal, saphenous SYKES to LAD, totally occluded iliac with good constitution distally, not amenable to percutaneous intervention. Unless symptoms warranted, would not consider bypass surgery at this point. TRANSINT:[id number] Voice Confirmation ID: [id number] DOCUMENT ID: [id number] OPERATIVE REPORT [id number] KAMRAN XAVIER GASTON HOWE MD at 8086 CC: [id number] DICTATION DATE: 12/06/17 1353 MONORAIL CRANE OPERATOR: 10/23/18 1509 DEP CLI 12/06/17 [place] [address] [place] [address]
[~2017-12-06 10:15] MED LIST changes: +NORCO 10-325 TA1 TAB PO
[2017-12-06] MEDS ORDERED: COZAAR100 MG PO (10:35)
[2017-12-06 10:39] VITALS: BP 167/65; Ht 182.9 cm; Wt 94.1 kg
[2017-12-06 10:57] LABS: BASOPHILS 0.2 % (0-2); EOSINOPHILS 0.7 % (0-7); HEMATOCRIT 30.2 % (42.0-54.0); HEMOGLOBIN 9.5 g/dL (13.5-17.5); LYMPHOCYTES 26.4 % (15-50); MCH 25.6 pg (26.0-34.0); MCHC 31.5 g/dL (31.0-37.0); MCV 81.4 fL (80.0-100.0); MEAN PLATELET VOLUME 8.6 fL (7.4-10.4); MONOCYTES 9.4 % (2-11); NEUTROPHILS 63.3 % (40-80); PLATELET COUNT 248 10x3/uL (130-400); RBC 3.71 10x6/uL (4.20-6.10); RDW 16.8 % (11.5-14.5); WBC 9.5 10x3/uL (4.8-10.8)
[2017-12-06 11:12] LABS: ANION GAP 17.9 mmol/L (8-16); CALCIUM 9.1 mg/dL (8.5-10.1); CARBON DIOXIDE 21.6 mmol/L (21.0-32.0); CREATININE - SERUM 1.1 mg/dL (0.6-1.3); POTASSIUM - SERUM 4.5 mmol/L (3.5-5.1)
== END 2017-12-06 15:50 | disposition home or self-care (01) ==
LOC: D.CATH 10:15
PROVIDERS: Internal Medicine Interventional Cardiology
DX: I25.110 Atherosclerotic heart disease of native coronary artery with unstable angina pectoris (principal); I70.213 Atherosclerosis of native arteries of extremities with intermittent claudication, bilateral legs

== ENCOUNTER → 2018-01-18 08:51 | Outpatient (CLI) | payer MEDICARE, OTHER ==
[2017-12-06 10:39] VITALS: BMI 28.1
[~2018-01-18 08:51] MED LIST changes: +COZAAR100 MG PO
== END | disposition home or self-care (01) ==
LOC: D.CT 08:51
DX: J98.4 Other disorders of lung (principal)

== ENCOUNTER 2018-06-13 08:49 | Inpatient (IN) | payer MEDICARE, OTHER ==
[~2018-06-13] VITALS: Ht 182.9 cm; Wt 88.0 kg
--- NOTE | 2018-06-13 09:20 | NUR ---
PT GIVEN SPECIMEN CUP AND ASKED TO PROVIDE URINE SAMPLE FOR ORDERED LABS. PT VOICED UNDERSTANDING. CALL LIGHT IN REACH, FAMILY MEMBER AT THE BEDSIDE.
[2018-06-13 09:39] LABS: ALBUMIN 3.4 g/dL (3.4-5.0); ANION GAP 20.3 mmol/L (8-16); BILIRUBIN - TOTAL 0.48 mg/dL (0.2-1.3); CALCIUM 8.8 mg/dL (8.5-10.1); CARBON DIOXIDE 16.9 mmol/L (21.0-32.0); CREATININE - SERUM 1.7 mg/dL (0.6-1.3); POTASSIUM - SERUM 5.2 mmol/L (3.5-5.1); PROTEIN - SERUM 7.1 g/dL (6.4-8.2)
[2018-06-13 09:40] LABS: BASOPHILS 0.2 % (0-2); EOSINOPHILS 3.7 % (0-7); HEMATOCRIT 32.9 % (42.0-54.0); HEMOGLOBIN 10.7 g/dL (13.5-17.5); IMMATURE GRANULOCYTES 0.3 % (0-5); LYMPHOCYTES 15.9 % (15-50); MCH 26.8 pg (26.0-34.0); MCHC 32.5 g/dL (31.0-37.0); MCV 82.5 fL (80.0-100.0); MEAN PLATELET VOLUME 9.1 fL (7.4-10.4); MONOCYTES 10.7 % (2-11); NEUTROPHILS 69.2 % (40-80); PLATELET COUNT 253 10x3/uL (130-400); RBC 3.99 10x6/uL (4.20-6.10); RDW 17.9 % (11.5-14.5); WBC 12.7 10x3/uL (4.8-10.8)
[2018-06-13 12:36] VITALS: BP 137/58
--- NOTE | 2018-06-13 12:46 | NUR ---
PT SITTING UPRIGHT IN BED, RESPIRATIONS EVEN AND UNLABORED. NO SIGNS OF DISTRESS. CALL LIGHT IN REACH. PT DENIES ANY NEEDS. WILL CONTINUE TO MONITOR. PT AWARE THAT URINE SAMPLE IS STILL NEEDED.
--- NOTE | 2018-06-13 12:53 | NUR ---
WILL INITIATE ORDERED ABT ONCE ORDERED BLOOD CULTURES X2 ARE COMPLETED.
--- NOTE | 2018-06-13 13:10 | NUR ---
PT AWARE HE IS BEING ADMITTED TO [facility], CLEAR LIQUID LUNCH TRAY PROVIED AT THIS TIME PER ORDERS.
[2018-06-13 14:00] VITALS: BP 126/63
--- NOTE | 2018-06-13 14:30 | NUR ---
ORDERED MERREM INITIATED AT 1357 COMPLETE AT THIS TIME.
--- NOTE | 2018-06-13 15:10 | NUR ---
ROOM 2207 ASSIGNED AT 1445, REPORT CALLED TO RECEIVING NURSE LUI AT 1504. ROOM DIRTY WHEN ASSIGNED AT 1445, WILL TRANSPORT PT TO ASSIGNED ROOM WHEN CLEAN AND READY.
[2018-06-13 16:15] VITALS: BP 178/62; BMI 26.3
--- NOTE | 2018-06-13 18:14 | MORECARE ---
CASE MANAGEMENT DISCHARGE SUMMARY PATIENT: KAMRAN TERRY UNIT: [id number] ADM DATE: 06/13/18 AGE: 77 : 38 SEX: M ROOM/BED: D.2207 AUTHOR: RADHA HOLLAND PHYSICIAN: REFERRING PHYSICIAN: GERMAINE MELÉNDEZ MD DATE OF SERVICE: 06/13/18 Discharge Plan Patient Name: [facility]AMRAN TERRY [facility] 1940 Planned Disposition: Anticipated Discharge Date: Discharge Date: Expected LOS: Initial Reviewer: [email or web address] Initial Review Date: 06/13/2018 Generated: 06/13/18 7:14 pm DCPIA - Discharge Planning Initial Assessment Updated by [email or web address]: June Blanchard on 06/13/18 6:13 pm * Is the patient Alert and Oriented? Yes * How many steps to enter\exit or inside your home? * PCP Dr. Griffin * Pharmacy [facility] * Preadmission Environment Home with Family * ADLs Independent * Equipment Bedside Commode Cane Crutch Glucometer Grab Bars Rolling Walker Shower Chair Walker Wheelchair * Other Equipment None reported * List name and contact numbers for known caregivers / representatives who currently or will assist patient after discharge: Arlyn Terry ) [phone] * Verbal permission to speak to the caregivers and representatives has been obtained from the patient. Yes * Community resources currently utilized None * Please name any agencies selected above. NA * Additional services required to return to the preadmission environment? No * Can the patient safely return to the preadmission environment? Yes * Has this patient been hospitalized within the prior 30 days at any hospital? No Patient Name: KAMRAN TERRY Page [id number] at 1814 All edits/amendments must be made on the electronic document DICTATION DATE: 06/13/181812 INSERTING OPERATOR: GRAHAM 06/13/181812 RPT#: [id number] DC DATE: STATUS: ADM IN [facility] [address] [place] [address] END OF REPORT
--- NOTE | 2018-06-13 18:28 | MORECARE ---
CASE MANAGEMENT DISCHARGE SUMMARY PATIENT: KAMRAN TERRY UNIT: [id number] ADM DATE: 06/13/18 AGE: 77 : 38 SEX: M ROOM/BED: D.2207 AUTHOR: AMALIA,DOC PHYSICIAN: REFERRING PHYSICIAN: GERMAINE MELÉNDEZ MD DATE OF SERVICE: 06/13/18 Discharge Plan Patient Name: KAMRAN TERRY Facility: [facility]:Candia : 1940 Planned Disposition: Anticipated Discharge Date: Discharge Date: Expected LOS: Initial Reviewer: [email or web address] Initial Review Date: 06/13/2018 Generated: 06/13/18 7:28 pm Comments DCP- Discharge Planning Updated by [email or web address]: June Blanchard on 06/13/18 5:[address] CM met with patient to discuss dc plans/needs. Patient is in agreement to proceed with assessment with present. Patient is alert/oriented, gives permission to complete CM assessment. PCP: Dr. Griffin. Pharmacy: [facility]. Emergency contact: Arlyn Terry () [phone]. Independent/Partial: Independent with all ADL's HHS:NA DME: cane, walker, manual w/c, BSC, shower chair, walk-in tub/shower, Grab bar, Glucometer. Denies the need for additional services and feels safe returning to previous environment: Patient denies being hospitalized within the past 30 days. CM will follow and assist PRN. DCPIA - Discharge Planning Initial Assessment Updated by [email or web address]: June Blanchard on 06/13/18 6:13 pm * Is the patient Alert and Oriented? Yes * How many steps to enter\exit or inside your home? * PCP Dr. Griffin * Pharmacy [facility] * Preadmission Environment Home with Family * ADLs Independent * Equipment Bedside Commode Cane Crutch Glucometer Grab Bars Rolling Walker Shower Chair Walker Wheelchair * Other Equipment None reported * List name and contact numbers for known caregivers / representatives who currently or will assist patient after discharge: Arlyn Terry ) [phone] * Verbal permission to speak to the caregivers and representatives has been obtained from the patient. Yes * Community resources currently utilized None * Please name any agencies selected above. NA * Additional services required to return to the preadmission environment? No * Can the patient safely return to the preadmission environment? Yes * Has this patient been hospitalized within the prior 30 days at any hospital? No Last DP export: 06/13/18 5:14 p Patient Name: KAMRAN TERRY Page [id number] at 1828 All edits/amendments must be made on the electronic document DICTATION DATE: 06/13/181826 DIRECTOR OF AUDIOLOGY: GRAHAM 06/13/181826 RPT#: [id number] DC DATE: STATUS: ADM IN [facility] [address] [place] [address] END OF REPORT
[2018-06-13 18:39] LABS: APPEARANCE CLEAR (CLEAR); BILIRUBIN NEGATIVE (NEGATIVE); COLOR YELLOW (YELLOW); GLUCOSE NEGATIVE (NEGATIVE); KETONE NEGATIVE (NEGATIVE); NITRITE NEGATIVE (NEGATIVE); PROTEIN NEGATIVE (NEGATIVE); UROBILINOGEN NORMAL (NORMAL)
--- NOTE | 2018-06-13 19:02 | MORECARE ---
CASE MANAGEMENT DISCHARGE SUMMARY PATIENT: KAMRAN TERRY UNIT: [id number] ADM DATE: 06/13/18 AGE: 77 : 38 SEX: M ROOM/BED: D.2207 AUTHOR: AMALIA,DOC PHYSICIAN: REFERRING PHYSICIAN: GERMAINE MELÉNDEZ MD DATE OF SERVICE: 06/13/18 Discharge Plan Patient Name: KAMRAN TERRY Facility: [facility]:[place] : 1940 Planned Disposition: Anticipated Discharge Date: Discharge Date: Expected LOS: Initial Reviewer: [email or web address] Initial Review Date: 06/13/2018 Generated: 06/13/18 8:02 pm DCP- Discharge Planning Updated by [email or web address]: June Blanchard on 06/13/18 6:[address] CM met with patient to discuss dc plans/needs. Patient is in agreement to proceed with assessment with present. Patient is alert/oriented, gives permission to complete CM assessment. PCP: Dr. Griffin. Pharmacy: [facility]. Emergency contact: Arlyn Terry () [phone]. Independent/Partial: Independent with all ADL's HHS:NA DME: cane, walker, manual w/c, BSC, shower chair, walk-in tub/shower, Grab bar, Glucometer. Denies the need for additional services and feels safe returning to previous environment. Patient's , Arlyn states she will drive patient home upon discharge. Patient denies being hospitalized within the past 30 days. CM will follow and assist PRN. DCPIA - Discharge Planning Initial Assessment Updated by [email or web address]: June Blanchard on 06/13/18 6:13 pm * Is the patient Alert and Oriented? Yes * How many steps to enter\exit or inside your home? * PCP Dr. Griffin * Pharmacy [facility] * Preadmission Environment Home with Family * ADLs Independent * Equipment Bedside Commode Cane Crutch Glucometer Grab Bars Rolling Walker Shower Chair Walker Wheelchair * Other Equipment None reported * List name and contact numbers for known caregivers / representatives who currently or will assist patient after discharge: Arlyn Terry ) [phone] * Verbal permission to speak to the caregivers and representatives has been obtained from the patient. Yes * Community resources currently utilized None * Please name any agencies selected above. NA * Additional services required to return to the preadmission environment? No * Can the patient safely return to the preadmission environment? Yes * Has this patient been hospitalized within the prior 30 days at any hospital? No Last DP export: 06/13/18 5:28 p Patient Name: KAMRAN TERRY Page [id number] at 1902 All edits/amendments must be made on the electronic document DICTATION DATE: 06/13/181900 [employer] SAL[employer] REPRESENTATIVE: GRAHAM 06/13/181900 RPT#: [id number] DC DATE: STATUS: ADM IN [facility] [address] [place] [address] END OF REPORT
[2018-06-13 20:00] VITALS: BP 156/62
[2018-06-14] VITALS: BP 149/63
[2018-06-14 04:00] VITALS: BP 166/64
[2018-06-14 06:05] LABS: ALBUMIN 2.6 g/dL (3.4-5.0); ANION GAP 16.4 mmol/L (8-16); BILIRUBIN - TOTAL 0.3 mg/dL (0.2-1.3); CALCIUM 8.1 mg/dL (8.5-10.1); CARBON DIOXIDE 17.8 mmol/L (21.0-32.0); MAGNESIUM - SERUM 1.5 mg/dL (1.8-2.4); PHOSPHOROUS 2.9 mg/dL (2.5-4.9); PROTEIN - SERUM 5.7 g/dL (6.4-8.2)
[2018-06-14 06:10] LABS: BASOPHILS 0.2 % (0-2); EOSINOPHILS 5.7 % (0-7); HEMATOCRIT 26.8 % (42.0-54.0); HEMOGLOBIN 8.6 g/dL (13.5-17.5); LYMPHOCYTES 25.4 % (15-50); MCH 26.4 pg (26.0-34.0); MCHC 32.1 g/dL (31.0-37.0); MCV 82.2 fL (80.0-100.0); MEAN PLATELET VOLUME 9.4 fL (7.4-10.4); MONOCYTES 12.3 % (2-11); NEUTROPHILS 56.4 % (40-80); PLATELET COUNT 218 10x3/uL (130-400); RBC 3.26 10x6/uL (4.20-6.10); RDW 18.1 % (11.5-14.5)
[2018-06-14 06:22] LABS: CREATININE - SERUM 1.2 mg/dL (0.6-1.3); POTASSIUM - SERUM 4.2 mmol/L (3.5-5.1)
[2018-06-14 06:38] LABS: WBC 8.4 10x3/uL (4.8-10.8)
[2018-06-14 09:00] VITALS: BP 141/57
--- NOTE | 2018-06-14 09:56 | NUR ---
MORNING ASSESSMENT COMPLETE. SEE ASSESSMENT FLOWSHEET FOR FURTHER DETAILS. PT LYING IN BED AAO X4 TO PERSON, PLACE, TIME, AND SITUATION. DENIES NEEDS AT THSI TIME. CL IN REACH. SIDE RAILS UP X3 FOR PT SAEFTY. BED IN LOWEST POSITION.
[2018-06-14 13:14] VITALS: BP 150/55
[2018-06-14 14:18] VITALS: Ht 182.9 cm; Wt 88.0 kg
[2018-06-14 16:46] VITALS: BP 162/65
[2018-06-14 20:00] VITALS: BP 165/65
--- NOTE | 2018-06-15 00:16 | NUR ---
REC'D.CHGE OF SHIFT SITTING ON SIDE OF BED PULLED IV OUT .DENIES NAUSEA OR ABDOMINAL PAIN AT PRESENT TIME. WILL CONTINUE TO MONITOR FOR ANY CHGES. AND FOLLOW CURRENT PLAN OF CARE.
[2018-06-15 04:00] VITALS: BP 166/64
[2018-06-15 05:35] LABS: BASOPHILS 0.1 % (0-2); HEMATOCRIT 26.7 % (42.0-54.0); HEMOGLOBIN 8.5 g/dL (13.5-17.5); IMMATURE GRANULOCYTES 0.1 % (0-5); LYMPHOCYTES 30.3 % (15-50); MCH 26.1 pg (26.0-34.0); MCHC 31.8 g/dL (31.0-37.0); MCV 81.9 fL (80.0-100.0); MONOCYTES 11.5 % (2-11); PLATELET COUNT 210 10x3/uL (130-400); RBC 3.26 10x6/uL (4.20-6.10); RDW 18.1 % (11.5-14.5); WBC 7.7 10x3/uL (4.8-10.8)
[2018-06-15 05:54] LABS: ALBUMIN 2.6 g/dL (3.4-5.0); ANION GAP 16.6 mmol/L (8-16); BILIRUBIN - TOTAL 0.3 mg/dL (0.2-1.3); CARBON DIOXIDE 18.1 mmol/L (21.0-32.0); CREATININE - SERUM 1.2 mg/dL (0.6-1.3); POTASSIUM - SERUM 3.7 mmol/L (3.5-5.1); PROTEIN - SERUM 5.8 g/dL (6.4-8.2)
--- NOTE | 2018-06-15 06:20 | NUR ---
I have reviewed this patient and I concur with the Shift Assessment completed by the Licensed Practical Nurse today this shift.
--- NOTE | 2018-06-15 08:59 | NUR ---
ALERT AND ORIENTED X 3. LUNGS CLEAR BILATERALLY IN ALL CASTILLO. HEART SOUNDS S1 AND S2 HEARD IN ALL CASTILLO. TELEMETRY IN PLACE. BOWEL SOUNDS ACTIVE X 4. STATES HAVING REGULAR BM. SKIN INTACT WITHOUT REDNESS. IV TO RFA PATENT WITHOUT REDNESS. DENIES PAIN. DENIES FURTHER NEEDS. WILL CONTINUE TO MONITOR.
[2018-06-15 09:20] VITALS: BP 160/66
--- NOTE | 2018-06-15 10:30 | NUR ---
RESTING IN BED. DENIES PAIN. DENIES NEEDS. WILL CONTINUE TO MONITOR.
[2018-06-15 11:00] VITALS: BP 149/65
--- NOTE | 2018-06-15 12:37 | NUR ---
RESTING IN BED. DENIES PAIN. DENIES NEEDS.
[2018-06-15 16:00] VITALS: BP 177/62
--- NOTE | 2018-06-15 16:15 | NUR ---
OT NOTE: PT COMPLETED ADL MOB AND SIT TO STAND WITH CGA. PT COMPLETED TOILETING TASKS AND HYGIENE WITH SBA. 1030/3157 THANK YOU, NAVID LOPEZ
--- NOTE | 2018-06-15 17:37 | NUR ---
SITTING IN BED EATING DINNER. DENIES PAIN. DENIES NEEDS.
[2018-06-15 20:00] VITALS: BP 187/67
--- NOTE | 2018-06-15 20:00 | NUR ---
ALERT RESTING IN BED, NO APPARENT DISTRESS, SEE SHIFT ASSESSMENT, CALL LIGHT IN REACH
[2018-06-15 20:06] LABS: OVA + PARASITE EXAM Final report (())
[2018-06-16] VITALS: BP 171/58
[2018-06-16 04:00] VITALS: BP 173/64
[2018-06-16 04:29] LABS: BASOPHILS 0.1 % (0-2); EOSINOPHILS 0.9 % (0-7); HEMATOCRIT 28.4 % (42.0-54.0); HEMOGLOBIN 9.1 g/dL (13.5-17.5); IMMATURE GRANULOCYTES 0.3 % (0-5); LYMPHOCYTES 29.9 % (15-50); MCH 26.4 pg (26.0-34.0); MCV 82.3 fL (80.0-100.0); MEAN PLATELET VOLUME 9.1 fL (7.4-10.4); MONOCYTES 12.2 % (2-11); NEUTROPHILS 56.6 % (40-80); PLATELET COUNT 195 10x3/uL (130-400); RBC 3.45 10x6/uL (4.20-6.10); RDW 18.3 % (11.5-14.5); WBC 8.6 10x3/uL (4.8-10.8)
[2018-06-16 04:45] LABS: % SATURATION 4 % (15-55); IRON 11 ug/dl (35-150); TOTAL IRON BIND CAPACITY 253 ug/dl (260-445); UNSAT IRON BIND CAPACITY 242 ug/dl (150-375)
[2018-06-16 05:15] LABS: ALBUMIN 2.5 g/dL (3.4-5.0); BILIRUBIN - TOTAL 0.4 mg/dL (0.2-1.3); CALCIUM 8.2 mg/dL (8.5-10.1); CARBON DIOXIDE 18.6 mmol/L (21.0-32.0); CREATININE - SERUM 1.4 mg/dL (0.6-1.3); POTASSIUM - SERUM 3.6 mmol/L (3.5-5.1); PROTEIN - SERUM 5.7 g/dL (6.4-8.2)
--- NOTE | 2018-06-16 07:53 | NUR ---
AWAKE AND ALERT. ORIENTED X3. NO C/O AT THIS TIME. UP TO BR PER SELF. REPORTED A FORMED DARK STOOL. LUNGS ARE CLEAR BILATERALLY, NO COUGH NOTED. SKIN IS INTACT WITHOUT REDNESS. IV TO LEFT FOREARM IS PATENT WITHOUT REDNESS AT INSERTION SITE. DENIES NEEDS. BOWEL SOUNDS PRESENT BUT HYPOACTIVE.
[2018-06-16 08:00] VITALS: BP 170/68
--- NOTE | 2018-06-16 10:51 | NUR ---
UP TO SHOWER WITH SET UP ASSISTANCE. DENIES NEEDS. LINENS CHANGED PER STAFF.
[2018-06-16 12:30] VITALS: BP 170/58
--- NOTE | 2018-06-16 12:30 | NUR ---
CL LUNCH SERVED IN ROOM. REFUSED TO DRINK ANY OF IT. DENIES NEEDS. WANTS REAL FOOD.
--- NOTE | 2018-06-16 15:37 | NUR ---
RESTING QUIETLY IN BED WITH EYES CLOSED. DENIES NEEDS.
[2018-06-16 16:13] VITALS: BP 126/82; BP 155/54
--- NOTE | 2018-06-16 18:22 | NUR ---
ATE ABOUT HALF OF REGULAR DIET. NO C/O PAIN OR NAUSEA WITH FOOD. DENIES NEEDS. NO CHANGES NOTED.
--- NOTE | 2018-06-16 19:30 | NUR ---
PATIENT RUNNING A TEMP OF 101.2. REFUSES TO TURN DOWN HEAT OR PULL BACK THE COVERS. GAVE HIM TYLENOL. WCTM
[2018-06-16 19:50] VITALS: BP 169/56
[2018-06-16 20:51] LABS: APPEARANCE CLEAR (CLEAR); BILIRUBIN NEGATIVE (NEGATIVE); COLOR YELLOW (YELLOW); GLUCOSE NEGATIVE (NEGATIVE); KETONE NEGATIVE (NEGATIVE); NITRITE NEGATIVE (NEGATIVE); PROTEIN TRACE mg/dL (NEGATIVE); SPECIFIC GRAVITY 1.015 (1.005-1.020); UROBILINOGEN NORMAL (NORMAL)
[2018-06-17] VITALS: BP 180/74
--- NOTE | 2018-06-17 02:22 | NUR ---
PATIENT SLEEPING. WCTM. CALL LIGHT AND PHONE IN REACH. TM
[2018-06-17 04:00] VITALS: BP 173/63
[2018-06-17 05:04] LABS: BASOPHILS 0.2 % (0-2); EOSINOPHILS 2.7 % (0-7); HEMATOCRIT 28.6 % (42.0-54.0); HEMOGLOBIN 9.3 g/dL (13.5-17.5); IMMATURE GRANULOCYTES 0.5 % (0-5); LYMPHOCYTES 24.4 % (15-50); MCH 26.3 pg (26.0-34.0); MCHC 32.5 g/dL (31.0-37.0); MONOCYTES 14.1 % (2-11); NEUTROPHILS 58.1 % (40-80); PLATELET COUNT 170 10x3/uL (130-400); RBC 3.53 10x6/uL (4.20-6.10); RDW 18.1 % (11.5-14.5)
[2018-06-17 05:07] LABS: WBC 6.3 10x3/uL (4.8-10.8)
[2018-06-17 05:19] LABS: ALBUMIN 2.4 g/dL (3.4-5.0); ANION GAP 17.1 mmol/L (8-16); BILIRUBIN - TOTAL 0.33 mg/dL (0.2-1.3); CARBON DIOXIDE 16.3 mmol/L (21.0-32.0); CREATININE - SERUM 1.3 mg/dL (0.6-1.3); POTASSIUM - SERUM 3.4 mmol/L (3.5-5.1); PROTEIN - SERUM 5.6 g/dL (6.4-8.2)
--- NOTE | 2018-06-17 07:15 | NUR ---
PATIENT RECIEVED RESTING IN BED. ADMITTED FOR COLITIS, N/V/D. CONTINUES TO HAVE DIARRHEA, BUT N/V RESOLVED WITH PATIENT TOLERATING REGULAR DIET
[2018-06-17 08:24] VITALS: BP 185/76
[2018-06-17 12:31] VITALS: BP 176/66
--- NOTE | 2018-06-17 14:33 | NUR ---
NOTIFIED DR JARVIS OF POSITIVE OCCULT STOOL RESULTS
[2018-06-17 17:49] VITALS: BP 165/72
[2018-06-17 20:00] VITALS: BP 160/69
[2018-06-18] VITALS: BP 158/71
[2018-06-18 05:28] LABS: BASOPHILS 0.2 % (0-2); EOSINOPHILS 4.1 % (0-7); HEMATOCRIT 25.7 % (42.0-54.0); HEMOGLOBIN 8.3 g/dL (13.5-17.5); IMMATURE GRANULOCYTES 0.6 % (0-5); LYMPHOCYTES 33.8 % (15-50); MCH 26.3 pg (26.0-34.0); MCHC 32.3 g/dL (31.0-37.0); MCV 81.3 fL (80.0-100.0); MEAN PLATELET VOLUME 9.2 fL (7.4-10.4); MONOCYTES 10.7 % (2-11); NEUTROPHILS 50.6 % (40-80); PLATELET COUNT 162 10x3/uL (130-400); RBC 3.16 10x6/uL (4.20-6.10); RDW 18.1 % (11.5-14.5); WBC 6.3 10x3/uL (4.8-10.8)
[2018-06-18 06:06] LABS: ALBUMIN 2.1 g/dL (3.4-5.0); ALKALINE PHOSPHATASE 41 U/L (46-116); ALT (SGPT) 25 U/L (10-68); BILIRUBIN - TOTAL 0.35 mg/dL (0.2-1.3); CALCIUM 7.8 mg/dL (8.5-10.1); CHLORIDE - SERUM 113 mmol/L (98-107); POTASSIUM - SERUM 3.4 mmol/L (3.5-5.1); PROTEIN - SERUM 4.7 g/dL (6.4-8.2); SODIUM 142 mmol/L (136-145); UREA NITROGEN 9 mg/dL (7-18); eGFR NON AFRICAN AMERICAN 76 mL/min (90-120)
[2018-06-18 06:08] LABS: CALC OSMOLALITY 281 mosm/kg (275-300); GLUCOSE 90 mg/dL (74-106)
[2018-06-18 06:09] LABS: CARBON DIOXIDE 21.4 mmol/L (21.0-32.0)
--- NOTE | 2018-06-18 07:05 | NUR ---
PATIENT RECIEVED RESTING IN BED. PATIENT ADMITTED FOR COLITIS, N/V/D. CONTINUES TO HAVE DIARRHEA, BUT N/V RESOLVED. NO NEEDS VOICED AT THIS TIME.
[2018-06-18 09:22] VITALS: BP 188/66
--- NOTE | 2018-06-18 16:15 | NUR ---
UNABLE TO FLUSH IV, RESITED TO LEFT UPPER ARM.
[2018-06-18 17:18] VITALS: BP 192/70
[2018-06-18 20:00] VITALS: BP 181/70
[2018-06-19] VITALS: BP 176/61
[2018-06-19 03:00] VITALS: BP 161/66
[2018-06-19 05:03] LABS: BASOPHILS 0.3 % (0-2); EOSINOPHILS 4.3 % (0-7); HEMOGLOBIN 8.3 g/dL (13.5-17.5); IMMATURE GRANULOCYTES 0.6 % (0-5); LYMPHOCYTES 32.1 % (15-50); MCH 25.9 pg (26.0-34.0); MCHC 31.9 g/dL (31.0-37.0); MCV 81.3 fL (80.0-100.0); MEAN PLATELET VOLUME 9.5 fL (7.4-10.4); MONOCYTES 8.6 % (2-11); NEUTROPHILS 54.1 % (40-80); PLATELET COUNT 181 10x3/uL (130-400); RDW 17.9 % (11.5-14.5); WBC 6.8 10x3/uL (4.8-10.8)
[2018-06-19 05:47] LABS: ALBUMIN 2.1 g/dL (3.4-5.0); ANION GAP 12.2 mmol/L (8-16); BILIRUBIN - TOTAL 0.41 mg/dL (0.2-1.3); CALCIUM 8.1 mg/dL (8.5-10.1); CARBON DIOXIDE 22.4 mmol/L (21.0-32.0); CREATININE - SERUM 1.1 mg/dL (0.6-1.3); POTASSIUM - SERUM 3.6 mmol/L (3.5-5.1); PROTEIN - SERUM 4.9 g/dL (6.4-8.2)
--- NOTE | 2018-06-19 07:37 | NUR ---
ALERT AND ORIENTED X 3. LUNGS CLEAR BILATERALLY IN ALL CASTILLO. HEART SOUNDS S1 AND S2 HEARD IN ALL CASTILLO. TELEMETRY IN PLACE. BOWEL SOUNDS ACTIVE X 4. SKIN INTACT WITHOUT REDNESS. IV TO PAMELA PATENT WITHOUT REDNESS. DENIES PAIN. DENIES NEEDS. BED LOW. CALL [place] AND PERSONAL ITEMS IN REACH. WILL CONTINUE TO MONITOR.
[2018-06-19 08:46] VITALS: BP 182/65
--- NOTE | 2018-06-19 10:05 | NUR ---
RESTING IN BED. DENIES PAIN. DENIES NEEDS.
--- NOTE | 2018-06-19 11:29 | NUR ---
RESTING IN BED. DENIES NEEDS
--- NOTE | 2018-06-19 13:09 | NUR ---
NUTRITION F/U CHART REVIEWED, PT VISIT. DIET ADVANCED TO REG WITH ~ 25% INTAKE RECENT MEALS. WILL CONTINUE TO HONOR FOOD PREFERENCES, MONITOR PO INTAKE. RD FOLLOWING
[2018-06-19 13:46] VITALS: BP 185/69
--- NOTE | 2018-06-19 14:18 | NUR ---
RESTING IN BED. DENIES NEEDS
--- NOTE | 2018-06-19 16:57 | NUR ---
RESTING IN BED. DENIES PAIN. DENIES NEEDS.
[2018-06-19 18:12] VITALS: BP 177/60
--- NOTE | 2018-06-19 18:38 | NUR ---
RESTING. DENIES NEEDS
[2018-06-19 20:00] VITALS: BP 179/66
--- NOTE | 2018-06-19 21:25 | NUR ---
A&O, DENIES PAIN. AMBULATED TO RESTROOM INDEPENDENTLY. DENIES NEEDS, STATES HE'S READY TO GO HOME. WILL CONTINUE TO MONITOR.
[2018-06-20] VITALS: BP 181/68
--- NOTE | 2018-06-20 04:41 | NUR ---
I have reviewed this patient and I concur with the Shift Assessment completed by the Licensed Practical Nurse today this shift.
[2018-06-20 05:04] LABS: BASOPHILS 0.4 % (0-2); EOSINOPHILS 4.8 % (0-7); HEMOGLOBIN 8.9 g/dL (13.5-17.5); IMMATURE GRANULOCYTES 0.6 % (0-5); LYMPHOCYTES 34.3 % (15-50); MCH 25.8 pg (26.0-34.0); MCHC 31.8 g/dL (31.0-37.0); MCV 81.2 fL (80.0-100.0); MEAN PLATELET VOLUME 9.4 fL (7.4-10.4); MONOCYTES 8.4 % (2-11); NEUTROPHILS 51.5 % (40-80); PLATELET COUNT 200 10x3/uL (130-400); RBC 3.45 10x6/uL (4.20-6.10); RDW 17.9 % (11.5-14.5); WBC 8.1 10x3/uL (4.8-10.8)
[2018-06-20 05:34] LABS: ANION GAP 14.2 mmol/L (8-16); CARBON DIOXIDE 21.2 mmol/L (21.0-32.0); CREATININE - SERUM 1.3 mg/dL (0.6-1.3); POTASSIUM - SERUM 3.4 mmol/L (3.5-5.1)
[2018-06-20 09:15] VITALS: BP 193/66
[2018-06-20 13:50] VITALS: BP 191/70
--- NOTE | 2018-06-20 16:03 | NUR ---
STERNMAN NOTE-NO COMPLAINTS OF ABDOMINAL PAIN OR DIARRHEA. STATES I JUST WENT NORMAL SINCE RADHA BEEN HER. FALL PRECAUTIONS IN PLACE. IV NOTED TO LEFT UPPER ARM WITHOUT REDDNESS OR EDEMA. CALL LIGHT IN REACH
[2018-06-20 19:01] VITALS: BP 185/63
--- NOTE | 2018-06-20 20:00 | NUR ---
A&O X 4. STATES HE'S EXCITED, THE DOCTOR TOLD HIM HE COULD BE DISCHARGED TOMORROW. DENIES PAIN. IV TO LEFT UPPER ARM INFUSING, NO REDNESS OR SWELLING AROUND INSERTION SITE. REINFORCED WITH TAPE PER PT REQUEST. DENIES FURTHER NEEDS AT THIS TIME, WILL CONTINUE TO MONITOR.
[2018-06-20 20:41] VITALS: BP 195/64
[2018-06-21 00:57] VITALS: BP 132/72
--- NOTE | 2018-06-21 05:48 | NUR ---
I have reviewed this patient and I concur with the Shift Assessment completed by the Licensed Practical Nurse today this shift.
[2018-06-21 05:54] VITALS: BP 162/69
[2018-06-21 06:06] LABS: BASOPHILS 0.3 % (0-2); EOSINOPHILS 6.7 % (0-7); HEMATOCRIT 26.5 % (42.0-54.0); HEMOGLOBIN 8.6 g/dL (13.5-17.5); IMMATURE GRANULOCYTES 0.7 % (0-5); LYMPHOCYTES 27.1 % (15-50); MCH 26.5 pg (26.0-34.0); MCHC 32.5 g/dL (31.0-37.0); MCV 81.5 fL (80.0-100.0); MEAN PLATELET VOLUME 9.4 fL (7.4-10.4); NEUTROPHILS 57.2 % (40-80); PLATELET COUNT 197 10x3/uL (130-400); RBC 3.25 10x6/uL (4.20-6.10); RDW 17.9 % (11.5-14.5); WBC 7.6 10x3/uL (4.8-10.8)
[2018-06-21 06:20] LABS: ANION GAP 14.2 mmol/L (8-16); CALCIUM 8.2 mg/dL (8.5-10.1); CARBON DIOXIDE 22.4 mmol/L (21.0-32.0); CREATININE - SERUM 1.1 mg/dL (0.6-1.3); POTASSIUM - SERUM 3.6 mmol/L (3.5-5.1)
[2018-06-21 08:55] VITALS: BP 186/69
--- NOTE | 2018-06-21 10:56 | NUR ---
AT BEDSIDE. STATES HE IS READY TO SIGN THE PAPERS FOR DISCHARGE. NEED A UA. WCTM
[2018-06-21 12:19] LABS: APPEARANCE CLEAR (CLEAR); BILIRUBIN NEGATIVE (NEGATIVE); COLOR YELLOW (YELLOW); GLUCOSE NEGATIVE (NEGATIVE); KETONE NEGATIVE (NEGATIVE); NITRITE NEGATIVE (NEGATIVE); PROTEIN NEGATIVE (NEGATIVE); UROBILINOGEN NORMAL (NORMAL)
[2018-06-21 13:36] VITALS: BP 157/75
[2018-06-21] MEDS ORDERED: LEVAQUIN750 MG PO ×2 (14:17→14:19)
[2018-06-21] MEDS ORDERED: FLAGYL500 MG PO ×2 (14:18→14:19)
--- NOTE | 2018-06-21 15:27 | MORECARE ---
CASE MANAGEMENT DISCHARGE SUMMARY PATIENT: KAMRAN TERRY UNIT: [id number] ADM DATE: 06/13/18 AGE: 77 : 38 SEX: M ROOM/BED: D.2207 AUTHOR: AMALIA,DOC PHYSICIAN: REFERRING PHYSICIAN: GERMAINE MELÉNDEZ MD DATE OF SERVICE: 06/21/18 Discharge Plan Patient Name: KAMRAN TERRY Facility: [facility]:[place] : 1940 Planned Disposition: Anticipated Discharge Date: Discharge Date: Expected LOS: Initial Reviewer: [email or web address] Initial Review Date: 06/13/2018 Generated: 06/21/18 4:27 pm Comments DCP- Discharge Planning Updated by [email or web address]: Jennifer London on 06/21/18 2:[address] patient will be discharging home today, at bedside. denies any needs. IMM served and explained. CM to follow as needed DCP- Discharge Planning Updated by [email or web address]: June Blanchard on 06/13/18 6:[address] CM met with patient to discuss dc plans/needs. Patient is in agreement to proceed with assessment with present. Patient is alert/oriented, gives permission to complete CM assessment. PCP: Dr. Griffin. Pharmacy: [facility]. Emergency contact: Arlyn Terry () [phone]. Independent/Partial: Independent with all ADL's HHS:NA DME: cane, walker, manual w/c, BSC, shower chair, walk-in tub/shower, Grab bar, Glucometer. Denies the need for additional services and feels safe returning to previous environment. Patient's , Arlyn states she will drive patient home upon discharge. Patient denies being hospitalized within the past 30 days. CM will follow and assist PRN. DCPIA - Discharge Planning Initial Assessment Updated by [email or web address]: June Blanchard on 06/13/18 6:13 pm * Is the patient Alert and Oriented? Yes * How many steps to enter\exit or inside your home? * PCP Dr. Griffin * Pharmacy [facility] * Preadmission Environment Home with Family * ADLs Independent * Equipment Bedside Commode Cane Crutch Glucometer Grab Bars Rolling Walker Shower Chair Walker Wheelchair * Other Equipment None reported * List name and contact numbers for known caregivers / representatives who currently or will assist patient after discharge: Arlyn Terry ) [phone] * Verbal permission to speak to the caregivers and representatives has been obtained from the patient. Yes * Community resources currently utilized None * Please name any agencies selected above. NA * Additional services required to return to the preadmission environment? No * Can the patient safely return to the preadmission environment? Yes * Has this patient been hospitalized within the prior 30 days at any hospital? No Coverage Notice Reviewer: [email or web address] Ashley London Notice Issued Date-Time: 06/21/2018 15:15 Notice Type: IM Discharge Notice Notice Delivered To: Patient Relationship to Patient: Spouse Director Of Email Marketing Name: arlyn Delivery Method: HAND - Hand Delivered Etelvina Days: Prior Verbal Notification: Recipient Understood Notice: Yes Recipient Signature: Yes Med Rec Note Co-signed by Attending: Coverage Notice Comment: Last DP export: 06/13/18 6:02 p Patient Name: KAMRAN TERRY Page [id number] at 1527 All edits/amendments must be made on the electronic document DICTATION DATE: 06/21/181525 SEWING MACHINE REPAIRER HELPER: GRAHAM 06/21/181525 RPT#: [id number] DC DATE: STATUS: ADM IN [facility] [address] [place] [address] END OF REPORT
--- NOTE | 2018-06-21 15:33 | NUR ---
DISCHARGE INSTRUCTIONS GIVEN. PATIENT AND VERBALIZED UNDERSTANDING. IV THERAPY REMOVED WITH TIP INTACT.
--- NOTE | 2018-06-21 15:36 | NUR ---
OT NOTE: PT COMPLETED BED MOB WITH SPV. PT COMPLETED EOB SITTING BALANCE WITH SPV. PT COMPLETED SIT TO STAND WITH SPV. PT COMPLETED BUE AROM EXS AT EOB WITH SPV. THANK YOU, NAVID LOPEZ
--- NOTE | 2018-06-23 14:17 | MORECARE ---
CASE MANAGEMENT DISCHARGE SUMMARY PATIENT: KAMRAN TERRY UNIT: [id number] ADM DATE: 06/13/18 AGE: 77 : 38 SEX: M ROOM/BED: D.2207 AUTHOR: AMALIA,DOC PHYSICIAN: REFERRING PHYSICIAN: GERMIANE MELÉNDEZ MD DATE OF SERVICE: 06/23/18 Discharge Plan Patient Name: KAMRAN TERRY Facility: [facility]:[place] : 1940 Planned Disposition: Anticipated Discharge Date: Discharge Date: 06/21/2018 Expected LOS: 0 Initial Reviewer: [email or web address] Initial Review Date: 06/13/2018 Generated: 06/23/18 3:16 pm Comments DCP- Discharge Planning Updated by [email or web address]: Jennifer London on 06/21/18 2:[address] patient will be discharging home today, at bedside. denies any needs. IMM served and explained. CM to follow as needed DCP- Discharge Planning Updated by [email or web address]: June Blanchard on 06/13/18 6:[address] CM met with patient to discuss dc plans/needs. Patient is in agreement to proceed with assessment with present. Patient is alert/oriented, gives permission to complete CM assessment. PCP: Dr. Griffin. Pharmacy: [facility]. Emergency contact: Arlyn Terry () [phone]. Independent/Partial: Independent with all ADL's HHS:NA DME: cane, walker, manual w/c, BSC, shower chair, walk-in tub/shower, Grab bar, Glucometer. Denies the need for additional services and feels safe returning to previous environment. Patient's , Arlyn states she will drive patient home upon discharge. Patient denies being hospitalized within the past 30 days. CM will follow and assist PRN. DCPIA - Discharge Planning Initial Assessment Updated by [email or web address]: June Blanchard on 06/13/18 6:13 pm * Is the patient Alert and Oriented? Yes * How many steps to enter\exit or inside your home? * PCP Dr. Griffin * Pharmacy [facility] * Preadmission Environment Home with Family * ADLs Independent * Equipment Bedside Commode Cane Crutch Glucometer Grab Bars Rolling Walker Shower Chair Walker Wheelchair * Other Equipment None reported * List name and contact numbers for known caregivers / representatives who currently or will assist patient after discharge: Arlyn Terry ) [phone] * Verbal permission to speak to the caregivers and representatives has been obtained from the patient. Yes * Community resources currently utilized None * Please name any agencies selected above. NA * Additional services required to return to the preadmission environment? No * Can the patient safely return to the preadmission environment? Yes * Has this patient been hospitalized within the prior 30 days at any hospital? No Coverage Notice Reviewer: [email or web address] Ashley London Notice Issued Date-Time: 06/21/2018 15:15 Notice Type: IM Discharge Notice Notice Delivered To: Patient Relationship to Patient: Spouse Dishwasher Preparer Name: arlyn Delivery Method: HAND - Hand Delivered Etelvina Days: Prior Verbal Notification: Recipient Understood Notice: Yes Recipient Signature: Yes Med Rec Note Co-signed by Attending: Coverage Notice Comment: Last DP export: 06/21/18 2:27 pm Patient Name: KAMRAN TERRY Page [id number] at 1417 All edits/amendments must be made on the electronic document DICTATION DATE: 06/23/181415 FLAT CLOTHIER: GRAHAM 06/23/181415 RPT#: [id number] DC DATE:06/21/18 STATUS: DIS IN [facility] [address] [place] [address] END OF REPORT
== END 2018-06-21 15:45 | disposition home or self-care (01) | DRG 872 ==
LOC: D.ER 08:49 → D.EDHOLD 12:48 → D.MS 12:48
PROVIDERS: Family Medicine; Internal Medicine Gastroenterology; Internal Medicine Nephrology; ADMIT Family Medicine; ATTEND Family Medicine
DX: A41.9 Sepsis, unspecified organism (principal); A09 Infectious gastroenteritis and colitis, unspecified; I13.0 Hypertensive heart and chronic kidney disease with heart failure and stage 1 through stage 4 chronic kidney disease, or unspecified chronic kidney disease; I50.22 Chronic systolic (congestive) heart failure; R11.2 Nausea with vomiting, unspecified; E86.0 Dehydration; E78.5 Hyperlipidemia, unspecified; N18.3 Chronic kidney disease, stage 3 (moderate); E11.22 Type 2 diabetes mellitus with diabetic chronic kidney disease; E11.65 Type 2 diabetes mellitus with hyperglycemia; Z79.84 Long term (current) use of oral hypoglycemic drugs; E87.5 Hyperkalemia; K21.9 Gastro-esophageal reflux disease without esophagitis

== ENCOUNTER → 2018-07-19 07:36 | Outpatient (CLI) | payer MEDICARE, OTHER ==
[2018-06-14 14:18] VITALS: BMI 26.3
[~2018-07-19 07:36] MED LIST changes: +FLAGYL500 MG PO; +LEVAQUIN750 MG PO
== END | disposition home or self-care (01) ==
LOC: D.CT 07:36
PROVIDERS: ATTEND Orthopaedic Surgery
DX: I73.9 Peripheral vascular disease, unspecified (principal)

== ENCOUNTER 2018-08-21 09:56 | Outpatient (CLI) | payer MEDICARE, OTHER ==
[~2018-08-21] VITALS: Ht 182.9 cm; Wt 85.5 kg
--- NOTE | ~2018-08-21 | HEMODYNAMI ---
PATIENT:KAMRAN XAVIER MEDICAL RECORD: [id number] : 36 [id number] ADMISSION DATE: 08/21/18 Generatedon:08/21/201815:11 Patient name: KAMRAN XAVIER Patient #: [id number] SS N: : 1940 Date of study: 08/21/2018 Page: Of Hemodynamic Procedure Report Patient Data Patient Demographics Procedure consent was obtained First Name: KAMRAN Gender: Male Last Name: DUC : 1940 [facility] Initial: C Age: 77 year(s) Patient #: [id number] Race: Additional ID: [id number] Contact details Address: [place] [address] State: [facility] Zip code: [address] Past Medical History History of disease Date Diagnosis Comments CAD Hypertension Diabetes Allergies: No known allergies Admission Admission Data Admission Date: 08/21/2018 Admission Time: 9:56 Procedure Procedure Types Cath Procedure Peripheral Cath Diagnostic Procedure Abd/Extremity Extremities AFRO Lower Ext Arterio Procedure Description Procedure Date Procedure Date: 08/21/2018 Procedure Start Time: 13:55 Procedure Staff Name Function Farhat Franco MD Performing Physician Tanvir Zaldivar RT Monitor DAVID SARGENT RT Scrub Samira Solis RN Nurse Procedure Data Cath Procedure Fluoroscopy Diagnostic fluoroscopy Total fluoroscopy Time: 11 time: 11 min min Diagnostic fluoroscopy Total fluoroscopy dose: 836 dose: 836 mGy mGy Contrast Material Contrast Material Type Amount (ml) Isovue 300 140 Entry Location Entry Primary Successful Side Size Upsize 1 Upsize Entry Closure Ball ccessful Closure Location (Fr) (Fr) 2 (Fr) Remarks Device Remarks Femoral Right 5 Fr 6 Fr artery Mid-Length Diagnostic catheters Device Type Used For End Catheter Placement Merit UHF Pigtail VESSEL SIZING 5Fr 65CM catheter ([id number]) Procedure Medications Medication Administration Route Dosage Heparin Flush Bag added to field 3 bags (1000units/500ml NS) Lidocaine 1% added to field 20 Fentanyl I.V. 25 mcg Versed I.V. 0.5 mg Fentanyl I.V. 25 mcg Versed I.V. 0.5 mg Versed I.V. 0.5 mg Fentanyl I.V. 25 mcg Heparin Bolus I.V. 5000 units Versed I.V. 0.5 mg Fentanyl I.V. 25 mcg Hemodynamics Rest Heart Rate: 102 (bpm) Snapshots Pre Cath Intra NCS Post Cath Vital Signs Time Heart Resp SPO2 etCO2 NIBP (mmHg) Rhythm Pain Sedation Rate (ipm) (%) (mmHg) Status Level (bpm) 13:37:34 61 9 100 28.4 176/78(148) NSR 0 (11) 10(A) , No pain 13:42:33 59 9 100 26.9 Measuring NSR 0 (11) 10(A) , No pain 13:43:14 65 15 100 24.7 180/85(139) NSR 0 (11) 10(A) , No pain 13:47:44 60 8 100 29.2 175/78(148) NSR 0 (11) 10(A) , No pain 13:52:12 60 9 100 29.2 176/78(145) NSR 0 (11) 10(A) , No pain 13:56:39 59 10 100 29.2 181/82(137) NSR 0 (11) 10(A) , No pain 14:01:13 60 14 100 28.4 175/68(137) NSR 0 (11) 8(A) , No pain 14:05:29 59 15 98 27.7 161/69(130) NSR 0 (11) 8(A) , No pain 14:09:51 60 12 98 31.4 169/77(138) NSR 0 (11) 8(A) , No pain 14:14:18 60 11 100 30.7 167/71(129) NSR 0 (11) 8(A) , No pain 14:18:44 60 9 100 30.7 165/72(125) NSR 0 (11) 8(A) , No pain 14:23:10 59 10 100 32.2 164/70(131) NSR 0 (11) 8(A) , No pain 14:28:09 60 12 100 31.4 Measuring NSR 0 (11) 8(A) , No pain 14:28:15 60 12 100 32.2 177/73(146) NSR 0 (11) 8(A) , No pain 14:32:46 60 10 100 1.4 164/67(129) NSR 0 (11) 8(A) , No pain 14:37:12 60 10 100 13.4 166/69(123) NSR 0 (11) 8(A) , No pain 14:41:42 61 9 100 30.7 153/65(120) NSR 0 (11) 8(A) , No pain 14:46:04 58 10 100 30.7 170/74(133) NSR 0 (11) 8(A) , No pain 14:50:29 60 10 100 30.7 184/84(148) NSR 0 (11) 8(A) , No pain 14:54:59 59 10 100 24.7 172/81(132) NSR 0 (11) 8(A) , No pain 14:59:27 60 10 100 23.2 175/74(146) NSR 0 (11) 8(A) , No pain 15:03:54 60 11 100 32.9 187/84(143) NSR 0 (11) 8(A) , No pain 15:08:28 59 15 100 20.9 165/73(126) NSR 0 (11) 8(A) , No pain Medications Time Medication Route Dose Verified Delivered Reason Notes Effec tiveness by by 13:55:23 Heparin Flush added 3 Farhat Dougherty used for Bag to bags Salvador Franco MD procedure (1000units/500ml field RANGEL NS) 13:55:41 Lidocaine 1% added 20ml Farhat Dougherty used for to vial Salvador Franco MD procedure field RANGEL 14:00:28 Fentanyl I.V. 25 Farhat Hogan for mcg Will Franco RN sedation 14:00:41 Versed I.V. 0.5 Farhat Parsonsi for mg Will Franco RN sedation 14:09:02 Fentanyl I.V. 25 Farhat Parsonsi for mcg Will Franco RN sedation 14:09:14 Versed I.V. 0.5 Farhat Parsonsi for mg Will Franco RN sedation 14:26:18 Versed I.V. 0.5 Farhat Parsonsi for mg Will Franco RN sedation 14:26:27 Fentanyl I.V. 25 Farhat Hogan for mcg Will Franco RN sedation 14:28:05 Heparin Bolus I.V. 5000 Farhat Hogan used for units Will Franco RN procedure 14:51:54 Versed I.V. 0.5 Farhat Hogan for mg Will Franco RN sedation 14:52:02 Fentanyl I.V. 25 Farhat Hogan for mcg Will Franco RN sedation Procedure Log Time Note 13:28:51 Tanvir Zaldivar RT (R) (CV) sent for patient. Start room use. 13:28:58 Time tracking: Regular hours (M-F 7:00 - 5:00) 13:29:04 Plan of Care:Hemodynamics will remain stable., Cardiac rhythm will remain stable., Comfort level will be maintained., Respiratory function will remain adequate., Patient/ family verbilizes understanding of procedure., Procedure tolerated without complication., Recovers from procedure without complications.. 13:29:10 Patient received from Outpatients to IR Alert and oriented. Tansferred to table in Supine position. 13:29:11 Correct patient and procedure confirmed by team. 13:29:13 Signed procedure consent form obtained from patient. 13:29:15 ECG and BP/O2 sat monitors applied to patient. 13:29:20 Use device set IR Diagnostic 13:29:21 ACIST Syringe (57052) opened to sterile field. 13:29:21 ACIST Hand Control (89973) opened to sterile field. 13:29:21 ACIST Manifold (17180) opened to sterile field. 13:29:22 Bag Decanter (2001S) opened to sterile field. 13:29:22 Sterile Angiographic Pack opened to sterile field. 13:29:22 Tegaderm 4 x 4 (1626W) opened to sterile field. 13:29:26 Full Disclosure recording started 13:29:26 - 13:29:32 H&P Date Dictated: 08/21/2018 H&P Addendum completed by physician on day of procedure. (MUST COMPLETE FOR ALL OUTPATIENTS). ::34 Pre-procedure instructions explained to patient. ::34 Pre-op teaching completed and patient verbalized understanding. ::36 Family in waiting room. ::38 Patient NPO since Midnight. 13::43 Is the patient allergic to Iodine/contrast media? No. 13:30:42 Is patient on blood thinner?No 13::45 Patient diabetic? No. 13:30:47 - 13:30:47 - 13:30:48 ----Pre-sedation anethsthesia assessment.---- 13:30:51 Previous problem with sedation/anesthesia? No ? 13:30:55 Snore? Yes 13:30:56 Sleep apnea? No 13:31:00 Deviated septum? No 13:31:01 Opens mouth fully? Yes 13:31:02 Sticks out tongue? Yes 13:31:05 Airway obstruction? No ? 13:31:06 Dentures? Yes ? 13:31:07 - 13:36:18 Baseline sample Acquired. 13:36:18 Vital chart was started 13:36:25 Pre procedure: right dorsailis pedis pulse Doppler 13:36:27 Pre procedure: left dorsailis pedis pulse Doppler 13:36:30 Pre procedure: right posterior tibial pulse Doppler 13:36:35 Pre procedure: left posterior tibial pulse Doppler 13:36:40 IV patent on arrival in left forearm with 0.9% NaCl at O. 13:36:44 Sharps counted by scrub and verified by R.N. 13:36:45 Alarms reviewed by R. N. 13:36:48 Bilateral groins area was prepped with chlora-prep and draped in steril e fashion 13:55:13 Physician arrived 13:55:14 --------ALL STOP TIME OUT------ 13:55:15 Final Timeout: patient, procedure, and site verified with staff and physician. All members of the team are in agreement. 13:55:17 Bilateral groins site verified by team. 13:55:21 Fire Safety Assessment: A--An alcohol-based skin anteseptic being used preoperatively., C--Open oxygen or nitrous oxide is being used. 13:55:23 Heparin Flush Bag (1000units/500ml NS) 3 bags added to field was administered by Farhat Franco MD; used for procedure; 13:55:25 Sedation plan: IV Moderate Sedation Medication:Versed, Fentanyl 13:55:36 Procedure started. 13:55:40 Local anesthetic to right femoral artery with Lidocaine 1% by Farhat Franco MD.INITIAL ACCESS ONLY 13:55:41 Lidocaine 1% 20ml vial added to field was administered by Farhat Franco MD; used for procedure; 13:55:43 TUBING Contrast Injection High Pressure (SPH189P) opened to sterile field. 13:55:43 Micropuncture VSI 4FR kit opened to sterile field. 13:55:43 SHEATH 5FR [place] (AZK650) opened to sterile field. 13:55:44 DOC .035 wire (Z36273) opened to sterile field. 13:55:44 Angiodynamics Omniflush 5Fr 65cm (59522633) opened to sterile field. 13:55:48 Access obtained with 4Fr micropunture. 13:55:58 A 5 Fr sheath was inserted into the Right Femoral artery 14:00:28 Fentanyl 25 mcg I.V. was administered by Samira Solis RN; for sedation; 14:00:41 Versed 0.5 mg I.V. was administered by Samira Solis RN; for sedation; 14:04:09 GLIDE CATHETER 5FR ANGLED 65cm (CG507) opened to sterile field. 14:05:49 GLIDE WIRE ANGLE 180cm (ZM3852) opened to sterile field. 14:05:57 TORQUE DEVICE PLASTIC .038 ( TD01) opened to sterile field. 14:07:27 ROADRUNNER .035 145 glide wire (Q00247) opened to sterile field. 14:09:02 Fentanyl 25 mcg I.V. was administered by Samira Solis RN; for sedation; 14:09:14 Versed 0.5 mg I.V. was administered by Samira Solis RN; for sedation; 14:24:28 SHEATH 7FR X 25CM RADIOPAUQE PINNICALE (ZJJ407) opened to sterile field . 14:24:33 Sheath upsized to a 6 Fr Mid-Length. 14:26:18 Versed 0.5 mg I.V. was administered by Samira Solis RN; for sedation; 14:26:27 Fentanyl 25 mcg I.V. was administered by Samira Solis RN; for sedation; 14:26:58 CXI Catheter 90cm (V13399) opened to sterile field. 14:28:05 Heparin Bolus 5000 units I.V. was administered by Samira Solis RN; used for procedure; 14:30:26 INFLATOR BasixTOUCH (HB7769) opened to sterile field. 14:32:33 A [facility] Pigtail VESSEL SIZING 5Fr 65CM catheter ([id number]) was advanced over the wire and used for . 14:32:34 WELLS 260 wire (J96544) opened to sterile field. 14:33:57 Inflate balloon Inflation number: 1 A Evercross 3 x 6 x 135 Balloon ([id number]) was prepped and advanced across the Undefined1 , then inflated to 20 WALLY for 0:07 (min:sec) . 14:36:38 Inflate balloon Inflation number: 2 A [place]cross 4 x 6 x 135 Balloon ([id number]) was prepped and advanced across the Undefined1 , then inflated to 20 WALLY for 0:55 (min:sec) . 14:43:07 SHEATH 7FR X 25CM RADIOPAUQE PINNICALE (HBF443) opened to sterile field . 14:46:58 Place stent Inflation Number: 3 A Visipro 10 x 57 x 135 Stent ([id number]) was prepped and advanced across the Undefined1 . The stent was deployed at 0 WALLY for 0:00 (min:sec) . 14:51:54 Versed 0.5 mg I.V. was administered by Samira Solis RN; for sedation; 14:52:02 Fentanyl 25 mcg I.V. was administered by Samira Solis RN; for sedation; 15:01:41 EXOSEAL 7Fr (EX700) opened to sterile field. 15:01:46 Procedure ended.(Physican Out) 15:02:08 Fluoroscopy time 11.00 minutes. 15:02:12 Flurop Dose total: 836 15:02:12 Fluoroscopy dose: 836 mGy 15:02:16 Contrast amount:Isovue 300 140ml. 15:02:18 Sharps counted by scrub and verified by R.N. 15:02:19 Insertion/operative site no bleeding no hematoma. 15:02:22 Post-op/insertion site Right Femoral artery dressed using a 4 x 4 and Tegaderm. 15:02:26 Post right femoral artery:stable 15:02:32 Post Procedure Pulses reassessed and unchanged 15:02:34 Post procedure instruction explained to patient.Patient verbalizes understanding. 15:02:35 Procedure and supply charges have been captured, reviewed, submitted an d are correct. 15:11:23 Report given to Outpatients. 15:11:26 Patient transfered to Outpatients with Stretcher. 15:11:47 Vital chart was stopped Intervention Summary Intervention Notes Time ActionType Lesion and Equipment Used Action# Pressure Duration Attributes 14:33:57 Inflate Undefined1 Evercross 3 x 6 x 1 20 00:07 balloon 135 Balloon ([id number]) 14:36:38 Inflate Undefined1 Evercross 4 x 6 x 2 20 00:55 balloon 135 Balloon ([id number]) 14:46:58 Place stent Undefined1 Visipro 10 x 57 x 3 0 00:00 135 Stent ([id number]) Device Usage Item Name Manufacture Quantity Catalog Number Hospital Part Curr ent Minimal Lot# / Charge Number Stock Stock Serial# Code ACIST Syringe [place] [address] 25034 550874 580851 5253 94 20 (57533) Systems Inc ACIST Hand Acist Medical 1 08615 441126 828360 7169 22 5 Control (09735) Systems Inc ACIST Manifold Acist Medical 1 63161 957270 232362 4862 39 5 (85017) Systems Inc Bag Decanter Microtek 1 2001S 250859 32655 9865 64 5 (2001S) Medical Inc. Sterile Cardinal 1 [id number] 506395 5284 93 5 Angiographic Pack Health Tegaderm 4 x 4 3M 1 1626W 894061 196285 6716 41 5 (1626W) TUBING Contrast [facility] 1 NMD887H 917881 777469 0586 27 5 Injection High Pressure (ECO414F) Micropuncture VSI VSI VASCULAR 1 7266V 474152 2568 94 5 4FR kit SOLUTIONS SHEATH 5FR Terumo 1 QQU423 191606 384171 1626 24 5 [place] (VDV903) DOC .035 wire [facility] 1 W43934 309919 5988 68 5 (O35219) Angiodynamics Angiodynamics 1 21480235 240434 509611 5405 34 5 Omniflush 5Fr 65cm (44383222) GLIDE CATHETER Terumo 1 CG507 184477 6786 02 5 5FR ANGLED 65cm (CG507) GLIDE WIRE ANGLE Terumo 1 EF9704 919666 172169 6472 02 5 180cm (ZX8168) TORQUE DEVICE [place] 1 TD01 006778 941572 9624 12 5 PLASTIC .038 ( Scientific TD01) ROADRUNNER .035 [facility] 1 V16399 717522 230650 4062 59 5 9283804 145 glide wire (J66928) SHEATH 7FR X 25CM Terumo 2 WCB195 667176 881381 2568 97 1 RADIOPAUQE PINNICALE (YCA715) CXI Catheter 90cm [facility] 1 C41574 979129 663179 1399 10 5 9559172 (T14762) INFLATOR [facility] 1 OZ2877 696850 627165 2869 59 5 BasixTOUCH (PE1412) Merit UHF Pigtail [facility] 1 7602-20M65 266632 3784 29 5 VESSEL SIZING 5Fr 65CM catheter (190837F52) WELLS 260 wire [facility] 1 N46524 138811 60015 9995 62 5 (M13832) Evercross 3 x 6 x Medtronic 1 [id number] 685543 301517 9680 93 5 R764872 135 Balloon ([id number]) Ever[place] 4 x 6 x Medtronic 1 [id number] 656799 818567 8983 96 5 B080042 135 Balloon ([id number]) Visipro 10 x 57 x Medtronic 1 AHJ33-33-90-009 777638 27075 9999 98 5 F432660 135 Stent (XNS06-25-33-156) EXOSEAL 7Fr Cardinal 1 EX700 746489 053842 6627 41 5 [id number] (EX700) Health Signature Audit [place] Stage Time Signature Unsigned Intra-Procedure 08/21/2018 Tanvir 3:11:42 PM Zen RT (R) (CV) Signatures Monitor : Tanvir Signature : Zen RT Date : Time : [address] [place] [address]
[2018-08-21 10:44] LABS: BASOPHILS 0.5 % (0-2); EOSINOPHILS 1.1 % (0-7); HEMATOCRIT 35.2 % (42.0-54.0); HEMOGLOBIN 11.5 g/dL (13.5-17.5); IMMATURE GRANULOCYTES 0.1 % (0-5); LYMPHOCYTES 31.9 % (15-50); MCH 29.5 pg (26.0-34.0); MCHC 32.7 g/dL (31.0-37.0); MCV 90.3 fL (80.0-100.0); MEAN PLATELET VOLUME 9.6 fL (7.4-10.4); NEUTROPHILS 59.4 % (40-80); PLATELET COUNT 208 10x3/uL (130-400); RDW 16.8 % (11.5-14.5); WBC 8.8 10x3/uL (4.8-10.8)
[2018-08-21 10:48] LABS: ANION GAP 10.8 mmol/L (8-16); CALCIUM 9.1 mg/dL (8.5-10.1); CARBON DIOXIDE 27.2 mmol/L (21.0-32.0); CREATININE - SERUM 1.7 mg/dL (0.6-1.3)
[2018-08-21 10:50] LABS: APTT 29.6 SECONDS (22.8-39.4); INR 1.28 (0.85-1.17); PROTIME 15.5 SECONDS (11.6-15.0)
[2018-08-21 13:15] VITALS: BP 163/75; Ht 182.9 cm; Wt 85.5 kg
--- NOTE | 2018-08-21 17:36 | NUR ---
1530 SEE POST PROCEDURE CHECKLIST FOR VITAL SIGN TRENDS. WITH PT. TIME FRAME GIVEN 1545 NO BLEEDING NO HEMATOMA 1600 AHA FINGER FOOD DIET SERVED 1615 NO BLEEDING NO HEMATOMA 1630 NO BLEEDING NO HEMATOMA ATE 100% URINAL PROVIDED 1645 VOIDED 200CC IN URINAL
== END 2018-08-21 18:15 | disposition home or self-care (01) ==
LOC: D.SP 09:56 → D.RAD 13:00 → D.SP 13:00
PROVIDERS: ATTEND General Practice
DX: I70.211 Atherosclerosis of native arteries of extremities with intermittent claudication, right leg (principal); I70.92 Chronic total occlusion of artery of the extremities; Z01.812 Encounter for preprocedural laboratory examination

== ENCOUNTER → 2018-10-19 07:30 | Outpatient (CLI) | payer MEDICARE, OTHER ==
[2018-08-21 13:15] VITALS: BMI 25.5
== END | disposition home or self-care (01) ==
LOC: D.CT 07:30 → D.RT 09:00
PROVIDERS: ATTEND Internal Medicine Pulmonary Disease
DX: J98.4 Other disorders of lung (principal)

== ENCOUNTER 2018-11-08 15:09 | Inpatient (IN) | payer MEDICARE, OTHER ==
[~2018-11-08] VITALS: Ht 182.9 cm; Wt 90.7 kg
[2018-12-20 08:45] LABS: ANION GAP 12.4 mmol/L (8-16); CALCIUM 8.9 mg/dL (8.5-10.1); CREATININE - SERUM 1.2 mg/dL (0.6-1.3); POTASSIUM - SERUM 4.4 mmol/L (3.5-5.1)
[2018-12-20 08:46] LABS: BASOPHILS 0.5 % (0-2); EOSINOPHILS 1.5 % (0-7); HEMATOCRIT 34.1 % (42.0-54.0); HEMOGLOBIN 11.3 g/dL (13.5-17.5); IMMATURE GRANULOCYTES 0.2 % (0-5); LYMPHOCYTES 30.7 % (15-50); MCH 31.8 pg (26.0-34.0); MCHC 33.1 g/dL (31.0-37.0); MCV 96.1 fL (80.0-100.0); MONOCYTES 7.8 % (2-11); NEUTROPHILS 59.3 % (40-80); PLATELET COUNT 188 10x3/uL (130-400); RBC 3.55 10x6/uL (4.20-6.10); RDW 12.1 % (11.5-14.5); WBC 5.9 10x3/uL (4.8-10.8)
[2018-12-20 08:53] LABS: INR 1.21 (0.85-1.17); PROTIME 14.7 SECONDS (11.6-15.0)
[2018-12-20 08:54] LABS: APTT 30.5 SECONDS (22.8-39.4)
[2018-12-20 09:40] LABS: APPEARANCE CLEAR (CLEAR); BILIRUBIN NEGATIVE (NEGATIVE); COLOR YELLOW (YELLOW); GLUCOSE NEGATIVE (NEGATIVE); KETONE NEGATIVE (NEGATIVE); NITRITE NEGATIVE (NEGATIVE); PROTEIN NEGATIVE (NEGATIVE); SPECIFIC GRAVITY 1.015 (1.005-1.020); UROBILINOGEN NORMAL (NORMAL)
[2018-12-20] MEDS ORDERED: GLUCOPHAGE1000 MG PO (11:09)
[2018-12-20] MEDS ORDERED: GLIPIZIDE10 MG PO (11:09)
[2018-12-25] VITALS (15 sets, daily range): BP systolic 130–165; BP diastolic 53–80; BMI 27.2
--- NOTE | 2018-12-25 12:18 | NUR ---
patient watching tv. no needs at this time. cl in reach. wctm
[2018-12-25] MEDS ORDERED: ROPINIROLE HCL1 MG PO (13:05)
[2018-12-25 17:17] LABS: APPEARANCE CLEAR (CLEAR); BILIRUBIN NEGATIVE (NEGATIVE); COLOR YELLOW (YELLOW); GLUCOSE 500 mg/dL (NEGATIVE); KETONE NEGATIVE (NEGATIVE); NITRITE NEGATIVE (NEGATIVE); PROTEIN NEGATIVE (NEGATIVE); SPECIFIC GRAVITY 1.015 (1.005-1.020); UROBILINOGEN NORMAL (NORMAL)
--- NOTE | 2018-12-25 20:45 | NUR ---
LYING SUPINE IN BED. ALERT AND ORIENTED X4. CPM ON LLE. DRSG WITH ARTEM WRAP TO LT KNEE IS C/D/I. PEDAL PULSES WEAK BILAT. DENIES PAIN. RESP EVEN AND NONLABORED. 1/2 NS @ 100 ML/HR INFUSING IN LT FOREARM WITHOUT DIFF. SR ELEVATED X2. CL IN REACH.
--- NOTE | 2018-12-25 21:00 | NUR ---
CPM REMOVED. DENIES PAIN. NO DISTRESS. CL IN REACH.
[2018-12-26] VITALS: BP 144/57
--- NOTE | 2018-12-26 02:37 | NUR ---
HAS RESTED WELL SO FAR THIS SHIFT. DENIES PAIN. CL IN REACH.
[2018-12-26 04:00] VITALS: BP 150/60
[2018-12-26 04:44] LABS: BASOPHILS 0 % (0-2); EOSINOPHILS 0 % (0-7); HEMOGLOBIN 10.2 g/dL (13.5-17.5); IMMATURE GRANULOCYTES 0.2 % (0-5); LYMPHOCYTES 9.9 % (15-50); MCH 31.6 pg (26.0-34.0); MCHC 32.9 g/dL (31.0-37.0); MONOCYTES 5.1 % (2-11); NEUTROPHILS 84.8 % (40-80); PLATELET COUNT 213 10x3/uL (130-400); RBC 3.23 10x6/uL (4.20-6.10); RDW 11.8 % (11.5-14.5); WBC 12.5 10x3/uL (4.8-10.8)
[2018-12-26 04:46] LABS: ANION GAP 16.1 mmol/L (8-16); CALCIUM 8.1 mg/dL (8.5-10.1); CARBON DIOXIDE 20.8 mmol/L (21.0-32.0); CREATININE - SERUM 1.7 mg/dL (0.6-1.3); POTASSIUM - SERUM 4.9 mmol/L (3.5-5.1)
--- NOTE | 2018-12-26 05:50 | NUR ---
LYING IN BED WATCHING TV. DENIES NEED FOR PAIN MED. NO DISTRESS. CL IN REACH.
[2018-12-26 08:19] VITALS: BP 163/58
--- NOTE | 2018-12-26 11:00 | NUR ---
PT ALERT X 4. BREATH SOUNDS CLEAR BILAT. PT SITTING UP IN CHAIR, REPORTING NO PAIN AT THIS TIME, BLOCK STARTING TO WEAR OFF. INSTRUCTED PT TO REPORT PAIN FEELING RETURNS. IV TO LEFT FOREARM, BLOOD AROUND INSERTION SITE, FLUSHED FOR PATENCY. FAMILY AT BEDSIDE. BED LOW, CALL LIGHT IN REACH. NO OTHER NEEDS AT THIS TIME.
[2018-12-26 12:37] VITALS: BP 161/58
[2018-12-26 13:04] VITALS: Ht 182.9 cm; Wt 90.7 kg
[2018-12-26 16:14] VITALS: BP 159/55
--- NOTE | 2018-12-26 20:20 | NUR ---
LYING IN BED. ALERT AND ORIENTED X4. RESP EVEN AND NONLABORED. ENCOURAGED USE OF I.S. REFUSED COLACE. STATES HE HAD A LARGE BM THIS EVENING. CPM ON LLE. DRSG NOTED TO KNEE WITH ARTEM WRAP IS C/D/I. SCD NOTED TO RLE. PEDAL PULSES WEAK BILAT. NO EDEMA NOTED. DENIES PAIN. SALINE LOCK NOTED TO LT FOREARM. SR ELEVATED X2. CL IN REACH.
[2018-12-26 20:25] VITALS: BP 149/61
--- NOTE | 2018-12-26 21:10 | NUR ---
PT REQUESTING CPM TO BE REMOVED 10 MINUTES EARLY BECAUSE HE IS READY TO GO TO SLEEP. CPM REMOVED AT THIS TIME. CL IN REACH.
--- NOTE | 2018-12-26 23:45 | NUR ---
MEDICATED WITH NORCO FOR C/O LT KNEE PAIN. DESCRIBES A SHOOTING "NERVE" PAIN UNDER LEFT KNEE. CL IN REACH.
[2018-12-27] VITALS (7 sets, daily range): BP systolic 109–189; BP diastolic 62–74
--- NOTE | 2018-12-27 02:00 | NUR ---
RESTING IN BED WITH EYES CLOSED. RESP EVEN AND NONLABORED. NO DISTRESS. CL IN REACH.
[2018-12-27 05:37] LABS: BASOPHILS 0.1 % (0-2); EOSINOPHILS 0.1 % (0-7); HEMATOCRIT 28.9 % (42.0-54.0); HEMOGLOBIN 9.7 g/dL (13.5-17.5); IMMATURE GRANULOCYTES 0.2 % (0-5); LYMPHOCYTES 21.4 % (15-50); MCH 31.9 pg (26.0-34.0); MCHC 33.6 g/dL (31.0-37.0); MCV 95.1 fL (80.0-100.0); MEAN PLATELET VOLUME 9.2 fL (7.4-10.4); MONOCYTES 12.6 % (2-11); NEUTROPHILS 65.6 % (40-80); PLATELET COUNT 204 10x3/uL (130-400); RBC 3.04 10x6/uL (4.20-6.10)
--- NOTE | 2018-12-27 05:55 | NUR ---
HAD REFUSED TO USE CPM THIS AM DUE TO INCREASED KNEE PAIN THIS MORNING. ENCOURAGED USE OF CPM. MEDICATED WITH NORCO FOR C/O PAIN IN LT KNEE RATING [address] PA[address] ON CPM AROUND 0630.
[2018-12-27 06:05] LABS: ANION GAP 13.1 mmol/L (8-16); CALCIUM 8.3 mg/dL (8.5-10.1); CARBON DIOXIDE 23.8 mmol/L (21.0-32.0); CREATININE - SERUM 1.2 mg/dL (0.6-1.3); POTASSIUM - SERUM 3.9 mmol/L (3.5-5.1)
--- NOTE | 2018-12-27 06:40 | NUR ---
PLACED ON CPM AT THIS TIME.
--- NOTE | 2018-12-27 08:58 | NUR ---
PATIENT RECIVED THIS AM FROM PREVIOUS NURSE RESTING WITH EYES CLOSED, CPM IN PLACE. PERCOCET 10 GIVEN AFTER CPM REMOVED FOR PAIN OF 8
--- NOTE | 2018-12-27 11:33 | MORECARE ---
CASE MANAGEMENT DISCHARGE SUMMARY PATIENT: KAMRAN XAVIER UNIT: [id number] ADM DATE: 12/25/18 AGE: 78 : 38 SEX: M ROOM/BED: D.2208 AUTHOR: RADHA HOLLAND PHYSICIAN: REFERRING PHYSICIAN: ARMANDO HOUSTON MD DATE OF SERVICE: 12/27/18 Discharge Plan Patient Name: KAMRAN XAVIER Facility: [facility]:[place] : 1940 Planned Disposition: Home or Self Care Anticipated Discharge Date: Discharge Date: Expected LOS: Initial Reviewer: [email or web address] Initial Review Date: 12/25/2018 Generated: 12/27/18 12:32 pm DCPIA - Discharge Planning Initial Assessment Updated by [email or web address]: Jennifer London on 12/27/18 11:30 am * Is the patient Alert and Oriented? Yes * PCP STACY * Pharmacy [facility] * Preadmission Environment Home with Family * ADLs Independent * Equipment Bedside Commode Glucometer Rolling Walker Shower Chair Tub Bench Walker * Other Equipment WALK IN SHOWER CPM * List name and contact numbers for known caregivers / representatives who currently or will assist patient after discharge: SEGUNDO () [phone] * Verbal permission to speak to the caregivers and representatives has been obtained from the patient. N/A * Community resources currently utilized None * Additional services required to return to the preadmission environment? Yes * Can the patient safely return to the preadmission environment? Yes * Has this patient been hospitalized within the prior 30 days at any hospital? No External Providers External Provider: [facility] Next Contact Date: Service Request Date: Service Type: Resolution: Reviewer: Comments: Coverage Notice Reviewer: [email or web address] - Jennifer London Notice Issued Date-Time: 12/27/2018 9:00 Notice Type: IM Discharge Notice Notice Delivered To: Patient Relationship to Patient: Propagator Laborer Name: Delivery Method: HAND - Hand Delivered Etelvina Days: Prior Verbal Notification: Recipient Understood Notice: Yes Recipient Signature: Yes Med Rec Note Co-signed by Attending: Coverage Notice Comment: Patient Name: KAMRAN XAVIER Page 24802 at 1133 All edits/amendments must be made on the electronic document DICTATION DATE: 12/27/181131 PROGRAM MANAGER ENVIRONMENTAL PLANNING: GRAHAM 12/27/18 113 RPT#: [id number] DC DATE: STATUS: ADM IN [facility] [address] [place] [address] END OF REPORT
--- NOTE | 2018-12-27 11:42 | MORECARE ---
CASE MANAGEMENT DISCHARGE SUMMARY PATIENT: KAMRAN XAVIER UNIT: [id number] ADM DATE: 12/25/18 AGE: 78 : 38 SEX: M ROOM/BED: D.2208 AUTHOR: AMALIA,DOC PHYSICIAN: REFERRING PHYSICIAN: ARMANDO HOUSTON MD DATE OF SERVICE: 12/27/18 Discharge Plan Patient Name: KAMRAN XAVIER Facility: [facility]:[place] : 1940 Planned Disposition: Home or Self Care Anticipated Discharge Date: Discharge Date: Expected LOS: Initial Reviewer: [email or web address] Initial Review Date: 12/25/2018 Generated: 12/27/18 12:42 pm Comments DCP- Discharge Planning Updated by [email or web address]: Jennifer London on 12/27/18 10:[address] Patient Name: KAMRAN XAVIER Admission Status: Elective Accout number: [id number] Admission Date: 12-25-2018 : 1940 Admission Diagnosis: Attending: ARMANDO HOUSTON Current LOS: 2 Anticipated DC Date: Planned Disposition: Home or Self Care Primary Insurance: MEDICARE A & B Discharge Planning Comments: CM met with patient to complete initial dc planning assessment. CM educated patient on the CM role and verbal consent given by patient to complete assessment. Patient lives at home with his spouse where he was independent with his care. At discharge patient plans to return home and feels this is a safe discharge. CM discussed availability of home health, rehab services, and medical equipment. He would like to do OP PT at [facility]. I spoke with Isidro and appointment made for TuesdayJan 01 @ 2:30 pm. Patient has a walker, glucometer, BSC, shower chair, walk in tub, and CPM at home. Patient denied known discharge needs at this time. 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 IMM served and explained. CM will continue to follow and will assist as needed with dc plans/needs. Environmental Inspector: Jennifer London DCPIA - Discharge Planning Initial Assessment Updated by [email or web address]: Jennifer London on 12/27/18 11:30 am * Is the patient Alert and Oriented? Yes * PCP STACY * Pharmacy [facility] * Preadmission Environment Home with Family * ADLs Independent * Equipment Bedside Commode Glucometer Rolling Walker Shower Chair Tub Bench Walker * Other Equipment WALK IN SHOWER CPM * List name and contact numbers for known caregivers / representatives who currently or will assist patient after discharge: SEGUNDO () [phone] * Verbal permission to speak to the caregivers and representatives has been obtained from the patient. N/A * Community resources currently utilized None * Additional services required to return to the preadmission environment? Yes * Can the patient safely return to the preadmission environment? Yes * Has this patient been hospitalized within the prior 30 days at any hospital? No Coverage Notice Reviewer: [email or web address] Ashley London Notice Issued Date-Time: 12/27/2018 9:00 Notice Type: IM Discharge Notice Notice Delivered To: Patient Relationship to Patient: Pulper Tender Name: Delivery Method: HAND - Hand Delivered Etelvina Days: Prior Verbal Notification: Recipient Understood Notice: Yes Recipient Signature: Yes Med Rec Note Co-signed by Attending: Coverage Notice Comment: Last DP export: 12/27/18 10:33 Patient Name: KAMRAN XAVIER Page 63818 at 1142 All edits/amendments must be made on the electronic document DICTATION DATE: 12/27/18 114 TECHNICAL DEVELOPER: GRAHAM 12/27/18 1142 RPT#: [id number] DC DATE: STATUS: ADM IN [facility] [address] [place] [address] END OF REPORT
--- NOTE | 2018-12-27 19:21 | NUR ---
LYING IN BED WITH TELEVISION ON, MOOD AND AFFECT IS PLEASANT, ABLE TO VOICE ALL NEEDS. DENIES ANY PAIN AT THIS TIME. SHOWS NO S/S OF ANY ACUTE DISTRESS. IV TO LFA IS SALINE LOC AND PATENT TO FLUSH. WILL NOTE ANY CHANGE.
[2018-12-28 04:00] VITALS: BP 180/72
[2018-12-28 04:49] LABS: BASOPHILS 0.2 % (0-2); EOSINOPHILS 0.2 % (0-7); HEMOGLOBIN 10.2 g/dL (13.5-17.5); IMMATURE GRANULOCYTES 0.2 % (0-5); MCH 31.5 pg (26.0-34.0); MCHC 32.9 g/dL (31.0-37.0); MCV 95.7 fL (80.0-100.0); MEAN PLATELET VOLUME 9.1 fL (7.4-10.4); MONOCYTES 14.4 % (2-11); PLATELET COUNT 208 10x3/uL (130-400); RBC 3.24 10x6/uL (4.20-6.10); RDW 11.9 % (11.5-14.5); WBC 13.3 10x3/uL (4.8-10.8)
[2018-12-28 05:13] LABS: ANION GAP 13.7 mmol/L (8-16); CALCIUM 8.3 mg/dL (8.5-10.1); CARBON DIOXIDE 24.3 mmol/L (21.0-32.0); CREATININE - SERUM 1.4 mg/dL (0.6-1.3)
--- NOTE | 2018-12-28 06:00 | NUR ---
LAB NOTIFIED THIS NURSE OF FSBS OF 46, THIS NURSE RECHECKED AND GOT RESULT OF 54, MILK, STEVEN CRACKERS AND HYPOGLYCEMIC PROTOCAL ENGAGED, IM TO LEFT DELTOID OF GLUCAGON ADMINISTERED. WILL RECHECK. PT IS ASYMPTOMATIC OF HYPOGLYCEMIA, UP, ALERT AND ORIENTED TIMES 3. SAYS IT IS WAY TOO EARLY IN THE MORNING TO BE EATING MILK AND COOKIES, HE BANTERED WITH THIS NURSE ABOUT NEEDING TO GO HOME TO REST. WILL RECHECK LEVEL.
--- NOTE | 2018-12-28 07:36 | NUR ---
PATIENT RECIEVED FROM PREVIOUS NURSE RESTING IN BED WITH NO NEEDS VOICED, DRESSING C/D/I. CL IN REACH
--- NOTE | 2018-12-28 08:37 | OP ---
PATIENT NAME: KAMRAN XAVIER MEDICAL RECORD: [id number] :36 LOCATION:D.[id number] ADMISSION DATE:12/25/18 SURGEON: ARMANDO HOUSTON MD DATE OF OPERATION: 12/25/2018 PREOPERATIVE DIAGNOSIS: Degenerative arthritis, left knee. POSTOPERATIVE DIAGNOSIS: Degenerative arthritis, left knee. PROCEDURE: Left total knee arthroplasty. SURGEON: Armando Houston MD NUCLEAR EQUIPMENT TEST ENGINEER: Molina Roe APN INTRAOPERATIVE COMPLICATIONS: None. SUMMARY OF PATHOLOGIC FINDINGS: The patient has essentially tricompartmental osteoarthritis, worse in the medial side consistent with preoperative radiographs. IMPLANTS USED: Cemented Darline triathlon total knee arthroplasty, size 6 distal femur, 6 tibial baseplate, 9 mm polyethylene insert, and a 33 x 9 cemented patella. OPERATIVE SUMMARY IN DETAIL: After obtaining the appropriate preoperative orthopedic surgery consent as well as anesthetic consultation, evaluation and clearance, the patient was brought to the operating room and placed on the operating room table in supine position. After general laryngeal mask was administered, tourniquet was placed at the proximal aspect of left lower extremity. Left lower extremity was then prepped and draped in routine sterile fashion. The leg was elevated and exsanguinated and tourniquet was inflated to 350 mmHg. Routine midline incision was taken down. Paramedian arthrotomy was performed. Patella was everted, distal femur was exposed. Soft tissue excision was done in the usual fashion. An intramedullary guide hole was created for intramedullary guided distal femoral cut followed by complete exposure of the proximal tibia and again intramedullary guidance was utilized here as well to make the proximal tibial cut. Appropriate measurements were made and chamfer cuts were then made on the distal femur. The components corresponding to the above were put into place, taken through a range of motion. Final adjustments were made and then the final distal femoral and proximal tibial preparations were made. This was followed by excision of the articular surface of the patella and it was prepared for implantation of the 33 mm patellar component. At the point, the wound was irrigated with pulsatile lavage cap maker. Bone ends were dried. All components were cemented in place after excess cement was removed allowed to harden. The knee was taken through range of motion and found to be stable in all planes. A gram of vancomycin and a gram of tobramycin was placed in the knee. The arthrotomy was closed with #2 Ethibond by Molina Planzo, followed by #1 Vicryl, 2-0 Vicryl and skin alivia. Sterile dressings were applied. The patient was awakened and taken to the recovery room in stable condition. All final needle and sponge counts were correct. TRANSINT:[id number] Voice Confirmation ID: [id number] DOCUMENT ID: [id number] OPERATIVE REPORT [id number] KAMRAN XAVIER MD, ARMANDO MANCERA at 0837 CC: [id number] DICTATION DATE: 12/27/18 1257 RETAIL MARKETING MANAGER: 12/27/18 1324 ADM IN [facility] [address] [id number]
[2018-12-28 09:21] VITALS: BP 175/78
[2018-12-28 12:16] VITALS: BP 102/50
--- NOTE | 2018-12-28 14:16 | NUR ---
OT NOTE: BED MOB WITH MIN ASSIST; SIT TO STAND WITH WALKER AND MIN ASSIST; FUNCTIONAL TRANSFERS WITH MIN ASSIST AND VC FOR SAFETY. CONTINUED EDUCATION FOR SAFETY DURING IN ROOM MOBILITY..PT STEPPING VERY FAR FORWARD INTO WALKER, MAKING IT TIP FORWARD.. CONT CUES TO STEP BACK FROM FRONT OF WALKER, HOWEVER, PT IS NOT FOLLOWING THESE CUES. SET UP TO KEVIN GOWN BUT MOD ASSIST TO KEVIN L SOCK. CHRIS HANSEN, OTR/L
--- NOTE | 2018-12-28 15:10 | NUR ---
OT NOTE: PT COMPLETED SIDE ROLLING TO RIGHT WITH SBA. PT COMPLETED BUE AROM EXS. PT COMPLETED FACE/HAND HYGIENE WITH SET UP. THANK YOU, NAVID LOPEZ
--- NOTE | 2018-12-28 15:22 | NUR ---
Rehab Note- Acute Inpatient Rehab prescreen order received. THe patient is a good an inpatient acute rehab candidate. Spoke with DWAINE Peña. Will accept the patient when medically stable and ready for discharge from the acute hospital. Thank you for this referral! China Ramirez RN Clinical Liaison, [facility] Rehab
[2018-12-28] MEDS ORDERED: HYDROCODON-ACE1 EA10 PO (15:46)
[2018-12-28] MEDS ORDERED: ELIQUIS2.5 MG PO (15:46)
--- NOTE | 2018-12-28 15:56 | MORECARE ---
CASE MANAGEMENT DISCHARGE SUMMARY PATIENT: KAMRAN XAVIER UNIT: [id number] ADM DATE: 12/25/18 AGE: 78 : 38 SEX: M ROOM/BED: D.2208 AUTHOR: AMALIA,DOC PHYSICIAN: REFERRING PHYSICIAN: ARMANDO HOUSTON MD DATE OF SERVICE: 12/28/18 Discharge Plan Patient Name: KAMRAN XAVIER Facility: [facility]:[place] : 1940 Planned Disposition: Home or Self Care Anticipated Discharge Date: Discharge Date: Expected LOS: Initial Reviewer: [id number] Initial Review Date: 12/25/2018 Generated: 12/28/18 4:55 pm Comments DCP- Discharge Planning Updated by [email or web address]: Jennifer London on 12/28/18 2:[address] Patient will be discharging to inpatient rehab at [facility]. DCP- Discharge Planning Updated by [email or web address]: Jennifer London on 12/27/18 10:[address] Patient Name: KAMRAN XAVEIR Admission Status: Elective Accout number: [id number] Admission Date: 12-25-2018 : 1940 Admission Diagnosis: Attending: ARMANDO HOUSTON Current LOS: 2 Anticipated DC Date: Planned Disposition: Home or Self Care Primary Insurance: MEDICARE A & B Discharge Planning Comments: CM met with patient to complete initial dc planning assessment. CM educated patient on the CM role and verbal consent given by patient to complete assessment. Patient lives at home with his spouse where he was independent with his care. At discharge patient plans to return home and feels this is a safe discharge. CM discussed availability of home health, rehab services, and medical equipment. He would like to do OP PT at [facility]. I spoke with Isidro and appointment made for TuesdayJan 01 @ 2:30 pm. Patient has a walker, glucometer, BSC, shower chair, walk in tub, and CPM at home. Patient denied known discharge needs at this time. 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 IMM served and explained. CM will continue to follow and will assist as needed with dc plans/needs. Appraisal Analyst: Jennifer London DCPIA - Discharge Planning Initial Assessment Updated by [id number]: Jennifer London on 12/27/18 11:30 am * Is the patient Alert and Oriented? Yes * PCP STACY * Pharmacy [facility] * Preadmission Environment Home with Family * ADLs Independent * Equipment Bedside Commode Glucometer Rolling Walker Shower Chair Tub Bench Walker * Other Equipment WALK IN SHOWER CPM * List name and contact numbers for known caregivers / representatives who currently or will assist patient after discharge: SEGUNDO () [phone] * Verbal permission to speak to the caregivers and representatives has been obtained from the patient. N/A * Community resources currently utilized None * Additional services required to return to the preadmission environment? Yes * Can the patient safely return to the preadmission environment? Yes * Has this patient been hospitalized within the prior 30 days at any hospital? No Coverage Notice Reviewer: [id number] - Jennifer London Notice Issued Date-Time: 12/27/2018 9:00 Notice Type: IM Discharge Notice Notice Delivered To: Patient Relationship to Patient: Crew Dispatcher Name: Delivery Method: HAND - Hand Delivered Etelvina Days: Prior Verbal Notification: Recipient Understood Notice: Yes Recipient Signature: Yes Med Rec Note Co-signed by Attending: Coverage Notice Comment: Last DP export: 12/27/18 10:42 Patient Name: KAMRAN XAVIER Page [id number] at 1556 All edits/amendments must be made on the electronic document DICTATION DATE: 12/28/181554 PRODUCT ACCOUNTANT: GRAHAM 12/28/181554 RPT#: [id number] DC DATE: STATUS: ADM IN [facility] [address] [place] [address] END OF REPORT
[2018-12-28 17:09] VITALS: BP 110/44
--- NOTE | 2018-12-28 18:14 | NUR ---
REPORT CALLED TO [facility] IN REHAB. DISCHARGE INSTRUCTIONS AND TEACHING GIVEN TO PATIENT WITH UNDERSTANDING VOICED. ARTEM WRAP AND CAST PADDING REMOVED. PATIENT TAKEN TO REHAB BY WHEELCHAIR
--- NOTE | 2019-01-01 14:12 | MORECARE ---
CASE MANAGEMENT DISCHARGE SUMMARY PATIENT: KAMRAN XAVIER UNIT: [id number] ADM DATE: 12/25/18 AGE: 78 : 38 SEX: M ROOM/BED: D.2208 AUTHOR: AMALIA,DOC PHYSICIAN: REFERRING PHYSICIAN: ARMANDO HOUSTON MD DATE OF SERVICE: 01/01/19 Discharge Plan Patient Name: KAMRAN XAVIER Facility: [facility]:[place] : 1940 Planned Disposition: Home or Self Care Anticipated Discharge Date: Discharge Date: 12/28/2018 Expected LOS: Initial Reviewer: [email or web address] Initial Review Date: 12/25/2018 Generated: 01/01/19 3:12 pm Comments DCP- Discharge Planning Updated by [email or web address]: Jennifer London on 12/28/18 2:[address] Patient will be discharging to inpatient rehab at [facility] 111. DCP- Discharge Planning Updated by [email or web address]: Jennifer London on 12/27/18 10:[address] Patient Name: KAMRAN XAVIER Admission Status: Elective Accout number: [id number] Admission Date: 12-25-2018 : 1940 Admission Diagnosis: Attending: ARMANDO HOUSTON Current LOS: 2 Anticipated DC Date: Planned Disposition: Home or Self Care Primary Insurance: MEDICARE A & B Discharge Planning Comments: CM met with patient to complete initial dc planning assessment. CM educated patient on the CM role and verbal consent given by patient to complete assessment. Patient lives at home with his spouse where he was independent with his care. At discharge patient plans to return home and feels this is a safe discharge. CM discussed availability of home health, rehab services, and medical equipment. He would like to do OP PT at [facility]. I spoke with Isidro and appointment made for TuesdayJan 01 @ 2:30 pm. Patient has a walker, glucometer, BSC, shower chair, walk in tub, and CPM at home. Patient denied known discharge needs at this time. 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 IMM served and explained. CM will continue to follow and will assist as needed with dc plans/needs. Aerospace Project Engineer: Jennifer London DCPIA - Discharge Planning Initial Assessment Updated by [email or web address]: Jennifer London on 12/27/18 11:30 am * Is the patient Alert and Oriented? Yes * PCP STACY * Pharmacy [facility] * Preadmission Environment Home with Family * ADLs Independent * Equipment Bedside Commode Glucometer Rolling Walker Shower Chair Tub Bench Walker * Other Equipment WALK IN SHOWER CPM * List name and contact numbers for known caregivers / representatives who currently or will assist patient after discharge: SEGUNDO () [phone] * Verbal permission to speak to the caregivers and representatives has been obtained from the patient. N/A * Community resources currently utilized None * Additional services required to return to the preadmission environment? Yes * Can the patient safely return to the preadmission environment? Yes * Has this patient been hospitalized within the prior 30 days at any hospital? No Coverage Notice Reviewer: [email or web address] - Jennifer London Notice Issued Date-Time: 12/27/2018 9:00 Notice Type: IM Discharge Notice Notice Delivered To: Patient Relationship to Patient: Journalism Teacher Name: Delivery Method: HAND - Hand Delivered Etelvina Days: Prior Verbal Notification: Recipient Understood Notice: Yes Recipient Signature: Yes Med Rec Note Co-signed by Attending: Coverage Notice Comment: Last DP export: 12/28/18 2:56 Patient Name: KAMRAN XAVIER Page [id number] at 1412 All edits/amendments must be made on the electronic document DICTATION DATE: 01/01/191411 EMAIL SPECIALIST: GRAHAM 01/01/19 141 RPT#: [id number] DC DATE:12/28/18 STATUS: DIS IN [facility] [address] [place] [address] END OF REPORT
== END 2018-12-28 18:20 | DRG 470 ==
LOC: D.CVICU 12-20 10:00 → D.MS 12-25 06:27 → D.SDCHOLD 12-25 06:27 → D.CVICU 12-25 09:00 → D.SDCHOLD 12-25 10:00 → D.CVICU 12-25 10:00 → D.MS 12-25 11:08
PROVIDERS: Family Medicine; ADMIT Orthopaedic Surgery; ATTEND Orthopaedic Surgery
PROC: 0SRD0J9 Replacement of Left Knee Joint with Synthetic Substitute, Cemented, Open Approach (ICD-10-PCS; principal; 2018-12-25 08:30)
DX: M17.12 Unilateral primary osteoarthritis, left knee (principal); J44.9 Chronic obstructive pulmonary disease, unspecified; I25.10 Atherosclerotic heart disease of native coronary artery without angina pectoris; I50.9 Heart failure, unspecified; Z95.0 Presence of cardiac pacemaker; I11.0 Hypertensive heart disease with heart failure; E11.40 Type 2 diabetes mellitus with diabetic neuropathy, unspecified; E13.51 Other specified diabetes mellitus with diabetic peripheral angiopathy without gangrene; I25.2 Old myocardial infarction

== ENCOUNTER → 2018-11-08 16:10 | Outpatient (CLI) | payer MEDICARE, OTHER ==
[2018-08-21 13:15] VITALS: BMI 25.5
== END | disposition home or self-care (01) ==
LOC: D.LABREF 16:10
PROVIDERS: ATTEND Orthopaedic Surgery
DX: M17.12 Unilateral primary osteoarthritis, left knee (principal)

== ENCOUNTER 2018-12-28 15:53 | Inpatient (IN) | payer MEDICARE, OTHER ==
[~2018-12-28] VITALS: Ht 182.9 cm; Wt 90.7 kg
[~2018-12-28 15:53] MED LIST changes: +HYDROCODON-ACE1 EA10 PO; +ROPINIROLE HCL1 MG PO
--- NOTE | 2018-12-28 19:00 | NUR ---
BEDSIDE REPORT COMPLETE. PT SITTING UP IN BED EYES OPEN ALERT. ORIENTED TO ROOM, BATHROOM, FUNCTIONS OF REMOTE. A/O X4. DENIES ANY NEEDS OR PAIN. VS STABLE. NO IV OR O2. LEFT KNEE INCISION WITH FELIZ FREE FROM REDNESS OR SWELLING. NO DRAINAGE NOTED. DRESSED WITH 7 DAY AG DRESSING. BUTTOCKS SLIGHTLY REDDENED BLANCHABLE. CL IN REACH. FALL PRECAUTIONS IN PLACE. WILL CONTINUE TO MONITOR
[2018-12-28 20:34] VITALS: BP 148/66
[2018-12-28 23:25] VITALS: BP 169/73; BMI 27.2
--- NOTE | 2018-12-29 00:41 | NUR ---
QUIET HOURS. PT LYING IN BED SUPINE EYES CLOSED RESTING COMFORABLY. RR EVEN AND UNLABORED. CL IN REACH.
--- NOTE | 2018-12-29 03:59 | NUR ---
PT LYING IN BED SUPINE EYES CLOSED RESTING. RR EVEN AND UNLABORED. CL IN REACH
--- NOTE | 2018-12-29 06:10 | NUR ---
FSBS 44 GAVE PT 8 OZ OJ AND STEVEN CRACKERS. WILL REPEAT FSBS
--- NOTE | 2018-12-29 06:36 | NUR ---
RECHECKED FSBS 82
--- NOTE | 2018-12-29 06:40 | NUR ---
PT SITTING UP IN BED DRINKING COFFEE. DENIES ANY NEEDS OR PAIN. RR EVEN AND UNLABORED. GOWN CHANGED. CL IN REACH
[2018-12-29 07:32] VITALS: BP 166/68
[2018-12-29 07:49] LABS: BASOPHILS 0.1 % (0-2); EOSINOPHILS 0.1 % (0-7); HEMATOCRIT 32.8 % (42.0-54.0); HEMOGLOBIN 10.7 g/dL (13.5-17.5); IMMATURE GRANULOCYTES 0.3 % (0-5); MCH 31.3 pg (26.0-34.0); MCHC 32.6 g/dL (31.0-37.0); MCV 95.9 fL (80.0-100.0); MEAN PLATELET VOLUME 9.2 fL (7.4-10.4); MONOCYTES 9.3 % (2-11); NEUTROPHILS 72.2 % (40-80); PLATELET COUNT 245 10x3/uL (130-400); RBC 3.42 10x6/uL (4.20-6.10); RDW 12.2 % (11.5-14.5); WBC 12.5 10x3/uL (4.8-10.8)
--- NOTE | 2018-12-29 08:00 | NUR ---
PATIENT IS ALERT/ORIENT. WORKING WITH PHYSICAL THERAPIST IN REHAB ROOM. VOICES NO NEEDS AT THIS TIME. WILL CONTINUE WITH PLAN OF CARE
[2018-12-29 08:14] LABS: ANION GAP 16.3 mmol/L (8-16); CALCIUM 8.9 mg/dL (8.5-10.1); CARBON DIOXIDE 24.9 mmol/L (21.0-32.0); CREATININE - SERUM 1.4 mg/dL (0.6-1.3); POTASSIUM - SERUM 4.2 mmol/L (3.5-5.1)
--- NOTE | 2018-12-29 09:46 | NUR ---
PATIENT BACK IN BED AFTER THERAPY. VISITING IN ROOM.
[2018-12-29 10:59] VITALS: Ht 182.9 cm; Wt 90.7 kg
--- NOTE | 2018-12-29 15:21 | NUR ---
PRN PAIN MEDICATION FOR LEFT KNEE PAIN/DISC PER PATIENT REQUEST
--- NOTE | 2018-12-29 16:05 | NUR ---
PATIENT ADMITTED TO REHAB FROM ACUTE FLOOR.HIS PCP IS DR. KUMAR. DME AT HOME IS A WALKER, SHOWER CHAIR, TUB BENCH BEDSIDE COMMODE, CPM AND A GLUCOMETER. DISCHARGE PLANS ARE FOR HIM TO RETURN TO HIS HOME AT [facility] WITH HIS SPOUSE. WILL CONTINUE TO FOLLOW WITH PATIENT
--- NOTE | 2018-12-29 17:55 | NUR ---
I have reviewed this patient and I concur with the Shift Assessment completed by the Licensed Practical Nurse today this shift.
[2018-12-29 19:21] VITALS: BP 157/68
--- NOTE | 2018-12-29 20:00 | NUR ---
AWAKE AND ALERT. RESTING IN BED WITH NO DISTRESS NOTED. RIGHT KNEE INCISION NOTED WITH CLIPS AND NO DRAINAGE. RESPIRATIONS UNLABORED. CALL LIGHT IN REACH.
--- NOTE | 2018-12-30 01:41 | NUR ---
SLEEPING WITH RESPIRATIONS UNLABORED. NO DISTRESS NOTED. CALL LIGHT IN REACH.
--- NOTE | 2018-12-30 07:22 | NUR ---
GREETED PATIENT AND INTRODUCED MYSELF HIS NURSE. PATIENT IS LAYING IN BED RESTING AT THIS TIME. STATES THAT PAIN IS 3/10 LEFT KNEE AND FOOT. RESPIRATIONS EVEN. NO S/S OF DISTRESS. CALL LIGHT IN REACH.
--- NOTE | 2018-12-30 09:38 | NUR ---
PT UP AND IN THERAPY AT THIS TIME.
[2018-12-30 09:51] VITALS: BP 138/65
--- NOTE | 2018-12-30 11:06 | NUR ---
PT. BACK TO HIS ROOM FROM THERAPY. PT. SITTING IN WHEELCHAIR WATCHING TV. CALL LIGHT IN REACH.
--- NOTE | 2018-12-30 14:00 | NUR ---
SITTING OUTSIDE WITH PT.
[2018-12-30 19:15] VITALS: BP 151/76
--- NOTE | 2018-12-30 19:24 | NUR ---
PT IS RESTING IN BED WITH EYES CLOSED. AWOKE EASILY TO VERBAL STIMULI. ALERT AND ORIENTED X 3. DENIES ACUTE PAIN OR DISCOMFORT AT THIS TIME. NO NEEDS VOICED. VSS. DRESSING TO LEFT KNEE IS CDI. SR'S ARE UP X 2 IN BED. CALL LIGHT AND BEDSIDE TABLE ARE WITHIN EASY REACH.
--- NOTE | 2018-12-30 21:35 | NUR ---
RESTING QUIETLY IN BED WITH EYES CLOSED. RESPS ARE EVEN AND UNLABORED. NO ACUTE DISTRESS NOTED.
--- NOTE | 2018-12-30 22:28 | NUR ---
I have reviewed this patient and I concur with the Shift Assessment completed by the Licensed Practical Nurse today this shift.
--- NOTE | 2018-12-30 23:38 | NUR ---
RESTING IN BED WITH EYES CLOSED.
--- NOTE | 2018-12-31 03:04 | NUR ---
CONTINUES SLEEPING WITH RESPIRATIONS UNLABORED. NO DISTRESS NOTED.
--- NOTE | 2018-12-31 06:30 | NUR ---
QUIET HOURS. NO ACUTE CHANGES IN CONDITION THIS SHIFT. RESTING IN BED WITH NO DISTRESS NOTED.
[2018-12-31 07:05] VITALS: BP 162/66
--- NOTE | 2018-12-31 07:16 | NUR ---
GREETED PATIENT AND INTRODUCED MYSELF HIS NURSE. PATIENT IS LAYING IN BED RESTING QUIETLY AT THIS TIME. RESPIRATIONS EVEN. NO S/S OF DISTRESS. CALL LIGHT IN REACH.
--- NOTE | 2018-12-31 13:00 | NUR ---
SITTING UP IN BED.DENIES NEEDS.
[2018-12-31 19:34] VITALS: BP 157/68
--- NOTE | 2018-12-31 19:40 | NUR ---
AWAKE AND ALERT. RESTING IN BED WITH RESPIRATIONS UNLABORED. LOW GRADE TEMP OF 100 NOTED. PATIENT STATES IT IS NOT UNUSUAL FOR HIM TO RUN A LOW GRADE TEMP. ROOM IS VERY HOT. DRESSING TO LEFT TOTAL KNEE DRESSING INTACT. WILL MONITOR. CALL LIGHT IN REACH.
--- NOTE | 2018-12-31 23:12 | NUR ---
PAIN RELIEVED. SLEEPING WITH RESPIRATIONS UNLABORED. NO DISTRESS NOTED. CALL LIGHT IN REACH.
--- NOTE | 2019-01-01 03:29 | NUR ---
CONTINUES SLEEPING WITH NO DISTRESS NOTED.
--- NOTE | 2019-01-01 05:05 | NUR ---
QUIET HOURS. NO ACUTE CHANGES IN CONDITION THIS SHIFT. RESTING IN BED WITH NO DISTRESS NOTED. LEFT KNEE DRESSING INTACT.
--- NOTE | 2019-01-01 05:58 | NUR ---
PATIENT SEEMS WEAKER BUT HE IS NOT SPECIFIC WITH ANY COMPLAINTS. AFEBRILE AT 98.6 . RESPIRATIONS UNLABORED. NO REDNESS OR DRAINAGE AT INCISION SITE OF LEFT KNEE. WILL CONTINUE TO MONITOR.
[2019-01-01 06:27] LABS: BASOPHILS 0.3 % (0-2); EOSINOPHILS 1.8 % (0-7); HEMATOCRIT 28.6 % (42.0-54.0); HEMOGLOBIN 9.4 g/dL (13.5-17.5); IMMATURE GRANULOCYTES 0.2 % (0-5); LYMPHOCYTES 27.4 % (15-50); MCH 31.5 pg (26.0-34.0); MCHC 32.9 g/dL (31.0-37.0); NEUTROPHILS 57.3 % (40-80); PLATELET COUNT 274 10x3/uL (130-400); RBC 2.98 10x6/uL (4.20-6.10); RDW 12.1 % (11.5-14.5); WBC 9.6 10x3/uL (4.8-10.8)
[2019-01-01 06:33] LABS: ANION GAP 14.6 mmol/L (8-16); CALCIUM 8.4 mg/dL (8.5-10.1); CARBON DIOXIDE 23.9 mmol/L (21.0-32.0); CREATININE - SERUM 1.6 mg/dL (0.6-1.3); POTASSIUM - SERUM 4.5 mmol/L (3.5-5.1)
--- NOTE | 2019-01-01 07:49 | NUR ---
ALERT AND ORIENTED. EATING BREAKFAST. PAIN MED GIVEN THIS AM. RESP EVEN AND UNLABORED.
[2019-01-01 07:55] VITALS: BP 158/70
--- NOTE | 2019-01-01 09:24 | RHP ---
PATIENT: KAMRAN XAVIER MEDICAL RECORD: [id number] ACCOUNT: [id number] LOCATION:[id number] : [birth year] ADMISSION DATE: 12/28/18 REHABILITATION HISTORY AND PHYSICAL EXAMINATION POST ADMISSION PHYSICIAN EXAMINATION POST ADMISSION PHYSICAL EXAM AND HISTORY AND PHYSICAL DATE OF ADMISSION: 12/28/2018 ADMITTING DIAGNOSES: Muscular wasting and disuse atrophy. HISTORY OF PRESENT ILLNESS: The patient is an 78-year-old gentleman, who was admitted to the hospital after a left total knee replacement after degenerative joint disease on December 25. He has got a history of neuropathy, restless legs. He has got a history of diabetes, coronary artery disease, coronary artery bypass grafting, edema, angina, peripheral vascular disease, shortness of breath, joint replacement of his right knee times 2, hip replacement, history of back pain, sciatic nerve pain, posttraumatic stress disorder. The patient had been seen and followed by both OT and PT with recommended inpatient rehab secondary to his level of function at this time and wanting to return back to his prior level of functioning. He is currently being monitored closely blood sugars due to hyperglycemia, requiring intervention with oral hypoglycemics. Monitoring his lab values closely. His white blood cell count has increased. He has got impaired balance, deconditioning, weakness, debility, impaired mobility, and gait disturbance. He is a high fall risk and self-care deficits. These are all barriers to his discharge home. He lives at home with his . He was independent with his ADLs and mobility, using a rolling walker prior to this. Currently set up for mod assist with ADLs and mod assist with his mobility. Would like to return home at his prior level of functioning or better if possible. Comorbidities include falls, hypoxia, dyspnea, hypotension, hypoglycemia, fluid overload, dehydration, electrolyte imbalance, edema, impaired skin integrity, malaise, fatigue, bleeding, anemia, cardiac arrhythmias, respiratory distress, DVT, PE, change in cognition, malnutrition, weight loss, depression, anxiety, postop pain, postop infection, and postop wound dehiscence. PAST MEDICAL HISTORY: Significant for neuropathy, restless legs, cataracts, diabetes, hypertension, pacemaker, coronary artery bypass grafting, edema, angina, coronary artery disease, peripheral vascular disease, hyperlipidemia, COPD, chronic cough, shortness of breath, prostate cancer, skin cancer, tobacco use, acid reflux, arthritis, joint problems, shingles. PAST SURGICAL HISTORY: Includes a neck fusion, coronary artery bypass grafting. He has had cryotherapy for cancer to his prostate. He has had left knee scope and replacement, coronary stents, right knee total replacement, right total hip replacement, pacemaker, and bilateral carpal tunnel release. ALLERGIES: No known drug allergies. CURRENT MEDICATIONS: Include Cozaar 100 mg daily, vitamin D 1000 units daily, atorvastatin 80 mg daily, metformin 1000 mg b.i.d. with meals, glipizide 10 mg b.i.d., Protonix 40 mg daily, Requip 1 mg at bedtime, metoprolol 50 mg b.i.d., Neurontin 300 mg t.i.d., Eliquis 2.5 mg b.i.d., Ventolin updrafts as needed, polyethylene glycol 17 grams in 8 ounces of water daily, and [place] 10/325 one HISTORY AND PHYSICAL [id number] KAMRAN XAVIER tab every 4 hours p.r.n. HABITS: He does have a history of tobacco use in the past. FAMILY HISTORY: Noncontributory. SOCIAL HISTORY: The patient hopes to return back home and get back to his prior level of functioning. REVIEW OF SYSTEMS: GENERAL: Does complain of weakness and fatigue. HEENT: Denies cold, cough, or congestion. CARDIOVASCULAR: Denies chest pain. PHYSICAL EXAMINATION: VITAL SIGNS: Stable, afebrile. GENERAL: An elderly gentleman, in no acute distress upon exam. HEENT: Normocephalic and atraumatic. Mucosa moist. NECK: Supple. No lymphadenopathy. LUNGS: Clear at this time with no wheeze, rhonchi or rales. HEART: Regular rate and rhythm. No murmurs, rubs or gallops. ABDOMEN: Soft, benign, nondistended. Positive bowel sounds times 4. EXTREMITIES: No clubbing, cyanosis or edema. Postop area appears normal. NEUROLOGIC: He does have decreased strength in his proximal muscles of his legs. LABORATORY DATA: His white count is 12.5, H&H of 10 and 32, and platelet count of 245. His sodium and electrolytes are pending. 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 The patient has potential to make improvement. We will institute the following multidisciplinary therapies including, but not limited to, physical, occupational, respiratory therapy, prosthetics, and orthotics. Given his complex medical condition and risks for further complications, rehabilitation services cannot be provided at a lower level of care such as a skilled nurse facility. PLAN: 1. Admit to [facility] for an inpatient therapy to include the following disciplines; A. Physical therapy to improve gait, all transfer skills, and bed mobility to modified independent level. B. Occupational therapy to modified independent level. C. Case management to assist with discharge planning and placement options. D. Nutrition to assist with nutritional needs. E. Rehabilitation nursing to assist in monitoring the patient's underlying medical conditions and to assist with any type of bowel or bladder management. 2. The patient's current medications and medical care will be continued. 3. The patient will be placed on standard fall precautions. 4. We will hold off on any type of blood thinner at this time secondary to his age. 5. I will check on him again in the a.m. TRANSINT:[id number] Voice Confirmation ID: [id number] DOCUMENT ID: [id number] HISTORY AND PHYSICAL [id number] KAMRAN XAVIER notes whether there has been none or any medical/functional change since admission: - No change since preadmission screen. WILIAM attests patient continues to be appropriate for IRF: - Continues to be appropriate. PATRICIA HAMMOND MD at 0924 CC: [id number] DICTATION DATE: 12/29/18820 MONORAIL CRANE OPERATOR: 12/29/18 0854 ADM IN [address] [place] [address]
--- NOTE | 2019-01-01 10:43 | NUR ---
IN THERAPY AT THIS TIME. UNCOOPERATIVE.
--- NOTE | 2019-01-01 12:38 | NUR ---
CPM IN USE. AT BS. PAIN MED WAS GIVEN. CL IN REACH.
--- NOTE | 2019-01-01 13:46 | NUR ---
Nutrition Follow-up: Diet: Regular + Glucerna PO intake: ~76% average x last 10 meals. Reports good appetite. He is not drinking Glucerna shakes and request them to be removed. Other food preferences taken. Last BM = 12/31/18. Wt: 200# (12/29/18) Labs noted: GFR 44, BUN 3, Cr 1.6, Glu 128. Significant meds: glipizide Nursing skin assessment: "reddened area" to buttocks. Continue current diet. Will D/C glucerna. RD Following.
--- NOTE | 2019-01-01 19:27 | NUR ---
PT IS RESTING IN BED WITH EYES OPEN. ALERT AND ORIENTED X 3. NO PAIN VOICED. PT DOES VOICE COMPLAINT OF FREQUENT RESTLESS LEGS. DRESSING TO LEFT KNEE IS CDI. NO DRAINAGE NOTED. SR'S ARE UP X 2 IN BED. CALL LIGHT AND BEDSIDE TABLE ARE WITHIN EASY REACH.
[2019-01-01 21:06] VITALS: BP 155/65
--- NOTE | 2019-01-01 21:58 | NUR ---
RESTING IN BED WITH EYES CLOSED. NO ACUTE DISTRESS NOTED.
--- NOTE | 2019-01-01 22:19 | NUR ---
I have reviewed this patient and I concur with the Shift Assessment completed by the Licensed Practical Nurse today this shift.
--- NOTE | 2019-01-02 01:54 | NUR ---
RESTING IN BED WITH EYES CLOSED.
[2019-01-02 08:00] VITALS: BP 154/71
--- NOTE | 2019-01-02 08:15 | NUR ---
PT RESTING IN BED WITH EYES OPEN CALL LIGHT IN REACH NO PROBLEMS WILL MONITER
--- NOTE | 2019-01-02 17:18 | NUR ---
PT RESTING IN BED WITH EYES OPEN CALL LIGHT IN REACH WILL MONITER
--- NOTE | 2019-01-02 19:34 | NUR ---
PATIENT RECEIVED SITTING UP IN BED WATCHING TV. ASSESSMENT & VITAL SIGNS DONE. NO C/O PAIN OR DISTRESS AT THIS TIME. BED LOW. ALARM ON. CALL LIGHT & URINAL WITHIN REACH. WILL CONTINUE TO MOJNITOR.
[2019-01-02 21:29] VITALS: BP 154/81
--- NOTE | 2019-01-03 00:21 | NUR ---
PT RESTING QUIETLY WITH EYES CLOSED. REPSIRATIONS EVEN. NO S/S OF DISTRESS. CALL LIGHT IN REACH. SR UP X 2. BED IN LOWEST POSITION.
--- NOTE | 2019-01-03 00:40 | NUR ---
I have reviewed this patient and I concur with the Shift Assessment completed by the Licensed Practical Nurse today this shift.
--- NOTE | 2019-01-03 02:46 | NUR ---
PATIENT EYES CLOSED. RESPIRATIONS 18 & EVEN. BED LOW. ALARM ON. CALL LIGHT & URINAL WITHIN REACH. WILL CONTINUE TO MONITOR.
[2019-01-03 06:46] LABS: ANION GAP 13.8 mmol/L (8-16); BASOPHILS 0.4 % (0-2); CALCIUM 8.7 mg/dL (8.5-10.1); CARBON DIOXIDE 25.2 mmol/L (21.0-32.0); CREATININE - SERUM 1.5 mg/dL (0.6-1.3); EOSINOPHILS 2.6 % (0-7); HEMATOCRIT 29.6 % (42.0-54.0); HEMOGLOBIN 9.4 g/dL (13.5-17.5); IMMATURE GRANULOCYTES 0.1 % (0-5); LYMPHOCYTES 29.1 % (15-50); MCH 30.9 pg (26.0-34.0); MCHC 31.8 g/dL (31.0-37.0); MCV 97.4 fL (80.0-100.0); MEAN PLATELET VOLUME 8.7 fL (7.4-10.4); NEUTROPHILS 56.8 % (40-80); PLATELET COUNT 302 10x3/uL (130-400); RBC 3.04 10x6/uL (4.20-6.10); RDW 12.1 % (11.5-14.5); WBC 8.2 10x3/uL (4.8-10.8)
--- NOTE | 2019-01-03 08:00 | NUR ---
SHIFT ASSMT COMPLETED.
[2019-01-03 08:18] VITALS: BP 155/67
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
--- NOTE | 2019-01-03 12:00 | NUR ---
EATING LUNCH. AT BEDSIDE.
--- NOTE | 2019-01-03 16:41 | NUR ---
CARE TEAM MEETING: PATIENT SPOUSE ATTENDED MEETING. HER QUESTIONS AND CONCERNS WERE ADDRESSED. TENATIVE DISCHARGE DATE IS 01/09/19. WILL CONTINUE TO FOLLOW WITH PATIENT.
--- NOTE | 2019-01-03 19:48 | NUR ---
RESTING IN BED WITH RESPIRATIONS UNLABORED. DRESSING INTACT TO LEFT KNEE. NO DISTRESS NOTED. CALL LIGHT IN REACH.
[2019-01-03 19:54] VITALS: BP 141/72
--- NOTE | 2019-01-04 00:55 | NUR ---
SLEEPING WITH RESPIRATIONS UNALBORED. NO DISTRESS NOTED. CALL LIGHT IN REACH.
--- NOTE | 2019-01-04 02:46 | NUR ---
SLEEPING WITH NO DISTRESS NOTED. CALL LIGHT IN REACH.
--- NOTE | 2019-01-04 05:13 | NUR ---
QUIET HOURS. NO ACUTE CHANGES IN CONDITION THIS SHIFT. NO DISTRESS NOTED. CALL LIGHT IN REACH.
[2019-01-04 08:00] VITALS: BP 156/70
--- NOTE | 2019-01-04 14:38 | NUR ---
RESTING QUIETLY IN BED. JUST CAME OFF CPM MACHINE TO LLE. DENIES NEEDS. CALL LIGHT IN REACH.
--- NOTE | 2019-01-04 20:00 | NUR ---
PATIENT RECEIVED SITTING UP IN BED. ASSESSMENT & VITAL SIGNS DONE. NO C/O PAIN OR DISTRESS. BED LOW. ALARM ON. URINAL & CALL LIGHT WITHIN REACH. WILL CONTINUE TO MONITOR.
[2019-01-04 20:14] VITALS: BP 140/65
--- NOTE | 2019-01-05 01:00 | NUR ---
I have reviewed this patient and I concur with the Shift Assessment completed by the Licensed Practical Nurse today this shift.
--- NOTE | 2019-01-05 04:14 | NUR ---
PATIENT EYES CLOSED. RESPIRATIONS 18 & EVEN. BED LOW. ALARM ON. CALL LIGHT WITHIN REACH. WILL CONTINUE TO MONITOR.
[2019-01-05 07:40] LABS: HEMATOCRIT 29.7 % (42.0-54.0); HEMOGLOBIN 9.9 g/dL (13.5-17.5); LYMPHOCYTES 29.1 % (15-50); MCH 31.3 pg (26.0-34.0); MCHC 33.3 g/dL (31.0-37.0); MEAN PLATELET VOLUME 7.9 fL (7.4-10.4); NEUTROPHILS 62.5 % (40-80); PLATELET COUNT 314 10x3/uL (130-400); RBC 3.16 10x6/uL (4.20-6.10); RDW 11.4 % (11.5-14.5); WBC 7.5 10x3/uL (4.8-10.8)
[2019-01-05 08:00] VITALS: BP 136/69
[2019-01-05 08:05] LABS: ANION GAP 12.4 mmol/L (8-16); CALCIUM 8.8 mg/dL (8.5-10.1); CARBON DIOXIDE 26.3 mmol/L (21.0-32.0); CREATININE - SERUM 1.6 mg/dL (0.6-1.3); POTASSIUM - SERUM 4.7 mmol/L (3.5-5.1)
--- NOTE | 2019-01-05 08:14 | NUR ---
NUTRITION F/U PT TOLERATING REG DIET WITH ~75% INTAKE RECENT MEALS. NO RECENT BM RECORDED BUT PT DENIES CONSTIPATION. WILL CONTINUE TO HONOR FOOD PREFERENCES, MONITOR PO INTAKE. RD FOLLOWING
[2019-01-05 18:00] VITALS: BP 143/71
--- NOTE | 2019-01-05 19:25 | NUR ---
PT RESTING QUIETLY. CL IN REACH. NO DISTRESS NOTED. BED IN LOW SIDE RAILS X2. LUNGS CLEAR. BOWEL ACTIVE X4. RESP EVEN AND UNLABORED. A/O X4. WILL CONTINUE TO MONITOR.
--- NOTE | 2019-01-06 02:17 | NUR ---
I have reviewed this patient and I concur with the Shift Assessment completed by the Licensed Practical Nurse today this shift.
[2019-01-06 08:00] VITALS: BP 158/71
--- NOTE | 2019-01-06 15:51 | NUR ---
LAYING IN BED WATCHING FOOTBALL ON TV. DENIES NEEDS OR C/O. LLE IN CPM MACHING. SETTING AT 85 DEGREES. PT DENIES WORSENING PAIN. NO S/S INFECTION TO LEFT KNEE INCISION. CALL LIGHT IN REACH
--- NOTE | 2019-01-06 19:33 | NUR ---
PT RESTING QUIETLY. NO DISTRESS NOTED. CL IN REACH. RESP EVEN AND UNLABORED. LUNGS CLEAR. BOWEL ACTIVE X4. BED IN LOW SIDE RAILS X2. WILL CONTINUE TO MONITOR.
[2019-01-06 20:37] VITALS: BP 140/63
--- NOTE | 2019-01-07 00:04 | NUR ---
QUIET HOURS. PT LYING IN BED EYES CLOSED RESTING QUIETLY. RR EVEN AND UNLABROED. CL IN REACH
--- NOTE | 2019-01-07 05:59 | NUR ---
I have reviewed this patient and I concur with the Shift Assessment completed by the Licensed Practical Nurse today this shift.
--- NOTE | 2019-01-07 06:35 | NUR ---
FSBS 122
[2019-01-07 08:00] VITALS: BP 151/86
--- NOTE | 2019-01-07 12:41 | NUR ---
SITTING UP IN WC IN ROOM. EYES CLOSED. RESP EFFORT NON LABORED. CALL LIGHT IN REACH.
--- NOTE | 2019-01-07 19:39 | NUR ---
PT LYING IN BED WATCHING TV. CL IN REACH. DENIES NEEDS AT THIS TIME. BED IN LOW SIDE RAILS X2. A/O X4. LUNGS CLEAR. BOWEL ACTIVE X4. RESP EVEN AND UNLABORED. WILL CONTINUE TO MONITOR.
[2019-01-07 20:38] VITALS: BP 141/61
--- NOTE | 2019-01-07 23:09 | NUR ---
QUIET HOURS. PT LYING IN BED SUPINE EYES CLOSED RESTING QUIETLY. RR EVEN AND UNLABORED. CL IN REACH
--- NOTE | 2019-01-08 02:32 | NUR ---
PT LYING IN BED SUPINE EYES CLOSED RESTING COMFORTABLY. RR EVEN AND UNLABORED. CL IN REACH.
[2019-01-08 06:25] LABS: BASOPHILS 0.3 % (0-2); EOSINOPHILS 2.4 % (0-7); HEMATOCRIT 30.6 % (42.0-54.0); IMMATURE GRANULOCYTES 0.1 % (0-5); LYMPHOCYTES 28.9 % (15-50); MCH 31.4 pg (26.0-34.0); MCHC 32.7 g/dL (31.0-37.0); MCV 96.2 fL (80.0-100.0); MONOCYTES 9.5 % (2-11); NEUTROPHILS 58.8 % (40-80); PLATELET COUNT 358 10x3/uL (130-400); RBC 3.18 10x6/uL (4.20-6.10); RDW 12.3 % (11.5-14.5); WBC 9.1 10x3/uL (4.8-10.8)
[2019-01-08 06:53] LABS: ANION GAP 14.6 mmol/L (8-16); CARBON DIOXIDE 24.1 mmol/L (21.0-32.0); CREATININE - SERUM 1.4 mg/dL (0.6-1.3); POTASSIUM - SERUM 4.7 mmol/L (3.5-5.1)
[2019-01-08 07:31] VITALS: BP 158/77
--- NOTE | 2019-01-08 14:50 | NUR ---
LAYING IN BED WATCHING TV. DENIES NEEDS. VISISTED TODAY. PT HAPPY TO BE GOING HOME TOMORROW.
[2019-01-08 19:23] VITALS: BP 132/72
--- NOTE | 2019-01-08 19:25 | NUR ---
PT LYING IN BED WATCHING TV. CL IN REACH. DENIES NEEDS AT THIS TIME. BED IN LOW SIDE RAILS X2. LUNGS CLEAR. BOWEL ACTIVE X4. A/O X4. RESP EVEN AND UNLABORED. WILL CONTINUE TO MONITOR.
--- NOTE | 2019-01-09 02:55 | NUR ---
QUIET HOURS. PT LYING IN BED SUPINE EYES CLOSED RESTING. RR EVEN AND UNLABORED. CL IN REACH
--- NOTE | 2019-01-09 03:54 | NUR ---
I have reviewed this patient and I concur with the Shift Assessment completed by the Licensed Practical Nurse today this shift.
--- NOTE | 2019-01-09 08:07 | NUR ---
PT DISCHARGED TO HOME GOING TO [facility] APPT AT 9:30 REQUESTED MEDS BEFORE HE LEFT LEFT VIA WHEELCHAIR DISCHARGE SUMMARY AND MEDS REVIEWED WITH PT. PT TRANSFERED FROM WHEELCHAIR TO [facility] NO PROBLEMS TOLERATED WELL.
--- NOTE | 2019-01-09 09:04 | NUR ---
PATIENT DISCHARGING HOME THIS AM WITH FAMILY. PATIENT HAS DECLINED HOME HEALTH AT THIS TIME. A SCRIPT FOR OUTPATIENT THEREAPY GIVEN. NO NEW DME NEEDED AT THIS TIME. [facility] FORMS SIGNED, COPY GIVEN TO PATIENT AND FILED IN CHART. DR. KUMAR 01/22/19 @ 9:45, DR. HOUSTON 02/08/19 @ 9:15.DISCHARGE INSTRUCTIONS FAXED TO PCP AND REVIEWED WITH PATIENT AND SPOUSE.
== END 2019-01-09 08:12 | disposition home or self-care (01) | DRG 557 ==
LOC: D.REHAB 15:53
PROVIDERS: ADMIT Emergency Medicine; ATTEND Emergency Medicine
DX: M62.50 Muscle wasting and atrophy, not elsewhere classified, unspecified site (principal); I26.99 Other pulmonary embolism without acute cor pulmonale; I50.21 Acute systolic (congestive) heart failure; I82.409 Acute embolism and thrombosis of unspecified deep veins of unspecified lower extremity; E46 Unspecified protein-calorie malnutrition; D62 Acute posthemorrhagic anemia; I13.0 Hypertensive heart and chronic kidney disease with heart failure and stage 1 through stage 4 chronic kidney disease, or unspecified chronic kidney disease; N17.9 Acute kidney failure, unspecified; R09.02 Hypoxemia; I95.9 Hypotension, unspecified; E87.70 Fluid overload, unspecified; E86.0 Dehydration; E87.8 Other disorders of electrolyte and fluid balance, not elsewhere classified; R53.81 Other malaise; R53.83 Other fatigue; D64.9 Anemia, unspecified; I49.9 Cardiac arrhythmia, unspecified; F41.8 Other specified anxiety disorders; T81.31XD Disruption of external operation (surgical) wound, not elsewhere classified, subsequent encounter; G89.18 Other acute postprocedural pain; E11.649 Type 2 diabetes mellitus with hypoglycemia without coma; K21.9 Gastro-esophageal reflux disease without esophagitis; I25.10 Atherosclerotic heart disease of native coronary artery without angina pectoris; E78.5 Hyperlipidemia, unspecified; E11.51 Type 2 diabetes mellitus with diabetic peripheral angiopathy without gangrene; J44.9 Chronic obstructive pulmonary disease, unspecified; E11.40 Type 2 diabetes mellitus with diabetic neuropathy, unspecified; G25.81 Restless legs syndrome; E11.22 Type 2 diabetes mellitus with diabetic chronic kidney disease; N18.3 Chronic kidney disease, stage 3 (moderate); M19.90 Unspecified osteoarthritis, unspecified site; Z95.1 Presence of aortocoronary bypass graft